=== PATIENT | female | born 1950 | race Caucasian/White ===

== ENCOUNTER 2016-03-09 16:30 | Inpatient (IN) | payer OTHER, MEDICAID ==
[2016-03-09] VITALS (7 sets, daily range): BP systolic 97–126; BP diastolic 64–75; PULSE 77–87; RESP 14–24; O2SAT 94–98
[~2016-03-09] VITALS: Ht 160 cm; Wt 109.8 kg
[~2016-03-09 16:30] MED LIST: ALBU8.5H2 IH; ASPI-973 PO; CHOL100045 PO; CLOT60CR TOPICAL; CYAN1TAB42 PO; DICL100G30 TOP; DOXE50CA3 PO; FLUO40CA PO; FUR20 PO; HYDR-656 PO; LEVO100T6 PO; METF500T4 PO; ONDA4TAB12 PO; POTA20TA16 PO; PREG150C PO
[2016-03-09] MEDS ORDERED: 0.9% Sodium Chloride 1,000 ML IV ONE (16:50)
[2016-03-09 17:28] LABS: BASOPHILS % (AUTO) 0.5 % (0-3)
[2016-03-09 17:31] LABS: EOSINOPHILS % (AUTO) 3.2 % (0-5); MONOCYTES % (AUTO) 11.1 % (4-12); Mean Corpuscular Hemoglobin 28.2 pg (27.0-35.0); Mean Corpuscular Volume 91.8 fL (81-100); NEUTROPHILS % (AUTO) 39.7 % (40-74); Platelet Count 229 bil/L (150-400)
--- NOTE | 2016-03-09 17:41 | DRSVH ---
PROCEDURE: X-RAY CHEST ONE VIEW, PORTABLE ([id number]) INDICATIONS: chills TECHNIQUE: One view of the chest was acquired. COMPARISON: [facility], CR, XR CHEST 1VW (PORTABLE), 02/03/2016, 13:54. FINDINGS: Surgical changes and devices: Right Port-A-Cath is unchanged. Surgical clips are present at the thora cic inlet and at the left chest wall. Lungs and pleura: Mild streaky opacities at bilateral lung bases. No pleural effusion or pneumothorax . Mediastinum: Mediastinal contours appear normal. Heart size is normal. Bones and chest wall: No suspicious bony lesions. Overlying soft tissues appear unremarkable. IMPRESSION: Bibasilar streaky radiopacities. Differential considerations include atelectasis, aspirat ion, infection. Dictated by: Khushbu Harmon M.D. on 03/09/2016 at 17:38 Approved by: Khushbu Harmon M.D. on 03/09/2016 at 17:39
[2016-03-09 17:53] LABS: TROPONIN T < 0.010 ug/L (0.0-0.011)
[2016-03-09 18:00] LABS: Lipase 10 U/L (13-60); Magnesium 1.4 mg/dL (1.6-2.6)
[2016-03-09] MEDS: HYDROmorphone 1 mg/mL Inj IVPUSH PRN ×2 (18:01→21:25)
[2016-03-09] MEDS: Ondansetron 2 mg/mL 2 mL Inj IVPUSH PRN (18:01)
[2016-03-09] MEDS ORDERED: Meropenem Inj 1,000 MG in IV Premix 1 EACH IV ONE (18:20)
--- NOTE | 2016-03-09 18:20 | ED.REPORT ---
HPI-Abd Pain F 40 and Over Date of Service Mar 09, 2016 ED Provider: Elizabeth Cruz MD Pt is a 65 y/o female w/ a hx of primary metastatic ovarian cancer on chemotherapy, diabetes, hypertension, presenting to the ED from [facility] due to possible peritoneal infection. She has a peritoneal drain in place and purulent fluid was pulled out of it today at the [facility] after she came in because she has been feeling unwell for a few days and noticed a red tender spot over her left abdomen. She was admitted last December and January for infections. She saw her oncologist Dr. Winkler and was given antibiotics and iron supplements. She developed diarrhea and stopped the antibiotics which caused her diarrhea to resolve. She c/o associated generalized weakness, nausea, chills, abdominal pain. She denies fever, vomiting , diarrhea, bloody stools. CODE STATUS: FULL CODE - Discussed with the patient during interview in the ED today Oncologist: Cathi Nursing Notes Stated Complaint: WOUND INFECTION-SENT FROM [facility] Chief Complaint: Female Abdominal Pain Nursing Notes Reviewed: Yes Allergies: Coded Allergies: hydrocodone (Verified Allergy, Severe, Rash,Itching,, 11/27/15) cephalexin (Verified Allergy, Intermediate, itching, vomiting, 11/27/15) Scheduled Aspirin (Aspirin) 81 Mg Tablet 81 MG PO DAILY Cholecalciferol (Vitamin D3) (Vitamin D) 1,000 Unit Capsule 2,000 UNIT PO DAILY Cyanocobalamin/Folic Acid (Vitamin W03-Hdwqd Acid Tablet) 1 Each Tablet 1 EACH PO DAILY Fluoxetine (Fluoxetine) 40 Mg Capsule 40 MG PO DAILY Levothyroxine (Levothyroxine) 100 Mcg Tablet 100 MCG PO DAILY Metformin (Metformin) 500 Mg Tablet 500 MG PO BID Pregabalin (Lyrica) 150 Mg Capsule 150 MG PO TID Scheduled PRN Albuterol HFA (Proair HFA) 8.5 Gm Hfa.aer.ad 2 PUFFS IH Q4 PRN PRN For Shortness of Breath Clotrimazole (Athlete's Foot) 1 % Cream..g. 1 APPLIC TOPICAL TID PRN PRN dry cracking skin on feet Diclofenac Sodium (Diclofenac Sodium) 1 % Gel..gram. 1 APPLIC TOP PRN PRN PRN KNEE PAIN Doxepin (Doxepin) 50 Mg Capsule 2 CAP PO HS PRN PRN For Insomnia Ondansetron ODT (Ondansetron ODT) 4 Mg Tab.rapdis 4 MG PO q8hr PRN PRN For Nausea hydrOXYzine Hcl (HydrOXYzine Hcl) 25 Mg Tablet 25 MG PO TID PRN PRN For Anxiety or Agitation General Time Seen by MD: 18:08 Chief Complaint Other (Possible peritoneal infection) Hx Obtained From: Patient Arrived By: Wheelchair Sudden in Onset?: No Onset Occurred: 3 days ago Symptom Duration: Since onset Progression since Onset: Gradually worsening Location: : LLQ: LUQ Quality: Painful Severity: Current: Mild Severity: Maximum: Moderate Recent Healthcare: Recent doctor visit, Recent hospitalization, Recent testing , Previous diagnosis, Prior workup Similar Sx Previous: Yes Past Medical History Past Medical History Notes: Oncologist: Cathi Past Medical History Metastatic ovarian cancer HTN DM - metformin (with neuropathy) Breast CA Fibromyalgia Hernia Anxiety Depression Past Surgical History Port-a-cath Lumpectomy Lymphnodes Thyroid Reports: Appendectomy, Hysterectomy Family History CAD - father's side Smoking History Former Smoker Social History Alcohol Use: "Social" Drug Use: THC Ambulatory Status Wheelchair Review of Systems Constitutional: Reports: Chills, Weakness - generalized, Denies: Fever Respiratory: Denies: Non-productive cough Cardiovascular: Denies: Chest pain GI: Reports: Abdominal pain, Nausea, Denies: Bloody/tarry stool, Diarrhea, Hematochezia, Vomiting Complete sys rev & neg: except as marked. Skin: Reports Rash Neurologic: Denies: Confusion Physical Exam Vital Signs Vital Signs (First) Date Time Temp Pulse Resp B/P Pulse Ox O2 Delivery O2 Flow Rate FiO2 03/09/16 16:35 36.9 85 22 112/68 94 Room Air 03/09/16 17:17 2 Initial VS: Reviewed Head / Eyes: Atraumatic, Normocephalic, PERRL ENT: Mucous membranes moist, Conjunctiva normal, No scleral icterus Neck: Supple, Full range of motion Skin: Warm, Dry Neurologic: Alert, Oriented, Nonfocal Psychiatric: Mood/affect normal, Behavior normal, Normal thought content General/Constitutional: Awake, Alert, Cooperative Chronically ill-appearing Respiratory / Chest: Atraumatic, Breath sounds NL, Breath sounds = bilat, No respiratory distress, No rales, No rhonchi, No wheezing, No retractions, No stridor, No chest tenderness, No chest wall deformity, No crepitus Cardiovascular: Heart rate NL, Regular rhythm, Heart sounds NL, No gallop, No murmurs, No rubs, Cap refill not delayed, Peripheral circulation NL Lower Ext Edema: Positive: Bilateral 2+, Pitting Abdomen: Atraumatic, Soft, No rebound Abdomen is tender on the left side where there is a left-sided peritoneal catheter which has surround erythema, edema, and induration. No tenderness to palpation on the right. Back: Full range of motion, Painless range of motion Interpretation & Diagnostics Lab Results Interpretation Result Diagram: 03/09/16 1715 03/09/16 1715 Test 03/09/16 17:15 White Blood Count 1.9th/mm3 (3.8-10.1) Red Blood Count 3.19mil/mm3 (3.90-5.20) Hemoglobin 9.0g/dL (12.0-15.6) Hematocrit 29.3% (35.0-46.0) Mean Corpuscular Volume 91.8fL (81-100) Mean Corpuscular Hemoglobin 28.2pg (27.0-35.0) Mean Corpuscular Hemoglobin Concent 30.7% (32.0-37.0) Red Cell Distribution Width 20.8% (12.3-15.4) Platelet Count 229bil/L (150-400) Neutrophils (%) (Auto) 39.7% (40-74) Lymphocytes (%) (Auto) 45.0% (14-46) Monocytes (%) (Auto) 11.1% (4-12) Eosinophils (%) (Auto) 3.2% (0-5) Basophils (%) (Auto) 0.5% (0-3) Sodium Level 137mEq/L (134-144) Potassium Level 3.7mEq/L (3.5-5.2) Chloride Level 96mEq/L (97-108) Carbon Dioxide Level 30mmol/L (18-29) Blood Urea Nitrogen 13mg/dL (8-27) Creatinine 0.49mg/dL (0.57-1.00) Estimat Glomerular Filtration Rate 183mL/min (>59) Glucose Level 141mg/dL (60-99) Lactic Acid Level 1.2mmol/L (0.4-2.0) Calcium Level 8.4mg/dL (8.5-10.1) Magnesium Level 1.4mg/dL (1.6-2.6) Total Bilirubin 0.6mg/dL (0.0-1.2) Aspartate Amino Transf (AST/SGOT) 19U/L (0-50) Alanine Aminotransferase (ALT/SGPT) 20U/L (0-32) Alkaline Phosphatase 132U/L (25-165) Troponin T < 0.010ug/L (0.0-0.011) Total Protein 5.3g/dL (6.4-8.4) Albumin 2.4g/dL (3.4-5.0) Lipase 10U/L (13-60) ECG Interpretation ECG Interpretation: Sinus rhythm rate 79 RBBB T wave inversion in AvR and V1 Time: 18:31 Interpreted by: ED physician Normal ECG Interpretation: No acute ischemic changes, No change from prior ECGs X-Ray Chest Interpretation Chest Xray Interpretation: IMPRESSION: Bibasilar streaky radiopacities. Differential considerations include atelectasis, aspiration, infection. Dictated by: Khushbu Harmon M.D. on 03/09/2016 at 17:38 Approved by: Khushbu Harmon M.D. on 03/09/2016 at 17:39 View: Portable, 1 view Interpretation / Wet Read by: Interpret - Radiologist Re-Eval/Medical Decision Med Decision/Clinical Course 65-year-old female with metastatic ovarian cancer with ascites sent here from oncology clinic with concern for peritonitis. Differential diagnosis includes but is not limited to peritonitis versus cellulitis versus pneumonia versus urinary tract infection. Patient's ascitic fluid Gram stain shows gram- negative rods. She was last here in January with gram-negative peritonitis, and treated with meropenem. I have started her on meropenem in the emergency department, given her a fluid bolus, and admitted her to the hospitalist service. She is neutropenic. I also discussed the case with her oncologist who requested she be started on Neupogen. I discussed this with the hospitalist who is aware. Patient is amenable to admission at this time with oncology following Source of Hx: Old records Re-Evaluation/Progress : Time of Eval: 18:31 Re-Evaluation/Progress Note: Pt rechecked. Informed pt of need for admission due to abnormal lab values and peritoneal infection. Pt understands and agrees with plan for admission. All questions addressed. Consultation #1: Referral / Consult Name: Cesar Raines MD Consulted With: Hospitalist Call Returned at: 19:11 Executive Admin: Will see patient, Agrees with eval, Agrees with plan, Accepts admit Note: Case discussed. Consultation #2: Referral / Consult Name: Lance Winkler MD Call Returned at: 19:16 Executive Admin: Agrees with eval, Agrees with plan Note: Discussed case with oncology. Counseled Regarding: Diagnosis, Lab results, Need for admission Discharge & Departure Primary Impression: Bacterial peritonitis Additional Impression: Gram-negative bacterial infection Disposition: ADMITTED TO HOSPITAL Discharge Condition All VS Reviewed: Yes Condition: Stable Referrals: Heide Lowery MD (PCP) Lance Winkler MD Attestation Portions of this note were transcribed by Alvaro Villagomez. I, Dr. Cruz personally performed the history, physical exam and medical decision-making; I reviewed and confirmed the accuracy of the information in the transcribed note. Signed by Evy Garvey, 03/09/16 - [id number] copies to: Lance Winkler MD; Heide Lowery MD, Rebecca A MD Mar 09, 2016 18:20 ALVARO VILLAGOMEZ Mar 09, 2016 18:36
[2016-03-09] MEDS ORDERED: Polyethylene Glycol (PEG) 17 Gm Powder PO PRN (19:50)
[2016-03-09] MEDS ORDERED: MetoCLOpramide 5 mg/mL 2 mL Inj IVPUSH PRN (19:50)
[2016-03-09 21:50] LABS: APPEARANCE,URINE CLEAR (CLEAR,HAZY); COLOR,URINE DARK YELLOW (YELLOW)
[2016-03-09 21:51] LABS: OCCULT BLOOD,URINE NEGATIVE (NEGATIVE); UROBILINOGEN,URINE NORMAL (NORMAL)
--- NOTE | 2016-03-09 23:00 | NUR ---
Admission Pt admitted at 2054 to room 242-1 in stable condition. Pt assisted to the bathroom to void upon arrival. Urine sample collected and sent to lab. Pt placed on home dose of oxygen at 2 L. Pt placed on telemetry monitoring and noted to be in a SR with IVCD per auto transmission technician. Pt reports 8/10 pain to left upper abdominal quadrant . Redness and heat noted to site distal of pigtail drain. Pigtail drain intact and clamped RUC port-a cath accessed and intact. Initial assessment completed as charted. Large right abdominal hernia noted. Dr. Baker notified of pt's admit to room 242-1 at 2300; awaiting new orders. Call light within reach and bed locked in the low position.
[2016-03-09] MEDS ORDERED: Magnesium Sulf 4 Gm/100 mL H2O 4 GM in IV Premix 1 EACH IV ONE (23:30)
[2016-03-09] MEDS ORDERED: Glucose 40% Oral Gel 15 Gm Tube PO PRN (23:45)
[2016-03-09] MEDS ORDERED: Albuterol 2.5 mg/3 mL Inhalation Solution NEB PRN (23:45)
[2016-03-09] MEDS ORDERED: Doxepin 50 mg Capsule PO PRN (23:50)
[2016-03-09] MEDS ORDERED: hydrOXYzine Pamoate 25 mg Capsule PO PRN (23:50)
[2016-03-09] MEDS ORDERED: Filgrastim 480 mCg/1.6 mL Inj SUBQ ONE (23:55)
--- NOTE | 2016-03-09 23:55 | PCM.HPMED ---
Subjective Date of Service Mar 09, 2016 Primary Provider: Admitting Physician: Cesar Raines MD Primary Care Physician: Heide Lowery MD Attending Physician: Cesar Raines MD Chief Complaint: Abdominal pain, discolored peritoneal fluid History of Present Illness: Patient is a 65 year old female with a history of ovarian cancer with progressive ascites currently undergoing chemo, breast cancer s/p lumpectomy and chemo, DM2, HTN, hypothyroidism, HLP, and depression. She presented to [facility] ED on 03/09/16 from the [facility]. She was sent over by Dr. Winkler due to a concerning appearance of her peritoneal fluid and erythema of the abdomen at the site of a previous catheter. Dr. Winkler was worried about a recurrence of bacterial peritonitis and Dr. Wright agreed to evaluate the patient further. The patient reports being more short of breath than her baseline, increased weakness/fatigue, nausea, having chills, and increased thirst. She has 8/10 abdominal pain and has noticed increased redness on the left side of her abdomen over the last few days. She denies fever, vomiting, dysuria/hematuria. Her appetite is poor but it has been since she started chemo again. She does report that on , 03/04/16, her peritoneal fluid began to look abnormal. She states that she was given antibiotics that day and those caused diarrhea. Patient hospitalized about 1 month ago (02/03/16 to 02/06/16) with bacterial peritonitis. Paracentesis done at that time showed Enterococcus faecalis ( group D strep). Dr. Porter was consulted for antibiotic management. Patient received daptomycin after discharge until 02/11/16. In the ED the patient is afebrile with a heart rate of 82, respiratory rate 18, blood pressure 104/64, and O2 saturation of 98% on 2L via nasal cannula. Labs remarkable for WBC 1.9, HGb 9, magnesium 1.4. Meropenem and IV fluids given in the ED. Peritoneal fluid sent for culture. Patient admitted for management of recurrent peritonitis. Review of Systems: A comprehensive review of systems was conducted with the patient and found to be negative except as above in the history of present illness. Allergies Coded Allergies: hydrocodone (Verified Allergy, Severe, Rash,Itching,, 11/27/15) cephalexin (Verified Allergy, Intermediate, itching, vomiting, 11/27/15) Home Medications From Dr. Winkler's note on 03/09/16: Albuterol HFA 2 puffs Q4-6H PRN SOB Aspirin 81 MG daily Cholecalciferol 2,000 UNIT daily Cyanocobalamin/Folic Acid 1 Tablet daily Doxepin 50-100 mg HS PRN insomnia Fluoxetine 40 mg daily Furosemide 20 mg daily Levothyroxine 100 mcg daily Metformin 500 mg BID Potassium chloride 20 mEq daily Lyrica 150 mg TID Hydroxyzine 25 mg TID PRN anxiety Clotrimazole TID for athlete's foot Diclofenac 1% gel PRN knee pain PMH Ovarian cancer with progressive ascites Remote breast cancer with lumpectomy and chemotherapy BRCA2 positive Morbid obesity Diabetes mellitus 2, had been on metformin Hypertension Hypothyroidism Hyperlipidemia Depression Surgical History Lumpectomy for breast cancer Recent placement of peritoneal drain Family History Negative family history of breast cancer Social History Hx Alcohol Use: Yes (occasional drink now for special occasions) Hx Substance Use: No Hx Tobacco Use: Yes (patient smoked from the ages of approximately [age] 1-1/2 packs per day) Smoking Status: Former Smoker Exam Vital Signs Vital Sign - Last Date Time Temp Pulse Resp B/P Pulse Ox O2 Delivery O2 Flow Rate FiO2 03/09/16 21:27 36.3 87 24 126/75 97 Nasal Cannula 2.00 Exam Alert and oriented x3, no acute distress Head atraumatic, normocephalic PERRLA, EOMI, sclera anicteric Mucus membranes dry, no oral thrush observed No cervical lymphadenopathy, neck supple, nontender No JVD noted Cardiac tones regular rate and rhythm with no murmur appreciated Lungs clear to auscultation bilaterally but diminished; Port-a-Cath in right upper chest Diffuse abdominal tenderness, significant distention - ascites, no bowel tones noted, large hernia in the RLQ; PleurX catheter on left side [place] absent Radial pulses normal and equivalent bilaterally, dorsalis pedis pulses difficult to appreciate bilaterally No cyanosis, clubbing; moderate pitting edema in both lower extremities Site of previous PleurX catheter in left abdomen with approx. 5 cm area of erythema and induration; no open wound Cranial nerves appear to be fully intact, normal speech, patient can move upper and lower limbs grossly Lab and Diagnostics Result Diagram: 1/24/17 1715 1/24/17 1715 X-Rays, CTs and MRIs Chest x-ray IMPRESSION: Bibasilar streaky radiopacities. Differential considerations include atelectasis, aspiration, infection. Dictated by: Khushbu Harmon M.D. on 03/09/2016 at 17:38 12-lead ECG Rate 79 QTc 505 Right bundle branch block Assessment & Plan Patient is a 65 year old female with a history of ovarian cancer with progressive ascites currently undergoing chemo, breast cancer s/p lumpectomy and chemo, DM2, HTN, hypothyroidism, HLP, and depression. She presented to [facility] ED on 03/09/16with signs and symptoms of recurrent peritonitis. Admitted for further evaluation and management. 1. Bacterial peritonitis, acute, present on admission. - Likely represents a recurrence. Patient last hospitalized in late January 2016 with Group D strep peritonitis. - Possible cellulitis in the left abdomen with approx. 5 cm area of erythema and induration. - Infectious disease consultation already ordered as patient required daptomycin during last admission. We appreciate Dr. Porter's recommendations. - Meropenem started in ED. Will order no additional antibiotics at this time until ID can give recommendations concerning this patient. - Peritoneal fluid sent to lab from [facility] and culture pending. Those results will populate under a separate visit from this hospitalization. - Dilaudid 0.5 mg IV available Q3 PRN pain. 2. Ovarian cancer with evidence of loculated ascites and recent placement of a left peritoneal drain, ongoing. - Dr. Winkler is the patient's oncologist. - BRCA2 positive. - Last chemo 03/04/16 with next dose 03/18/16. - Would appreciate the continued involvement of Dr. Winkler in the patient's care during this hospitalization. 3. Leukopenia, acute, present on admission. - Likely secondary to chemotherapy. - Dr. Winkler requested administration of Neupogen. 480 mcg ordered tonight as one time dose. With additional daily doses ordered as well. - Continue to monitor CBC. - Would appreciate the continued involvement of Dr. Winkler for recommendations. 4. Hypomagnesemia, acute, present on admission. - Replaced with 4gm mag sulfate 1 time. - Continue to monitor with mag level. 5. Chronic hypoxic respiratory failure, stable. - Baseline O2 2L via nasal cannula. - Saturation goals 92-96%. - Continue supplemental O2 as needed. 6. Diabetes mellitus Type 2, controlled. - Last A1c on 02/03/16 - 6.4. - Will hold metformin (500 mg BID) at this time. Low dose correctional scale available as needed. - Continue Lyrica 150 mg TID for neuropathic pain. 7. Prolonged QTc, acute, present on admission. - QTc 505. - Avoid QTc prolonging medications where possible. 8. Peripheral edema in the setting of ascites, chronic, ongoing. - Continue furosemide 20 mg daily with potassium 20 mEq daily. - Monitor fluid status closely and consider increased dosing if patient progresses to a decompensated state. 9. Hypothyroidism, chronic, presume stable. - Continue levothyroxine 100 mcg daily. 10. Depression, chronic, presume stable. - Continue fluoxetine 40 mg daily. - Continue hydroxyzine 25 mg TID PRN anxiety. 11. Morbid obesity, chronic. - BMI 42.0. - Bowel regimen PRN. - Antiemetic PRN. - Tylenol available PRN mild pain, fever. - Antacid available PRN. - Albuterol neb available Q4 PRN SOB. - Doxepin 50 mg HS PRN insomnia. Patient admitted under inpatient status with expected length of stay greater than 2 midnights for severity of present symptoms, complexities of treatment plan and risk for adverse events. PCP: Heide Lowery Oncologist: Lance Winkler Resuscitation Status: CPR: Attempt Resuscitation Attending Statement The patient was seen and examined together with Dr. Baker on 03/09 and I agree with the history, exam and plan as outlined in the note above. Deb Baker DO Mar 09, 2016 23:01 Cesar Raines MD Mar 10, 2016 00:04
[2016-03-10] VITALS (10 sets, daily range): BP systolic 105–150; BP diastolic 74–98; PULSE 75–88; RESP 17–19; O2SAT 95–98
[2016-03-10] MEDS: HYDROmorphone 0.5 mg/0.5 mL iSecure Syringe IVPUSH PRN ×3 (00:21→09:11)
[2016-03-10] MEDS ORDERED: Meropenem Inj 1,000 MG in IV Premix 1 EACH IV SCH (00:30)
--- NOTE | 2016-03-10 03:00 | NUR ---
Neutropenic Precautions: Pt placed in Neutropenic precautions.
[2016-03-10 05:41] LABS: BASOPHILS % (AUTO) 0 % (0-3); EOSINOPHILS % (AUTO) 4.5 % (0-5); MONOCYTES % (AUTO) 15.6 % (4-12); Mean Corpuscular Hemoglobin 28.1 pg (27.0-35.0); Mean Corpuscular Volume 94.6 fL (81-100); NEUTROPHILS % (AUTO) 40.2 % (40-74); Platelet Count 209 bil/L (150-400)
[2016-03-10 06:01] LABS: Magnesium 2.4 mg/dL (1.6-2.6); Phosphorus 3.1 mg/dL (2.5-4.9)
[2016-03-10] MEDS: Insulin LISPRO 300 Unit/3 mL Inj SUBQ SCH ×4 (07:54→21:45)
[2016-03-10] MEDS: Potassium Chloride 20 mEq SR Tablet PO SCH (08:02)
--- NOTE | 2016-03-10 08:42 | NUR ---
Social Work: Screening Data: Pt is a 65 y/o female admitted for peritonitis. Pt's PCP is Dr Lowery, [facility]. Readmit score is 7. EMR reviewed. Per previous visits, pt has history with [facility]. Pt will likely d/c home via POV with resume [facility]. CLIENT LIAISON will continue to follow if needs arise. Assessment: Pt who is independent at baseline. Plan: Pt will ikely d/c home via POV with resume [facility]. CLIENT LIAISON will continue to follow if needs arise. FREDERIC Burgos
--- NOTE | 2016-03-10 11:36 | CONS ---
[address] [address] CONSULTATION REPORT PATIENT: CORIE RAMIREZ : 1950 MR#: [id number] ADMIT: 03/09/2016 JOB ID: [id number] DATE OF SERVICE: 03/10/2016 INFECTIOUS DISEASE CONSULTATION: I thank Dr. Winkler for this timely consult. REASON FOR CONSULTATION: Peritonitis, with abdominal wall cellulitis. HISTORY OF THE PRESENT ILLNESS: The patient is an unfortunate woman well known to me from an admission last month in January 2016. She had developed breast cancer about a decade ago and survived and eventually did well with that but then went on to develop two years ago, ovarian cancer, and a malignant ascites. She has been receiving chemo through Dr. Winkler's office for this ovarian cancer and malignant ascites since January. She has had a PleurX drain in her peritoneal fluid and every couple days, she takes out from 500 cc up to a L of fluid to relieve her abdominal fullness and pain. In late January the patient developed fever, rigors and confusion, and was admitted to this facility with enterococcal peritonitis secondary to malignant ascites and the chronic cutaneous drain. At the time of discharge in late January, we were wanting to give the patient linezolid but we could not because she was on high-dose Prozac and so, we decided to give daptomycin on an outpatient basis, and the patient returned to this facility every day until basically February 10 to complete a course of daptomycin for enterococcal peritonitis. The patient did okay for two weeks after conclusion of the daptomycin but then noticed some redness just inferior to the exit site of her PleurX drain. This area of redness was somewhat tender but was not associated with too much in the way of constitutional symptoms. So, the patient finished her IV daptomycin in late January and did reasonably well until about three or four days ago when she developed increasing abdominal pain in association with this erythema, which had been present for a few days before that. She was able to continue to eat and drink and was doing okay though except for the increasing abdominal pressure. She saw Dr. Winkler and was prescribed an oral antibiotic, which we cannot find the name of at this point. She said that the oral antibiotic actually seemed to make her worse and caused additional GI symptoms including diarrhea, so she stopped it. She then saw Dr. Winkler again yesterday who was concerned about the increased abdominal fullness, pressure and erythema just below the exit site of the PleurX catheter. He recommended she come to the hospital and be admitted at that time, and also sent fluid along for appropriate culture. His tentative diagnosis yesterday in clinic was that probably the patient had a recurrent peritonitis. Dr. Winkler also noticed her neutrophil count seemed inappropriately low, given that she is only receiving Taxol. PAST MEDICAL HISTORY: 1. Ovarian cancer with progressive ascites requiring PleurX drain, which was placed in December, and ongoing treatment with Taxol. 2. History of breast cancer 12 years ago with lumpectomy and chemo, now cured. 3. Morbid obesity. 4. Type 2 diabetes. 5. Peripheral neuropathy. 6. Hypertension. 7. Depression. SOCIAL HISTORY: The patient was a heavy drinker until 12 years ago. She now drinks minimally. She smokes marijuana for medicinal purposes. She was a cigarette smoker until 12 years ago also and quit at that time. She lives by herself, but has visiting nurses and on a frequent basis. FAMILY HISTORY: Negative for TB. REVIEW OF SYSTEMS: Done. The patient has no significant headache today. No change in vision. No sores in the mouth. No sore throat or trouble swallowing. Minimal cough, though she is chronically somewhat short of breath and requires home O2. No chest pain. She notes abdominal fullness and some pain but without nausea or vomiting. She tells us that she just had breakfast this morning and tolerated it well. No diarrhea. No dysuria. No chronic [place]. No focal musculoskeletal complaints are noted. PHYSICAL EXAMINATION: Reveals a morbidly obese woman who is currently sitting up on the side of her bed having just had breakfast and does not look critically ill in any way. She is afebrile and has been since her admission last night, currently 36.6. Her pulse is 82, respiratory rate 18, blood pressure 105/77. She is saturating well on 2 L. Examination of the head is unremarkable. The eyes without conjunctivitis. The oral cavity without thrush or pharyngitis. The neck is obese but without focal tenderness or mass. She has a port in her right upper chest which is nontender. Her lungs are notable for decreased breath sounds and dullness at both bases. No crackles are heard in the aerated part of the lungs. Cardiac tones: Regular rate and rhythm without significant murmur. The abdomen is grossly distended. There is a reducible abdominal wall hernia on the right. On the left side, there is a PleurX catheter protruding from the abdomen, and there is an area of about 4 cm in diameter of cellulitis just below the PleurX catheter. In the erythematous area, one can palpate what feels like a disk or some foreign body which must be in some way related to the PleurX catheter. The extremities are edematous but without evidence of cellulitis or synovitis. The patient is neurologically intact. She is alert and oriented x3. She is able to walk and easily move around the bed without any difficulty. LABORATORIES: Include white count 1800, platelet count 209,000. Creatinine is 0.37. LFT basically normal. Lipase 10. Urinalysis without white cells. The peritoneal fluid that was removed yesterday at the time of admission has 100,000 white cells, 5000 red cells, 91% segs. An LDH is greater than 2500 on the peritoneal fluid and a peritoneal fluid glucose 136. Cytology has been sent on this fluid. Blood cultures from yesterday are negative. The culture from the abdominal wall is growing gram-negative rods in heavy quantity. The peritoneal fluid itself is also growing gram-negative rods in heavy growth, and this appears to be a pseudomonas. In going back through the labs over the patient's past decade I do not see any prior pseudomonas isolates to base our conclusions on. IMAGING: A chest x-ray done yesterday shows streaky opacities at the bases but no pleural effusions which is surprising. IMPRESSION: This unfortunate patient with advanced and relapsed ovarian cancer, and a PleurX drain to drain her chronically accumulating malignant ascites, now presents with what is almost certainly a gram-negative peritonitis with associated abdominal wall cellulitis. The likely organism here is Pseudomonas aeruginosa, and it is likely that this is combined with the malignant ascites. Empiric therapy will consist of at least two drugs aimed at pseudomonas until we have clarity as to the identification and susceptibility of the organism. RECOMMENDATIONS: 1. Will treat with IV meropenem and oral Cipro. 2. Depending on the susceptibilities of the organism it may be that we can eventually transition to a completely oral therapy but will, of course, be dependent on this organism being susceptible to Cipro and the patient showing improvement. 3. Will closely watch this patient with you. I thank you, Dr. Winkler, for this consultation.
[2016-03-10] MEDS: Filgrastim 480 mCg/1.6 mL Inj SUBQ SCH (11:49)
[2016-03-10] MEDS: Meropenem Inj 2,000 MG in 0.9% Sodium Chloride 100 ML IV SCH ×2 (11:50→21:44)
--- NOTE | 2016-03-10 13:54 | NUR ---
Pain: P: Pt has had continued c/o pain at peritoneal drain site, rating 6-7/10. I: Given pain medications as scheduled, new orders for po pain meds obtained after patient stated that po pain meds last longer for her. E: Rating pain at peritoneal drain site as 6/10. Area reddened and warm to the touch. Abx given per order this shift.
--- NOTE | 2016-03-10 14:20 | PCM.PNMED ---
Subjective Date of Service Mar 10, 2016 Subjective reports left sided abdominal pain. no other new issues/complaints. no vomiting. no diarrhea Exam Vital Signs Vital Sign - Last Date Time Temp Pulse Resp B/P Pulse Ox O2 Delivery O2 Flow Rate FiO2 03/10/16 12:49 36.8 76 18 108/74 97 Nasal Cannula 2.00 Intake and Output 03/09/16 03/09/16 03/10/16 Cumulative From/Thru 15:00 23:00 07:00 03/09/16 16:35 - 03/10/16 06:15 Intake Total 1000 ml 782 ml 1782 ml Output Total 300 ml 300 ml Balance 1000 ml 482 ml 1482 ml Intake Oral 637 ml 637 ml IV Total 1000 ml 145 ml 1145 ml Output Urine Total 300 ml 300 ml General: Alert, Cooperative, No Acute Distress Eyes: Scleral Anicteric Mouth: Mucous Membr Moist/[place] Neck: Supple Chest & Lungs: Chest Wall Normal, Clear to auscultation & percussion Cardiovascular: Regular Rate/Rhythm Abdomen: Tender, Non-distended, Normoactive bowel tones, Soft, Other (cath in place at left mid abdomen. there is an area of erythema consistent with cellulitis and left abdominal wall and tender to palp) Extremities: No cyanosis/clubbing/edma bilat Neurological: Grossly Neurologically Intact, Normal Speech IVs and Medications Medications Reviewed: Medications were reviewed in detail Lab and Diagnostics Result Diagram: 03/10/16 0530 03/10/16 0530 X-Rays, CTs and MRIs Chest x-ray IMPRESSION: Bibasilar streaky radiopacities. Differential considerations include atelectasis, aspiration, infection. Dictated by: Khushbu Harmon M.D. on 03/09/2016 at 17:38 12-lead ECG Rate 79 QTc 505 Right bundle branch block Assessment & Plan 65 year old female with a history of ovarian cancer with progressive ascites currently undergoing chemo, breast cancer s/p lumpectomy and chemo, DM2, HTN, hypothyroidism, HLP, and depression. She presented to [facility] on 03/09/16with signs and symptoms of recurrent peritonitis. # Acute bacterial peritonitis, present on admission. ongoing - hospitalized in late January 2016 with Group D strep peritonitis. - Possible cellulitis in the left abdomen with approx. 5 cm area of erythema and induration. - appreciate ID consult. will f/u w/ recs - c/w IV meropenem and oral Cipro per ID recs - f/u pending cultures. # Ovarian cancer with evidence of loculated ascites and recent placement of a left peritoneal drain, ongoing. - Dr. Winkler is the patient's oncologist. - BRCA2 positive. - Last chemo 03/04/16 with next dose 03/18/16. - Would appreciate the continued involvement of Dr. Winkler in the patient's care during this hospitalization. # Leukopenia, acute, present on admission. - Likely secondary to chemotherapy. - post Neupogen on admission. With additional daily doses ordered as well per oncology recs. - Continue to monitor CBC. # Hypomagnesemia, acute, present on admission. - Replaced and resolved. # Chronic hypoxic respiratory failure, stable. - Baseline O2 2L via nasal cannula. - Saturation goals 92-96%. - Continue supplemental O2 as needed. # Diabetes mellitus Type 2, controlled. - Last A1c on 02/03/16 - 6.4. - Will hold metformin (500 mg BID) at this time. - Low dose correctional scale available as needed. - Continue Lyrica 150 mg TID for neuropathic pain. # Prolonged QTc, acute, present on admission. - QTc 505. - Avoid QTc prolonging medications where possible. - replete electrolytes # Peripheral edema in the setting of ascites, chronic, ongoing. - Continue furosemide 20 mg daily with potassium 20 mEq daily. - Monitor fluid status closely and consider increased dosing if patient progresses to a decompensated state. # Hypothyroidism, chronic, presume stable. - Continue levothyroxine 100 mcg daily. # Depression, chronic, presume stable. - Continue fluoxetine 40 mg daily. - Continue hydroxyzine 25 mg TID PRN anxiety. # Morbid obesity, chronic. - BMI 42.0. Dispo: 2-4 days pending cultures results and improved infection Resuscitation Status: CPR: Attempt Resuscitation Time spent 35 min Tavo Gordon Mar 10, 2016 14:20
[2016-03-10] MEDS: 0.9% Sodium Chloride 250 ML IV SCH (15:12)
[2016-03-10] MEDS ORDERED: HepLOK Flush 100 unit/mL 5 mL Inj IVFLUSH PRN (15:15)
[2016-03-10] MEDS ORDERED: Sodium Chloride LOK Flush 10 mL Syringe IVFLUSH PRN ×2 (15:15)
[2016-03-10] MEDS: Alum-Mag Hydrox-Simeth 30 mL Suspension PO PRN (21:53)
--- NOTE | 2016-03-10 22:52 | PROG NOTE ---
[address] [address] PROGRESS NOTE PATIENT: CORIE RAMIREZ : 1950 MR#: [id number] ADMIT: 03/09/2016 JOB ID: [id number] DATE: 03/10/2016 HOSPITAL ROUNDS: This is a 65-year-old woman who was admitted yesterday for signs and symptoms of recurrent bacterial peritonitis and positive peritoneal fluid from the PleurX catheter for gram-negative rods. She has remained clinically relatively stable; the fluid is growing out gram-negative rods suspicious for Pseudomonas. She has been managed by the hospitalist team and by Dr. Porter, and is now on meropenem and ciprofloxacin. Blood cultures remain negative. The goal is to stabilize her it, and ultimately if sensitivities allow, discharge her home on oral medications rather than the IV treatment she required previously for a different bacterial infection. Subjectively, she is lying in bed comfortably. She is talking on the phone when I came in. She has eaten some today, but has not touched her dinner. She states she has some discomfort in the abdomen, but no luan pain and otherwise feels reasonably well. OBJECTIVE: The patient looks comfortable enough. Her vital signs show a temp of 36.5, pulse 80, respiratory rate 18, blood pressure 111/66. Pulse ox 98% on 2 L. She is not using oxygen right now, however. I's and O's show that she took in 1394 mL orally up to the time of this dictation, and 1000 mL yesterday, 145 mL today IV. She weighs 106.8 kg. Head and neck: Alopecia related to chemotherapy administered eight days ago. Pupils equal, round, reactive. No icterus or conjunctivitis. Oral mucosa is pink and moist without thrush or lesions. Lungs: Clear to auscultation anteriorly and laterally. Cardiac: Rhythm is regular. Abdomen: Protuberant the patient has very large panniculus. In addition, she has ascites and a large right lower quadrant hernia making for a difficult to manage abdomen in terms of her moving around in bed. She has a PleurX catheter in place right now, just not draining, and there is some abdominal wall erythema but it is better than it was yesterday. Extremities showed 1+ edema. LABORATORY VALUES: The patient remains neutropenic with a white count of 1.8 and 40.2% neutrophils, hemoglobin 8.3, hematocrit 27.9, and platelet count of 209. BUN and creatinine are 11 and 0.37. Electrolytes normal except for CO2 of 33, glucose 120. The patient did have a tap which showed 100,000 white cells, 5250 polys, 91% polys in the fluid, it was brown and turbid with LDH greater than 2500, glucose 136. The microbiology shows gram-negative rods and culture so far shows gram-negative rods, probably Pseudomonas. Sensitivities to follow. Blood cultures are negative x2. IMAGING: Chest x-ray performed yesterday showed bibasilar streaky opacities consistent with atelectasis. ASSESSMENT AND RECOMMENDATIONS: 1. Recurrence of infection in the abdomen, this time appearing apparently with a different organism, and clinically is likely responding to antibiotic treatment. It is not clear to me whether we should leave the PleurX catheter in and continue draining it, or take it out. It would make sense that one would want to drain as much as possible to help deal with the infection. I need to talk with the hospitalist team about that. 2. In terms of her post chemotherapy neutropenia, she is to continue to receive G-CSF on a daily basis at 480 mcg. She has had an excellent biochemical response to chemotherapy. The goal was to achieve as close to remission as possible, now with a second peritoneal infection we will need to deal with ultimately removing the port and deciding whether she can tolerate anymore chemotherapy. At this time, she is not in any way stable for chemotherapy .
[2016-03-11] VITALS (9 sets, daily range): BP systolic 116–126; BP diastolic 77–88; PULSE 75–89; RESP 17–20; O2SAT 95–98
[2016-03-11] MEDS: Meropenem Inj 2,000 MG in 0.9% Sodium Chloride 100 ML IV SCH (04:06)
[2016-03-11 05:03] LABS: Mean Corpuscular Hemoglobin 27.8 pg (27.0-35.0); Mean Corpuscular Volume 92.9 fL (81-100)
--- NOTE | 2016-03-11 06:30 | NUR ---
Pain / VS/ Tele Pt c/o left sided abdominal pain around Pleur-X drain site, medicated with PO Oxycodone 10mg about every 4 hours during the night with good temporary relief of pain. VS stable and afebrile. No c/o chest pain, Tele SR with IVCD and PACs. O2 @ 2L NC, SpO2 sats 96-97%.
[2016-03-11] MEDS: Insulin LISPRO 300 Unit/3 mL Inj SUBQ SCH ×4 (08:00→22:00)
[2016-03-11] MEDS: Potassium Chloride 20 mEq SR Tablet PO SCH (09:11)
[2016-03-11] MEDS: Filgrastim 480 mCg/1.6 mL Inj SUBQ SCH (09:12)
[2016-03-11] MEDS: Alum-Mag Hydrox-Simeth 30 mL Suspension PO PRN (09:17)
[2016-03-11] MEDS: Ondansetron 2 mg/mL 2 mL Inj IVPUSH PRN (10:57)
[2016-03-11] MEDS: 0.9% Sodium Chloride 250 ML IV SCH (11:08)
--- NOTE | 2016-03-11 11:39 | PROG NOTE ---
[address] [address] PROGRESS NOTE PATIENT: CORIE RAMIREZ : 1950 MR#: [id number] ADMIT: 03/09/2016 JOB ID: [id number] DATE: 03/11/2016 INFECTIOUS DISEASE FOLLOWUP NOTE: REASON FOR FOLLOWUP: Serratia peritonitis. INTERIM HISTORY: Recall this is the unfortunate 65-year-old woman with advanced and progressive ovarian cancer with malignant ascites requiring a peritoneal drain for frequent relief of intraperitoneal pressure. The patient reports that overnight her abdominal pain has decreased somewhat in the area of inflammation around the peritoneal drain but she has developed very severe nausea this morning. No fevers or chills that she has noted. No change in her chronic respiratory distress. No extension that she has noticed in the redness on her abdominal wall. PHYSICAL EXAMINATION: Reveals a woman who is grossly uncomfortable, lying in bed, and looks quite ill. Temperature 36.5. She has been afebrile since admission. Pulse 81, respiratory rate 18, blood pressure 121/81, saturating well on 2 L. Mental status, is unremarkable, though she does appear quite depressed. The eyes are unchanged. No scleral icterus or conjunctivitis. Lungs relatively clear. Maybe some decreased breath sounds at the bases, but no rales are heard. Cardiac tones distant. The abdominal wall cellulitis just below the insertion site of the peritoneal drain is little changed and is 4-5 cm across again today, with moderate tenderness. Her abdomen is distended and there is still, of course, a large hernia on the right side. No change in the extremities. LABORATORIES: Include a white count of 3200. It is worth noting she is not neutropenic and does not need to be in neutropenic precautions. Her hematocrit is 31, her platelet count 256. Creatinine stable at 0.49. The organism isolated from the peritoneal sample collected by Dr. Winkler turns out to be Serratia marcescens. This organism is susceptible to carbapenems as well as quinolones. IMPRESSION: This patient has Serratia peritonitis. Recall that last month she had enterococcal peritonitis and we were able to eradicate that with the drain in place, so I think we can attempt to eradicate this infection without removing the peritoneal drain, which is essential to her comfort at this point. The treatment of serratia can involve a single drug such as Cipro, but many experts would use two drugs early in therapy to make sure the infection is under control, and I think that is reasonable here. RECOMMENDATIONS: 1. Will DC meropenem and then start in its place ertapenem 1 g once a day, as the serratia is very susceptible to this. 2. Will continue with Cipro. 3. Once the patient is ready for discharge, she can be discharged on oral Cipro for about a two-week course for this serratia peritonitis. 4. I am uncertain as to the cause of her severe nausea but Dr. Gordon is seeing her now and will be addressing this. 5. Also note that I have placed a call to Dr. Winkler to discuss this case in more detail.
[2016-03-11] MEDS: Ertapenem Inj 1,000 MG in 0.9% Sodium Chloride 50 ML IV SCH (13:07)
--- NOTE | 2016-03-11 14:29 | PCM.PNMED ---
Subjective Date of Service Mar 11, 2016 Subjective continued left sided abdominal pain. also having nausea this am but no vomiting. no diarrhea Exam Vital Signs Vital Sign - Last Date Time Temp Pulse Resp B/P Pulse Ox O2 Delivery O2 Flow Rate FiO2 03/11/16 14:05 36.8 83 20 126/88 98 Nasal Cannula 2.00 Intake and Output 03/10/16 03/10/16 03/11/16 Cumulative From/Thru 15:00 23:00 07:00 03/09/16 16:35 - 03/11/16 04:34 Intake Total 757 ml 659 ml 3198 ml Output Total 500 ml 425 ml 1225 ml Balance 257 ml 234 ml 1973 ml Intake Oral 757 ml 350 ml 1744 ml IV Total 309 ml 1454 ml Output Urine Total 500 ml 425 ml 1225 ml Exam General: Alert, Cooperative, No Acute Distress Eyes: Scleral Anicteric Mouth: Mucous Membr Moist/[place] Neck: Supple Chest & Lungs: Chest Wall Normal, Clear to auscultation bilat Cardiovascular: Regular Rate/Rhythm Abdomen: Tender, Non-distended, Normoactive bowel tones, Other (cath in place at left mid abdomen. there is an area of erythema consistent with cellulitis and left abdominal wall and tender to palp) Extremities: No cyanosis/clubbing. 1+ edema bilat Neurological: Grossly Neurologically Intact, Normal Speech IVs and Medications Medications Reviewed: Medications were reviewed in detail Lab and Diagnostics Result Diagram: 03/11/1641403/11/16414 X-Rays, CTs and MRIs Chest x-ray IMPRESSION: Bibasilar streaky radiopacities. Differential considerations include atelectasis, aspiration, infection. Dictated by: Khushbu Harmon M.D. on 03/09/2016 at 17:38 12-lead ECG Rate 79 QTc 505 Right bundle branch block Assessment & Plan 65 year old female with a history of ovarian cancer with progressive ascites currently undergoing chemo, breast cancer s/p lumpectomy and chemo, DM2, HTN, hypothyroidism, HLP, and depression. She presented to [facility] on 03/09/16with signs and symptoms of recurrent peritonitis. # Acute Serratia peritonitis, present on admission. ongoing - hospitalized in late January 2016 with Group D strep peritonitis. - Possible cellulitis in the left abdomen with approx. 5 cm area of erythema and induration. - appreciate ID consult. will f/u w/ recs - c/w IV Abx and change meropenem to Ertapenem 1 g once a day - also continue with Cipro. - Per Dr. Porter: "Once the patient is ready for discharge, she can be discharged on oral Cipro for about a two-week course for this serratia peritonitis." # Abdominal ascites secondary to underlying ovarian CA with PleurX catheter in place. poa. ongoing - I discussed with GI (Dr. Amador) who notes that the answer to question about if we should continue to drain ascites fluid from the Pleurx catheter while treating peritonitis and if so how much is beyond the scope of his expertise because the ascites is malignant in nature and not due to hepatic cirrhosis. He is deferring further decision regarding this issue to either oncology or whoever put the catheter in place. - I will try to discuss with Dr. Winkler today but I favor draining some ascitic fluid (perhaps about a liter or even more) given patient reporting discomfort and not having had any drainage for past several days. # Ovarian cancer with evidence of loculated ascites and recent placement of a left peritoneal drain, ongoing. - appreciate Dr. Winkler's consult and input. will f/u w/ recs - BRCA2 positive. - Last chemo 03/04/16 with next dose 03/18/16. # Leukopenia, acute, present on admission. - Likely secondary to chemotherapy. - c/w Neupogen per oncology recs. # Hypomagnesemia, acute, present on admission. - Replaced and resolved. # Chronic hypoxic respiratory failure, stable. - Baseline O2 2L via nasal cannula. - Saturation goals 92-96%. - Continue supplemental O2 as needed. # Diabetes mellitus Type 2, controlled. - Last A1c on 02/03/16 - 6.4. - Will hold metformin (500 mg BID) at this time. - Low dose correctional scale available as needed. - Continue Lyrica 150 mg TID for neuropathic pain. # Prolonged QTc, acute, present on admission. - QTc 505. - Avoid QTc prolonging medications where possible. - replete electrolytes # Peripheral edema in the setting of ascites, chronic, ongoing. - Continue furosemide 20 mg daily with potassium 20 mEq daily. - Monitor fluid status closely and consider increased dosing if patient progresses to a decompensated state. # Hypothyroidism, chronic, presume stable. - Continue levothyroxine 100 mcg daily. # Depression, chronic, presume stable. - Continue fluoxetine 40 mg daily. - Continue hydroxyzine 25 mg TID PRN anxiety. # Morbid obesity, chronic. - BMI 42.0. Dispo: 1-2 days pending clinical improvement Resuscitation Status: CPR: Attempt Resuscitation Time spent 40 min Tavo Gordon Mar 11, 2016 14:29
--- NOTE | 2016-03-11 15:08 | NUR ---
Pain and Nausea patient is alert and oriented X3. able to make needs known. Stable vital signs. Tele SR78, IVCD PAC. c/o pain 7-09/23 this shift to left abdomen. PRN Oxycodone given as ordered with effective results. C/o nausea due to not having bowel movement since 2 days. PRN Miralax and PRN antiemetic given with effective results. patient is able to eat some Jello with out nausea. Medium BM this shift and per patient feeling much better. Drain on the left intact. Right abdomen noticeable Hernia. NS running TKO as ordered with out difficulty via right chest port a cath. Uses bed side commode for toileting. Verbalize the use of call light and call light with in reach for safety. stable mood. Continue to monitor sign and symptoms of infection, Neutropenic precautions, Vitals signs, pain to left abdomen, left abdomen Diony, right abdomen Hernia, and safety. Notify doctor if any abnormal.
--- NOTE | 2016-03-11 23:53 | PROG NOTE ---
[address] [address] PROGRESS NOTE PATIENT: CORIE RAMIREZ : 1950 MR#: [id number] ADMIT: 03/09/2016 JOB ID: [id number] DATE: 03/11/2016 HOSPITAL ROUNDS: This is a 65-year-old woman who was admitted two days ago for bacterial peritonitis. Dr. Porter and the hospitalist team have been managing. 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 She did not become frankly septic and tolerated the infection well, albeit she had abdominal pain, anorexia and erythema around the site and below it. the organism is broadly sensitive and in fact Dr. Porter has planned to continue her on ciprofloxacin when she is discharged. The plan is to keep the PleurX catheter in and draining until such time as she is stable and it appears that she is clearing infection. The PleurX catheter will have to come out because it is likely contaminated. This catheter was placed for palliative purposes. SUBJECTIVE: Subjectively, she is lying in bed, but states she is able to get up on her own without calling for help to go to the commode. She has some appetite and is looking forward to going home. She has a caregiver at home as well. She has no pain and no other constitutional symptoms except for abdominal bloating related to ascites, peritonitis and a large right lower abdominal wall hernia on the right. OBJECTIVE: Objectively, her vital signs remain afebrile with a temp of 36.4, pulse 75, respiratory rate 17, blood pressure 116/81, pulse ox 97% on 2 L although she is not using oxygen right now. Her fluid balance shows that she had taken 1394 mL orally yesterday and put out 800 mL of urine, but weight is up to 109.4 kg from 106.8 kg. The drainage is not listed. Head and neck: Alopecia. Pupils equal, round, and reactive. Normal oral mucosa and oropharynx. Lungs: Clear to auscultation anteriorly and laterally. Cardiac: Rhythm is regular. Abdomen: There is a PleurX catheter in the left lower abdomen with some erythema around a prior tap site just below the PleurX catheter and a large abdominal wall hernia on the right as well as panniculus and ascites. Extremities show 1+ edema. LABORATORY VALUES: The white count is up to 3.2, with hemoglobin 9.4, hematocrit 31.4, platelets 256. The BUN and creatinine are 13 and 0.49. Sodium 136, potassium 3.9, calcium 8.4, glucose 161, albumin 2.4, iron saturation is 9% with a ferritin of 821, consistent with anemia of chronic disease. ASSESSMENT AND RECOMMENDATIONS: Agree with management of her peritonitis. She is remarkably stable and should be able to go home on Cipro. She is currently also receiving ertapenem while still in the hospital. I would recommend continuing Neupogen for the time being, at least for the next three days until the white count normalizes. In addition, we should keep the PleurX catheter in and drain it maximally on a daily basis. I have spoken with Dr. Gordon about this and also Dr. Renae of Surgery, who do not disagree with this approach, and then at the appropriate time remove the PleurX catheter. She is still interested in completing her chemotherapy regimen and going onto a PARP inhibitor with the intention of achieving as close to remission as possible, with the main goal of treatment to minimize her ascites.
[2016-03-12] VITALS (7 sets, daily range): BP systolic 108–132; BP diastolic 68–86; PULSE 78–88; RESP 18–19; O2SAT 94–98
--- NOTE | 2016-03-12 03:34 | NUR ---
Pain/Tele Pt alert and oriented x3. Pt reports some pain pills help her pain. Patient knows to call for pain meds q4h prn to keep pain in control. Pleur X drain dressing cdi. Redness and warmth noted around the Pleurx drain site noted. Pt denies any nausea. Pt mentioned that her nausea went away after having Miralax and having BM yesterday. Telemetry SR in 80s with IVCD. Patient mentioned that doctors during the day mentioned about getting a GI doctor to consult r/t Pleur X drain.
[2016-03-12 05:34] LABS: Mean Corpuscular Hemoglobin 27.9 pg (27.0-35.0); Mean Corpuscular Volume 93.4 fL (81-100); Platelet Count 302 bil/L (150-400)
--- NOTE | 2016-03-12 05:51 | NUR ---
Transfer to [facility] Pt. arrived to room 1018 at 0534. Pt. has portacath present which is patent with IVF going TKO. Pt. was oriented to room. Will continue to monitor.
--- NOTE | 2016-03-12 05:53 | NUR ---
Transfer to 1018 Pt transferred to room 1018 with all belongings, charts, and medications. Report given to [facility].
[2016-03-12 06:16] LABS: BASOPHILS % (AUTO) 0 % (0-3); EOSINOPHILS % (AUTO) 2 % (0-5); MONOCYTES % (AUTO) 16 % (4-12); NEUTROPHILS % (AUTO) 37 % (40-74)
[2016-03-12] MEDS: Insulin LISPRO 300 Unit/3 mL Inj SUBQ SCH ×4 (07:54→22:00)
[2016-03-12] MEDS: Potassium Chloride 20 mEq SR Tablet PO SCH (08:48)
[2016-03-12] MEDS: Filgrastim 480 mCg/1.6 mL Inj SUBQ SCH (10:30)
[2016-03-12] MEDS: Ertapenem Inj 1,000 MG in 0.9% Sodium Chloride 50 ML IV SCH (12:07)
[2016-03-12] MEDS: 0.9% Sodium Chloride 250 ML IV SCH (13:52)
--- NOTE | 2016-03-12 14:46 | PROG NOTE ---
[address] [address] PROGRESS NOTE PATIENT: CORIE RAMIREZ : 1950 MR#: [id number] ADMIT: 03/09/2016 JOB ID: [id number] DATE: 03/12/2016 INFECTIOUS DISEASE FOLLOW UP NOTE: REASON FOR FOLLOWUP: Polymicrobial peritonitis in a patient with malignant ascites due to relapsed ovarian cancer. INTERVAL HISTORY: The patient reports she is feeling gradually better though she has some degree of abdominal distention and thinks she needs to have some more drainage from her Pleurx catheter. She has no fevers or chills today. No significant shortness of breath and she has been able to eat, and in fact, was eating lunch when we came into the room. The patient has no significant cough or shortness of breath. No real change in her abdominal pain, though she is complaining of distention and no sore throat or trouble with swallowing. PHYSICAL EXAMINATION: Reveals an afebrile woman. Temperature 36.8, pulse 78, respiratory rate 18, blood pressure 114/79. She is saturating well on 2 L. Mental status is clear this morning. Lungs decreased breath sounds at the bases but pretty clear. Cardiac tones: Regular rate and rhythm. Abdomen distended with the Pleurx catheter in the left side of the abdomen. There is a patch of erythema below that which is slowly improving and less tender than it was. She also has a large right abdominal hernia and peripheral edema is noted as well. LABORATORIES: Include white count all the way up to 5600 on Neupogen. Platelet count 302. Creatinine 0.59. LFTs normal. Urinalysis without white cells. Blood cultures are negative. The patient did have cultures done as an outpatient. However, prior to this admission, and those have yielded both Pseudomonas and Serratia. Both these are susceptible to meropenem and both are susceptible to Cipro. The patient has been receiving ertapenem and Cipro because we only knew about the Serratia. Chest x-ray: Bibasilar streaky opacities were noted. RECOMMENDATIONS: 1. Will change the ertapenem back to meropenem to cover both of the isolated gram negative rods. The meropenem will be synergistic with Cipro. 2. The patient be discharged at any time on oral Cipro. She indicated that she might prefer to be discharged on Tuesday, March 13 and today and this sounds reasonable. Total course of Cipro should be about 10 days. 3. This case discussed in detail with Dr. Winkler.
--- NOTE | 2016-03-12 15:04 | NUR ---
Social Work Continued Discharge Planning: SW met with patient at bedside to discuss discharge plan. Patient states residing home alone in [place]. Patient states being current with oncologist MD Goncalves whom she sees every for chemo. Patient states having walker and 02 at home. 02 provider as Tiffany. Patient states being current with caregiver support via [facility]. Patient [facility] worker is Kathleen Eugene, F. [phone]. Patient current with [facility] services for caregiver support on . Patient has 16/ week. Patient caregiver also transports patient to and from MD appointments to [facility]. JHON requested that UR specialist fax clinicals to [facility] worker. SW contacted [facility] and spoke to rep Lemos, who confirmed that patient established with services via [facility]. SW to contact [facility] at discharge to ensure caregiver support at discharge. Patient also current with [facility] and services to resume at discharge. Access provided. JHON to follow. PLAN: Home with continued caregiver support via [place]/[facility]. Home 02 and walker at home. Patient current with [facility] and to resume services at discharge. Access provided. Helga DE LA GARZA Addendum: 03/12/16 at 1647 by NIKI SEYMOUR Patient assigned to [facility] healthcare receptionist Harris Garsia, . JHON to advise her of discharge when medically stable. Helga Gordon
--- NOTE | 2016-03-12 15:23 | NUR ---
Evaluation completed. Please go to "Notes" then click on "Assessments and Notes" (bottom left corner of screen). Then select appropriate discipline tab on top of screen.
--- NOTE | 2016-03-12 15:50 | NUR ---
Pleurx Catheter Assisted pt with draining her Pleurx catheter. 250 mL drained. Addendum: 03/12/16 at 1558 by MAGEN YEN RN Drainage was serous sanguinous and foul smelling.
[2016-03-12] MEDS: Meropenem Inj 2,000 MG in 0.9% Sodium Chloride 100 ML IV SCH (17:03)
--- NOTE | 2016-03-12 18:14 | PCM.PNMED ---
Subjective Date of Service Mar 12, 2016 Subjective says feeling better today. denies any new issues/complaints. Exam Vital Signs Vital Sign - Last Date Time Temp Pulse Resp B/P Pulse Ox O2 Delivery O2 Flow Rate FiO2 03/12/16 14:17 36.8 85 19 108/68 98 Nasal Cannula 2.00 Intake and Output 03/11/16 03/11/16 03/12/16 Cumulative From/Thru 15:00 23:00 07:00 03/09/16 16:35 - 03/12/16 05:14 Intake Total 1483 ml 913 ml 5594 ml Output Total 150 ml 700 ml 2075 ml Balance 1333 ml 213 ml 3519 ml Intake Oral 1250 ml 800 ml 3794 ml IV Total 233 ml 113 ml 1800 ml Output Urine Total 150 ml 400 ml 1775 ml Urine/Stool Mix 300 ml 300 ml # Voids 4 4 Exam General: Alert, Cooperative, No Acute Distress Eyes: Scleral Anicteric Mouth: Mucous Membr Moist/[place] Neck: Supple Chest & Lungs: Chest Wall Normal, Clear to auscultation bilat Cardiovascular: Regular Rate/Rhythm Abdomen: Tender, Non-distended, Normoactive bowel tones, Other (cath in place at left mid abdomen. there is an area of erythema consistent with cellulitis and left abdominal wall and tender to palp) Extremities: No cyanosis/clubbing. 1+ edema bilat Neurological: Grossly Neurologically Intact, Normal Speech IVs and Medications Medications Reviewed: Medications were reviewed in detail Lab and Diagnostics Result Diagram: 03/12/16 0503 03/12/16 0503 X-Rays, CTs and MRIs Chest x-ray IMPRESSION: Bibasilar streaky radiopacities. Differential considerations include atelectasis, aspiration, infection. Dictated by: Khushbu Harmon M.D. on 03/09/2016 at 17:38 12-lead ECG Rate 79 QTc 505 Right bundle branch block Assessment & Plan 65 year old female with a history of ovarian cancer with progressive ascites currently undergoing chemo, breast cancer s/p lumpectomy and chemo, DM2, HTN, hypothyroidism, HLP, and depression. She presented to [facility] on 03/09/16with signs and symptoms of recurrent peritonitis. # Acute Serratia peritonitis, present on admission. ongoing - hospitalized in late January 2016 with Group D strep peritonitis. - Possible cellulitis in the left abdomen with approx. 5 cm area of erythema and induration. - appreciate ID consult. will f/u w/ recs - c/w IV Abx per ID recs - also continue with Cipro. - Per Dr. Porter: "Once the patient is ready for discharge, she can be discharged on oral Cipro for about a two-week course for this serratia peritonitis." # Abdominal ascites secondary to underlying ovarian CA with PleurX catheter in place. poa. ongoing - pt wants to hold off on further drainage until talking to Dr. Porter later today. # Ovarian cancer with evidence of loculated ascites and recent placement of a left peritoneal drain, ongoing. - appreciate Dr. Winkler's consult and input. will f/u w/ recs - BRCA2 positive. - Last chemo 03/04/16 with next dose 03/18/16. # Leukopenia, acute, present on admission. - Likely secondary to chemotherapy. - Neupogen per oncology recs. # Hypomagnesemia, acute, present on admission. - Replaced and resolved. # Chronic hypoxic respiratory failure, stable. - Baseline O2 2L via nasal cannula. - Saturation goals 92-96%. - Continue supplemental O2 as needed. # Diabetes mellitus Type 2, controlled. - Last A1c on 02/03/16 - 6.4. - Will hold metformin (500 mg BID) at this time. - Low dose correctional scale available as needed. - Continue Lyrica 150 mg TID for neuropathic pain. # Prolonged QTc, acute, present on admission. - QTc 505. - Avoid QTc prolonging medications where possible. - replete electrolytes # Peripheral edema in the setting of ascites, chronic, ongoing. - Continue furosemide 20 mg daily with potassium 20 mEq daily. - Monitor fluid status closely and consider increased dosing if patient progresses to a decompensated state. # Hypothyroidism, chronic, presume stable. - Continue levothyroxine 100 mcg daily. # Depression, chronic, presume stable. - Continue fluoxetine 40 mg daily. - Continue hydroxyzine 25 mg TID PRN anxiety. # Morbid obesity, chronic. - BMI 42.0. Dispo: 1-2 days pending clinical improvement Resuscitation Status: CPR: Attempt Resuscitation Time spent 30 min Tavo Gordon Mar 12, 2016 18:14
[2016-03-13 01:11] VITALS: BP 103/67; PULSE 81; RESP 16; O2SAT 96
[2016-03-13] MEDS: Meropenem Inj 2,000 MG in 0.9% Sodium Chloride 100 ML IV SCH ×2 (01:26→08:36)
--- NOTE | 2016-03-13 02:00 | NUR ---
SOB Patient appeared to be sob when dangling from bedside and standing at side of bed. O2 running at 2L NC. Patient stated that she has been sob since the diagnosis of peritonitis. Patient helped back to bed. VSS. Call light within reach. Patient resting.
[2016-03-13 05:34] VITALS: BP 106/70; PULSE 75; RESP 20; O2SAT 95
[2016-03-13 05:36] LABS: Mean Corpuscular Hemoglobin 28.3 pg (27.0-35.0); Mean Corpuscular Volume 92.6 fL (81-100)
[2016-03-13] MEDS: Insulin LISPRO 300 Unit/3 mL Inj SUBQ SCH ×2 (07:55→12:05)
[2016-03-13] MEDS: 0.9% Sodium Chloride 250 ML IV SCH (08:36)
[2016-03-13] MEDS: Filgrastim 480 mCg/1.6 mL Inj SUBQ SCH (08:36)
[2016-03-13] MEDS: Potassium Chloride 20 mEq SR Tablet PO SCH (08:37)
[2016-03-13 09:00] VITALS: BP 116/80; PULSE 85; RESP 20; O2SAT 97
[2016-03-13 09:40] VITALS: PULSE 87
[2016-03-13 10:32] VITALS: PULSE 105
[2016-03-13] MEDS ORDERED: OXYC5TAB72 PO (11:23)
[2016-03-13] MEDS ORDERED: CIPR-232 PO (11:23)
--- NOTE | 2016-03-13 11:28 | PCM.DIMED ---
Discharge Instructions Date of Service Mar 13, 2016 Dates of Hospitalization Mar 09, 2016 at 20:33 Discharge Diagnosis Discharge Diagnosis # Acute Serratia peritonitis, present on admission. ongoing # Possible cellulitis in the left abdomen with approx. 5 cm area of erythema and induration, present on admission. improving # Abdominal ascites secondary to underlying ovarian cancer with Pleurx catheter in place. # Ovarian cancer with evidence of loculated ascites and recent placement of a left peritoneal drain, ongoing. # Leukopenia, acute, present on admission. Resolved after treatment with Neupogen # Hypomagnesemia, acute, present on admission. - Replaced and resolved. # Chronic hypoxic respiratory failure, stable. # Diabetes mellitus Type 2, controlled. # Prolonged QTc, acute, present on admission. # Peripheral edema in the setting of ascites, chronic, ongoing. # Hypothyroidism, chronic, presume stable. # Depression, chronic, presume stable. # Morbid obesity, chronic. - BMI 42.0. Diet Heart Healthy, Diabetic Activity No restrictions Call your provider Fever or Chills, Shortness of breath, Bleeding, Chest pain, Vomitting, Excessive diarrhea Patient Instructions Seek immediate medical attention if any new or worsening signs or symptoms occur. Follow-up plan 1. Followup with primary care provider in 7-10 days 2. Followup with oncology this coming week as previously planned. Follow-up Provider: Heide Lowery MD Provider: Lance Winkler MD, Masoud Mar 13, 2016 11:28
--- NOTE | 2016-03-13 15:38 | NUR ---
Discharge Discharged pt from [facility] room 1018 at 1530 home via [employer]. Called [employer] and provided them with the pt insurance information in order that they bill medicaid. All discharge teaching and instructions done with pt at bedside. Hard copy of RX with pt. IV therapy de-accessed pt IV. All belongings with pt. No items in the safe or pharmacy. Pt to f/u with oncology with already scheduled apts. Pt to make apts to f/u with PCP. Teaching done on keeping pleurx catheter clean and dry and how to use sterile technique when draining catheter. Educated pt on importance of handwashing before touching her abdomen.
--- NOTE | 2016-03-13 19:39 | PCM.DC.MED ---
Discharge Summary Date of Service Mar 13, 2016 Dates of Hospitalization Date of Hospital Admission Mar 09, 2016 at 20:33 Date of Discharge: Mar 13, 2016 Providers: Admitting Physician: Cesar Raines MD Primary Care Physician: Heide Lowery MD Attending Physician: Cesar Raines MD Diagnosis at Time of Discharge Diagnosis at Time of Discharge # Acute Serratia peritonitis, present on admission. ongoing # Possible cellulitis in the left abdomen with approx. 5 cm area of erythema and induration, present on admission. improving # Abdominal ascites secondary to underlying ovarian cancer with Pleurx catheter in place. # Ovarian cancer with evidence of loculated ascites and recent placement of a left peritoneal drain, ongoing. # Leukopenia, acute, present on admission. Resolved after treatment with Neupogen # Hypomagnesemia, acute, present on admission. - Replaced and resolved. # Chronic hypoxic respiratory failure, stable. # Diabetes mellitus Type 2, controlled. # Prolonged QTc, acute, present on admission. # Peripheral edema in the setting of ascites, chronic, ongoing. # Hypothyroidism, chronic, presume stable. # Depression, chronic, presume stable. # Morbid obesity, chronic. - BMI 42.0. Consultations 1. ID 2. Oncology Procedures XRay, CTs & MRIs Chest x-ray IMPRESSION: Bibasilar streaky radiopacities. Differential considerations include atelectasis, aspiration, infection. Dictated by: Khushbu Harmon M.D. on 03/09/2016 at 17:38 Brief History 65 year old female with a history of ovarian cancer with progressive ascites currently undergoing chemo, breast cancer s/p lumpectomy and chemo, DM2, HTN, hypothyroidism, HLP, and depression. She presented to [facility] on 03/09/16with signs and symptoms of recurrent peritonitis. Hospital Course # Acute Serratia peritonitis, present on admission. ongoing - hospitalized in late January 2016 with Group D strep peritonitis. - Possible cellulitis in the left abdomen with approx. 5 cm area of erythema and induration. - appreciate ID consult. will f/u w/ recs - treated with IV Meropenem and PO Cipro per ID recs - Per Dr. Porter: "Once the patient is ready for discharge, she can be discharged on oral Cipro for about a two-week course for this serratia peritonitis." # Abdominal ascites secondary to underlying ovarian CA with PleurX catheter in place. poa. ongoing # Ovarian cancer with evidence of loculated ascites and recent placement of a left peritoneal drain, ongoing. - appreciate Dr. Winkler's consult and input. will f/u w/ recs - BRCA2 positive. - Last chemo 03/04/16 with next dose 03/18/16. # Leukopenia, acute, present on admission. Resolved with Neupogen treatment - Likely secondary to chemotherapy. # Hypomagnesemia, acute, present on admission. - Replaced and resolved. # Chronic hypoxic respiratory failure, stable. - Baseline O2 2L via nasal cannula. - Saturation goals 92-96%. - Continue supplemental O2 as needed. # Diabetes mellitus Type 2, controlled. - Last A1c on 02/03/16 - 6.4. - Will hold metformin (500 mg BID) at this time. - Low dose correctional scale available as needed. - Continue Lyrica 150 mg TID for neuropathic pain. # Prolonged QTc, acute, present on admission. - QTc 505. - Avoid QTc prolonging medications where possible. - replete electrolytes # Peripheral edema in the setting of ascites, chronic, ongoing. - Continue furosemide 20 mg daily with potassium 20 mEq daily. - Monitor fluid status closely and consider increased dosing if patient progresses to a decompensated state. # Hypothyroidism, chronic, presume stable. - Continue levothyroxine 100 mcg daily. # Depression, chronic, presume stable. - Continue fluoxetine 40 mg daily. - Continue hydroxyzine 25 mg TID PRN anxiety. # Morbid obesity, chronic. - BMI 42.0. by day of d/c lungs CTA bilat. abdomen distended but not tender to palpation. pt requesting d/c home noting feeling back to baseline Exam Vital Signs (Last) Date Time Temp Pulse Resp B/P Pulse Ox O2 Delivery O2 Flow Rate FiO2 03/13/16 10:32 105 Nasal Cannula 4.00 03/13/16 09:00 37.1 20 116/80 97 Test 03/09/16 17:15 03/09/16 21:27 03/10/16 05:30 03/12/16 05:03 Lactic Acid Level 1.2mmol/L (0.4-2.0) Total Bilirubin 0.6mg/dL (0.0-1.2) Aspartate Amino Transf (AST/SGOT) 19U/L (0-50) Alanine Aminotransferase (ALT/SGPT) 20U/L (0-32) Alkaline Phosphatase 132U/L (25-165) Troponin T < 0.010ug/L (0.0-0.011) Total Protein 5.3g/dL (6.4-8.4) Albumin 2.4g/dL (3.4-5.0) Lipase 10U/L (13-60) Urine Color Dark yellow (YELLOW) Urine Appearance Clear (CLEAR,HAZY) Urine pH 6.0 (5.0-8.0) Urine Specific [place] 1.025 (1.003-1.035) Urine Protein 30mg/dL (NEG,TRACE) Urine Glucose (UA) Negativemg/dL (NEGATIVE) Urine Ketones Tracemg/dL (NEGATIVE) Urine Occult Blood Negative (NEGATIVE) Urine Nitrite Negative (NEGATIVE) Urine Bilirubin Negative (NEGATIVE) Urine Urobilinogen Normalmg/dL (NORMAL) Urine Leukocyte Esterase Negative (NEGATIVE) Urine RBC 0-2/hpf (0-2) Urine WBC 0-5/hpf (0-5) Urine Epithelial Cells None/hpf (NONE-MOD) Urine Crystals None seen (NONE SEEN) Urine Bacteria Few/hpf (NONE-FEW) Urine Hyaline Casts None/lpf (NONE) Urine Granular Casts None seen (NONE SEEN) Urine Waxy Casts None seen (NONE SEEN) Urine Red Blood Cell Casts None seen (NONE SEEN) Urine White Blood Cell Casts None seen (NONE SEEN) Urine Mucus Present (None Seen) Urine Trichomonas None seen (NONE SEEN) Urine Yeast None (NONE SEEN) Urinalysis Comment None Urine Culture Reflexed Not indicated Phosphorus Level 3.1mg/dL (2.5-4.9) Magnesium Level 2.4mg/dL (1.6-2.6) Neutrophils (%) (Auto) 37% (40-74) Lymphocytes (%) (Auto) 38% (14-46) Monocytes (%) (Auto) 16% (4-12) Eosinophils (%) (Auto) 2% (0-5) Basophils (%) (Auto) 0% (0-3) Band Neutrophils % 4% (1-5) Metamyelocytes % 3% (0-0) Nucleated Red Blood Cells 1/100 WBC (0-24) Test 03/13/16 05:15 White Blood Count 8.9th/mm3 (3.8-10.1) Red Blood Count 3.11mil/mm3 (3.90-5.20) Hemoglobin 8.8g/dL (12.0-15.6) Hematocrit 28.8% (35.0-46.0) Mean Corpuscular Volume 92.6fL (81-100) Mean Corpuscular Hemoglobin 28.3pg (27.0-35.0) Mean Corpuscular Hemoglobin Concent 30.6% (32.0-37.0) Red Cell Distribution Width 20.6% (12.3-15.4) Platelet Count 292bil/L (150-400) Sodium Level 132mEq/L (134-144) Potassium Level 4.1mEq/L (3.5-5.2) Chloride Level 90mEq/L (97-108) Carbon Dioxide Level 34mmol/L (18-29) Blood Urea Nitrogen 13mg/dL (8-27) Creatinine 0.52mg/dL (0.57-1.00) Estimat Glomerular Filtration Rate 171mL/min (>59) Glucose Level 144mg/dL (60-99) Calcium Level 8.5mg/dL (8.5-10.1) Discharge Medications Discharge Medications Aspirin (Aspirin) 81 Mg Tablet 81 MG PO DAILY (Reported) Cholecalciferol (Vitamin D3) (Vitamin D) 1,000 Unit Capsule 2,000 UNIT PO DAILY (Reported) Ciprofloxacin (Cipro) 250 Mg Tablet 750 MG PO BID Prescribed by: BARRY MOY MD Cyanocobalamin/Folic Acid (Vitamin W18-Jqmip Acid Tablet) 1 Each Tablet 1 EACH PO DAILY (Reported) Fluoxetine (Fluoxetine) 40 Mg Capsule 40 MG PO DAILY (Reported) Levothyroxine (Levothyroxine) 100 Mcg Tablet 100 MCG PO DAILY (Reported) Metformin (Metformin) 500 Mg Tablet 500 MG PO BID (Reported) Pregabalin (Lyrica) 150 Mg Capsule 150 MG PO TID (Reported) As needed Albuterol HFA (Proair HFA) 8.5 Gm Hfa.aer.ad 2 PUFFS IH Q4 PRN PRN For Shortness of Breath (Reported) Clotrimazole (Athlete's Foot) 1 % Cream..g. 1 APPLIC TOPICAL TID PRN PRN dry cracking skin on feet (Reported) Diclofenac Sodium (Diclofenac Sodium) 1 % Gel..gram. 1 APPLIC TOP PRN PRN PRN KNEE PAIN (Reported) Doxepin (Doxepin) 50 Mg Capsule 2 CAP PO HS PRN PRN For Insomnia (Reported) Ondansetron ODT (Ondansetron ODT) 4 Mg Tab.rapdis 4 MG PO q8hr PRN PRN For Nausea (Reported) hydrOXYzine Hcl (HydrOXYzine Hcl) 25 Mg Tablet 25 MG PO TID PRN PRN For Anxiety or Agitation (Reported) oxyCODONE (oxyCODONE) 5 Mg Tablet 5-10 MG PO Q4H PRN PRN For Moderate Pain Prescribed by: BARRY MOY MD Followup Plan Disposition: Home Follow-up plan 1. Followup with primary care provider in 7-10 days 2. Followup with oncology this coming week as previously planned. Discharge Diet: Heart Healthy, Diabetic Discharge Activity: No restrictions Patient Instructions Seek immediate medical attention if any new or worsening signs or symptoms occur. Follow-up Provider: Heide Lowery MD Provider: Lance Winkler MD Time spent 35 min copies to: Lance Winkler MD; Heide Lowery MD, Masoud Mar 13, 2016 19:39
== END 2016-03-13 15:30 | disposition home health service (06) | DRG 248 ==
LOC: SED 16:30 → MOC 20:33 → OSC 03-12 06:09
PROVIDERS: ADMIT Hospitalist; ATTEND Hospitalist
DX: K65.8 Other peritonitis (principal); C79.60 Secondary malignant neoplasm of unspecified ovary; J96.11 Chronic respiratory failure with hypoxia; R18.0 Malignant ascites; Z68.41 Body mass index [BMI] 40.0-44.9, adult; L03.311 Cellulitis of abdominal wall; B96.89 Other specified bacterial agents as the cause of diseases classified elsewhere; I10 Essential (primary) hypertension; Z79.4 Long term (current) use of insulin; Z87.891 Personal history of nicotine dependence; E03.9 Hypothyroidism, unspecified; Z85.3 Personal history of malignant neoplasm of breast; D70.1 Agranulocytosis secondary to cancer chemotherapy; E66.01 Morbid (severe) obesity due to excess calories; E11.42 Type 2 diabetes mellitus with diabetic polyneuropathy

== ENCOUNTER 2016-04-01 10:06 | Inpatient (IN) | payer OTHER, MEDICAID ==
[~2016-04-01] VITALS: Ht 160 cm; Wt 113.6 kg
[~2016-04-01 10:06] MED LIST changes: +CIPR-232 PO; -FUR20 PO; +OXYC5TAB72 PO; -POTA20TA16 PO
[2016-04-01 10:11] VITALS: BP 116/77; PULSE 91; RESP 18; O2SAT 96
--- NOTE | 2016-04-01 10:27 | ED.REPORT ---
HPI-General Illness Date of Service Apr 01, 2016 ED Provider: Gerardo Calle MD 65 year old female with metastatic ovarian cancer and a history of breast cancer presents to the ER sent from the cancer center due to abdominal pain with concern for an infected hernia. She also reports pain and redness around her left peritoneal drain site. Associated symptom of dry cough. Patient denies fever, vomiting, and diarrhea. Last chemotherapy treatment was a week ago. Nursing Notes Stated Complaint: POSSIBLE INFECTION/SENT FROM CANCER CARE Chief Complaint: Female Abdominal Pain Nursing Notes Reviewed: Yes Allergies: Coded Allergies: hydrocodone (Verified Allergy, Severe, Rash,Itching,, 11/27/15) cephalexin (Verified Allergy, Intermediate, itching, vomiting, 11/27/15) Scheduled Aspirin (Aspirin) 81 Mg Tablet 81 MG PO DAILY Cholecalciferol (Vitamin D3) (Vitamin D) 1,000 Unit Capsule 2,000 UNIT PO DAILY Ciprofloxacin (Cipro) 250 Mg Tablet 750 MG PO BID Cyanocobalamin/Folic Acid (Vitamin O82-Cuudm Acid Tablet) 1 Each Tablet 1 EACH PO DAILY Fluoxetine (Fluoxetine) 40 Mg Capsule 40 MG PO DAILY Levothyroxine (Levothyroxine) 100 Mcg Tablet 100 MCG PO DAILY Metformin (Metformin) 500 Mg Tablet 500 MG PO BID Pregabalin (Lyrica) 150 Mg Capsule 150 MG PO TID Scheduled PRN Albuterol HFA (Proair HFA) 8.5 Gm Hfa.aer.ad 2 PUFFS IH Q4 PRN PRN For Shortness of Breath Clotrimazole (Athlete's Foot) 1 % Cream..g. 1 APPLIC TOPICAL TID PRN PRN dry cracking skin on feet Diclofenac Sodium (Diclofenac Sodium) 1 % Gel..gram. 1 APPLIC TOP PRN PRN PRN KNEE PAIN Doxepin (Doxepin) 50 Mg Capsule 2 CAP PO HS PRN PRN For Insomnia Ondansetron ODT (Ondansetron ODT) 4 Mg Tab.rapdis 4 MG PO q8hr PRN PRN For Nausea hydrOXYzine Hcl (HydrOXYzine Hcl) 25 Mg Tablet 25 MG PO TID PRN PRN For Anxiety or Agitation oxyCODONE (oxyCODONE) 5 Mg Tablet 5-10 MG PO Q4H PRN PRN For Moderate Pain General Time Seen by MD: 10:24 Chief Complaint Abdominal pain Hx Obtained From: Patient Arrived By: Walk-in Sudden in Onset?: No Onset Occurred: Onset unknown Location: : Abdomen Quality: Painful Severity: Current: Moderate Severity: Maximum: Moderate Associated with: Reports: Cough, Denies: Fever, Nausea, Numb extremities, Vomiting Context Related History: Reports Cancer Past Medical History Past Medical History Notes: Oncologist: Cathi Past Medical History Metastatic ovarian cancer HTN DM - metformin (with neuropathy) Breast CA Fibromyalgia Hernia Anxiety Depression Past Surgical History Port-a-cath Lumpectomy Lymph nodes Thyroid Reports: Appendectomy, Hysterectomy Family History CAD - father's side Smoking History Former Smoker Social History Alcohol Use: "Social" Drug Use: THC Ambulatory Status Wheelchair Review of Systems Full Review of Systems Constitutional: Denies: Chills, Fever Respiratory: Reports: Non-productive cough, Denies: Shortness of breath GI: Reports: Abdominal pain, Denies: Diarrhea, Nausea, Vomiting Complete sys rev & neg: except as marked. Physical Exam Vital Signs Vital Signs Date Time Temp Pulse Resp B/P Pulse Ox O2 Delivery O2 Flow Rate FiO2 04/01/16 10:11 36.4 91 18 116/77 96 Room Air Initial VS: Reviewed Head / Eyes: Atraumatic, Normocephalic Neck: Supple, Non-tender, Full range of motion Respiratory: Breath sounds normal, Clear to auscultation, No respiratory distress Cardiovascular: Regular rate & rhythm, Heart sounds normal, Intact distal pulses Extremities: Vascular intact, Neuro intact, No swelling, No tenderness Skin: Warm, Dry, No cyanosis Neurologic: Alert, Oriented, Nonfocal Psychiatric: Mood/affect normal, Behavior normal, Normal thought content General/Constitutional: Awake, Alert, Well developed Appearance / Presentation: Positive: Cachectic, Obese Respiratory / Chest: Breath sounds NL, No respiratory distress, No rales, No rhonchi, No wheezing Cardiovascular: Heart rate NL, Regular rhythm, Heart sounds NL, Cap refill not delayed, Peripheral circulation NL Lower Ext Edema: Positive: Bilateral 3+ Abdomen: No guarding, No rebound Organomegaly / Mass / Hernia: Positive: Hernia is erythematous, Hernia is tender, Hernia ventral (VERY LARGE, Right side.) Area of erythema and induration surrounding Left abdominal pleural drain, without fluctuance. Interpretation & Diagnostics Lab Results Interpretation Result Diagram: 04/01/16 1056 04/01/16 1056 Test 04/01/16 10:56 04/01/16 13:58 White Blood Count 6.8th/mm3 (3.8-10.1) Red Blood Count 2.71mil/mm3 (3.90-5.20) Hemoglobin 7.4g/dL (12.0-15.6) Hematocrit 25.3% (35.0-46.0) Mean Corpuscular Volume 93.4fL (81-100) Mean Corpuscular Hemoglobin 27.3pg (27.0-35.0) Mean Corpuscular Hemoglobin Concent 29.2% (32.0-37.0) Red Cell Distribution Width 21.7% (12.3-15.4) Platelet Count 383bil/L (150-400) Neutrophils (%) (Auto) 50% (40-74) Lymphocytes (%) (Auto) 27% (14-46) Monocytes (%) (Auto) 17% (4-12) Eosinophils (%) (Auto) 1% (0-5) Basophils (%) (Auto) 1% (0-3) Band Neutrophils % 2% (1-5) Metamyelocytes % 1% (0-0) Myelocytes % 1% (0-0) Hematology Comments Rbc Sodium Level 136mEq/L (134-144) Potassium Level 3.4mEq/L (3.5-5.2) Chloride Level 96mEq/L (97-108) Carbon Dioxide Level 30mmol/L (18-29) Blood Urea Nitrogen 11mg/dL (8-27) Creatinine 0.68mg/dL (0.57-1.00) Estimat Glomerular Filtration Rate 125mL/min (>59) Glucose Level 123mg/dL (60-99) Lactic Acid Level 1.7mmol/L (0.4-2.0) Calcium Level 8.5mg/dL (8.5-10.1) Magnesium Level 1.3mg/dL (1.6-2.6) Total Bilirubin 0.3mg/dL (0.0-1.2) Aspartate Amino Transf (AST/SGOT) 19U/L (0-50) Alanine Aminotransferase (ALT/SGPT) 18U/L (0-32) Alkaline Phosphatase 87U/L (25-165) Troponin T 0.010ug/L (0.0-0.011) Total Protein 6.0g/dL (6.4-8.4) Albumin 2.3g/dL (3.4-5.0) Urine Color Yellow (YELLOW) Urine Appearance Hazy (CLEAR,HAZY) Urine pH 6.0 (5.0-8.0) Urine Specific [place] 1.020 (1.003-1.035) Urine Protein Tracemg/dL (NEG,TRACE) Urine Glucose (UA) Negativemg/dL (NEGATIVE) Urine Ketones Negativemg/dL (NEGATIVE) Urine Occult Blood Negative (NEGATIVE) Urine Nitrite Negative (NEGATIVE) Urine Bilirubin Negative (NEGATIVE) Urine Urobilinogen Normalmg/dL (NORMAL) Urine Leukocyte Esterase Negative (NEGATIVE) Urine RBC 0-2/hpf (0-2) Urine WBC 0-5/hpf (0-5) Urine Epithelial Cells Occasional/hpf (NONE-MOD) Urine Crystals None seen (NONE SEEN) Urine Bacteria Few/hpf (NONE-FEW) Urine Hyaline Casts None/lpf (NONE) Urine Granular Casts Occasional (NONE SEEN) Urine Waxy Casts None seen (NONE SEEN) Urine Red Blood Cell Casts None seen (NONE SEEN) Urine White Blood Cell Casts None seen (NONE SEEN) Urine Mucus None seen (None Seen) Urine Trichomonas None seen (NONE SEEN) Urine Yeast Few (NONE SEEN) Urinalysis Comment None Urine Culture Reflexed Not indicated ECG Interpretation ECG Interpretation: Sinus rhythm, rate 85 RBBB Time: 11:18 Interpreted by: ED physician X-Ray Chest Interpretation Chest Xray Interpretation: IMPRESSION: No acute cardiopulmonary disease. Bibasilar scars/atelectasis. Dictated by: Logan Strong M.D. on 04/01/2016 at 11:56 Approved by: Logan Strong M.D. on 04/01/2016 at 11:57 View: Portable, 1 view Interpretation / Wet Read by: Interpret - Radiologist Re-Eval/Medical Decision Source of Hx: Old records Time of Eval: 10:39 Re-Evaluation/Progress Note: Discussed need for admission. Patient is amenable to the plan. Time of Eval: 13:44 Re-Evaluation/Progress Note: Updated patient on the plan of care. Consultation #1: Referral / Consult Name: Max Kuhn MD Consulted With: Surgeon Call Returned at: 13:53 Emissions Technician: Will see patient Note: Discussed patient case with Dr. Kuhn, Surgeon, who is now present in the department. He suggests empiric antibiotics and reassessment after 24-48 hours if there is no improvement regarding the need for drain removal. Consultation #2: Referral / Consult Name: Nell Rodriguez MD Consulted With: Hospitalist Call Returned at: 14:19 Emissions Technician: Agrees with eval, Agrees with plan, Accepts admit Counseled Regarding: Diagnosis, Lab results, Need for admission Discharge & Departure Primary Impression: Cellulitis Site of cellulitis: trunk Site of cellulitis of trunk: abdominal wall Qualified Code: L03.311 - Cellulitis of abdominal wall Disposition: ADMITTED TO HOSPITAL Discharge Condition All VS Reviewed: Yes Condition: Stable Referrals: Heide Lowery MD (PCP) Evy Attestation Portions of this note were transcribed by Yaron Dickerson. I, Dr. Calle, personally performed the history, physical exam and medical decision-making; I reviewed and confirmed the accuracy of the information in the transcribed note. Signed by: Evy Yoon, 04/01/2016 and 14:20 copies to: Heide Lowery MD, Kirk H MD Apr 01, 2016 10:27 YARON DICKERSON Apr 01, 2016 10:39
[2016-04-01] MEDS ORDERED: Vancomycin Dose per Pharmacist XX ONE ×3 (11:00→15:00)
[2016-04-01] MEDS ORDERED: Clindamycin Inj 900 MG in IV Premix 1 EACH IV ONE (11:00)
[2016-04-01] MEDS ORDERED: Meropenem Inj 1,000 MG in 0.9% Sodium Chloride 100 ML IV ONE (11:00)
[2016-04-01] MEDS ORDERED: Vancomycin Inj 2,000 MG in 0.9% Sodium Chloride 500 ML IV ONE (11:15)
--- NOTE | 2016-04-01 11:17 | PCM.PHAPRO ---
Progress Patient is a 65 y.o. female receiving vancomycin for sepsis. Concurrent abx include:meropenum,clindamycin. Based on patient parameters vancomycin will receive a one-time dose of 2000mg Please reconsult pharmacy if the patient is admitted and you wish for vancomycin therapy to continue. Thank you for the consult in the care of this patient. RTM PharmD Jerome Bustillos Apr 01, 2016 11:17
--- NOTE | 2016-04-01 11:58 | DRSVH ---
PROCEDURE: X-RAY CHEST ONE VIEW, PORTABLE ([id number]) INDICATIONS: cough TECHNIQUE: One view of the chest was acquired. COMPARISON: [facility], CR, XR CHEST 1VW (PORTABLE), 03/09/2016, 16:53. FINDINGS: Surgical changes and devices: There is a Port-A-Cath on the right with taping of the SVC. Surgical c lips in the left lower neck. Lungs and pleura: Bibasilar scars/atelectasis are unchanged. Lungs are otherwise clear. No pleural effusions or pneumothorax. Mediastinum: Mediastinal contours appear normal. Heart size is normal. Bones and chest wall: No suspicious bony lesions. Overlying soft tissues appear unremarkable. IMPRESSION: No acute cardiopulmonary disease. Bibasilar scars/atelectasis. Dictated by: Logan Strong M.D. on 04/01/2016 at 11:56 Approved by: Logan Strong M.D. on 04/01/2016 at 11:57
[2016-04-01 12:00] LABS: Mean Corpuscular Hemoglobin 27.3 pg (27.0-35.0); Mean Corpuscular Volume 93.4 fL (81-100); Platelet Count 383 bil/L (150-400)
[2016-04-01 12:15] LABS: TROPONIN T 0.01 ug/L (0.0-0.011)
[2016-04-01 12:22] LABS: BASOPHILS % (AUTO) 1 % (0-3); EOSINOPHILS % (AUTO) 1 % (0-5); MONOCYTES % (AUTO) 17 % (4-12); NEUTROPHILS % (AUTO) 50 % (40-74)
[2016-04-01 12:26] LABS: Magnesium 1.3 mg/dL (1.6-2.6)
[2016-04-01 14:15] LABS: APPEARANCE,URINE HAZY (CLEAR,HAZY); COLOR,URINE YELLOW (YELLOW); OCCULT BLOOD,URINE NEGATIVE (NEGATIVE); UROBILINOGEN,URINE NORMAL (NORMAL)
[2016-04-01 14:22] LABS: YEAST,URINE FEW (NONE SEEN)
[2016-04-01] MEDS ORDERED: Ondansetron 2 mg/mL 2 mL Inj IVPUSH PRN (14:30)
[2016-04-01] MEDS ORDERED: Alum-Mag Hydrox-Simeth 30 mL Suspension PO PRN (14:30)
[2016-04-01] MEDS ORDERED: CIPR-198 PO (14:53)
[2016-04-01] MEDS ORDERED: OXYC10TA8 PO (14:53)
[2016-04-01] MEDS ORDERED: IRON150C6 PO (14:56)
[2016-04-01] MEDS ORDERED: 0.9% Sodium Chloride 1,000 ML IV SCH (14:56)
--- NOTE | 2016-04-01 14:56 | PCM.HPMED ---
Subjective Date of Service Apr 01, 2016 Primary Provider: Admitting Physician: Primary Care Physician: Heide Lowery MD Attending Physician: Chief Complaint: Skin redness pain by peritoneal drain and right abdomen HISTORY was OBTAINED FROM PATIENT / [facility] NOTES History of present illness 65-year-old female, last discharged March 13 2016 peritonitis/5 cm cellulitis /chemotherapy related leukopenia/low magnesium treated with Neupogen/meropenem/ Cipro per Dr. Porter, discharged with Cipro 2 weeks. Patient was sent by cancer Center complaining of pain and redness around left peritoneal drain- recurrent and right abdomen skin-new onset No fever no diarrhea no vomiting. no pluerex output for 2 days, pt suspected obsturction, increased fluid in legs , new chest congestion/cough since yesterday much sick contacts, hasn't been using inhsaler/neb - some confusion w/ O2 use can be in conjunction w/ inhaler/ neb use In the ER 116/77, 96% room air 36.4 Celsius tolerated lunch, Vanco Clinda meropenem 03/17/2016, Dr. POP note-Clinical biochemical response for recurrent ovarian carcinoma carboplatin 03/17/2016, paclitaxel on February 24 2016 Review of Systems - none of the following - acid reflux / / bleeding/bruising / leg swelling / change in voiding / yeast infections / rash ambulates Dry cough FAMILY HX breast cancer/CAD SOCIAL HX former smoker, social EtOH MEDICATIONS 1. Ciprofloxacin 750 mg b.i.d. 2. Albuterol HFA. 3. Aspirin 81 mg. 4. Diclofenac gel. 5. Doxepin two caps h.s. 50 mg each. 6. Fluoxetine 40 mg. 7. Pregabalin 150 mg t.i.d. 8. Hydroxyzine 25 mg t.i.d. 9. Oxycodone 5-10 mg q.4 h. p.r.n. pain so she is back on opiates although the above statement indicated she had stopped using them. 10. Ondansetron 4 mg q.8 h. hours p.r.n. nausea. 11. Levothyroxine 100 mcg. 12. Metformin 500 mg b.i.d. 13. Clotrimazole cream. 14. Cholecalciferol 2000 units daily. 15. Cyanocobalamin. Past Medical/Surgical HX PleurX catheter Dr. Harmon in the left lower quadrant on January 12, 2016 Loculated ascites, Bacterial enterococcus peritonitis, daptomycin per Dr. Porter January 2016 // Jenny almendarez 2016 Stage IIIc ovarian cancer, breast cancer 2006 treated with radiation/lobectomy, BRAC1 positive Chronic hypoxic respiratory failure, home O2 2 L Community-acquired pneumonia with respiratory failure, November 2015. Diabetes type 2. Neuropathic pain Hypothyroidism. chornic pain Hyperlipidemia. Hypertension. Obesity. Prolonged QTC 505 right bundle branch block Depression Chronic peripheral edema Port-A-Cath Thyroid resection/appendectomy/hysterectomy Right abdominal ventral hernia due to prior peritoneal drain Allergies Coded Allergies: hydrocodone (Verified Allergy, Severe, Rash,Itching, n/v, 04/01/16) cephalexin (Verified Allergy, Intermediate, itching, vomiting, 04/01/16) PMH Social History Hx Alcohol Use: Yes (occasional drink now for special occasions) Hx Substance Use: No Hx Tobacco Use: Yes (patient smoked from the ages of approximately [age] 1-1/2 packs per day) Smoking Status: Former Smoker Exam Vital Signs Vital Sign - Last Date Time Temp Pulse Resp B/P Pulse Ox O2 Delivery O2 Flow Rate FiO2 04/01/16 10:11 36.4 91 18 116/77 96 Room Air Lab and Diagnostics Labs Exam on admission 2L NC SBP 90s NAD A and O x 3 mood affect WNL NC/AT no icterus no injected eyes EOMI PERRL /no pharyngeal lesions/ no oral lesions / hearing intact Supple neck coarse bilateral equal chest rise / no accessory muscle use / speaks in full sentences / no rrw RRR S1 S2 / no mrg / 2+ radial pulses Soft nt nd + BS no hepatosplenomegaly severe edema legs no cyanosis no ecchymosis of lower extremities No rash / no jaundice SAMAYOA Peritoneal drain Left Port-A-Cath right 7cm patch Left upper abdomen w/ open areas pain erythema 7 cm patch right lower abdomen w/ open areaspain erythema EKG 85 sinus rhythm right bundle branch block Trop 0.01 at 11 AM procalcitonin lactic acid 1.7 UA negative nitrite negative leukocyte esterase positive urine yeast positive epithelials Blood culture pending LFT normal, albumin 2.3 Imaging PROCEDURE: X-RAY CHEST ONE VIEW, PORTABLE ([id number]) INDICATIONS: cough TECHNIQUE: One view of the chest was acquired. COMPARISON: [facility], CR, XR CHEST 1VW (PORTABLE), 03/09/2016, 16: 53. FINDINGS: Surgical changes and devices: There is a Port-A-Cath on the right with taping of the SVC. Surgical clips in the left lower neck. Lungs and pleura: Bibasilar scars/atelectasis are unchanged. Lungs are otherwise clear. No pleural effusions or pneumothorax. Mediastinum: Mediastinal contours appear normal. Heart size is normal. Bones and chest wall: No suspicious bony lesions. Overlying soft tissues appear unremarkable. IMPRESSION: No acute cardiopulmonary disease. Bibasilar scars/atelectasis. Date of Service: 02/03/16 1501 PROCEDURE: CT ABDOMEN AND PELVIS WITH CONTRAST ([id number]) INDICATIONS: abd pain TECHNIQUE: After the administration of intravenous contrast, 5 mm thick sections acquired from the diaphragm to the symphysis. 5 mm coronal and sagittal reformats were acquired. For radiation dose reduction, the following was used: automated exposure control, adjustment of mA and/or kV according to patient size. COMPARISON: [facility], CT, CT CHEST ABD PELVIS W CON, 07/17/2015, 16:24. [facility], CT, CT CHEST ABD PELVIS W CON, 01/10/2016, 12: 28. [facility], CT, CT ABD PELVIS W CON, 11/24/2015, 16:50. FINDINGS: Image quality: Excellent. ABDOMEN: Lung bases: There is a small low density right pleural effusion and right basilar compressive atelectasis. Solid organs: Liver and spleen are normal in size and overall enhancement. The cystic lesion within the caudate head is unchanged when compared with the study dated 01/10/16. There is a 10 mm diameter hypodense hepatic lesion within hepatic segment II which is new when compared with the prior study and is suspicious for new metastatic lesion. Gallbladder is contracted. Biliary system is non dilated. Pancreas is atrophic. No right-sided adrenal nodules. Left adrenal mass lesion is unchanged. Kidneys demonstrate normal size and enhancement, without hydronephrosis. Peritoneum and bowel: Bowel loops demonstrate normal wall thickness and caliber. There is a large amount of low density free fluid throughout the abdomen and pelvis. There is rim enhancement and multiple loculations within this fluid collection. The extensive rim enhancement appears increased when compared with the study dated 01/10/16. A there is moderate fat stranding throughout the mesentery is well increased in extent when compared with the prior study. A peritoneal Pleurx catheter is present within the lower midabdomen. Nodes and vessels: No retroperitoneal or mesenteric adenopathy by size criteria. Aorta and inferior vena cava are normal in size. There are scattered atheromatous calcifications throughout the aorta and iliac arteries bilaterally. Miscellaneous: No ventral hernias. PELVIS: Genitourinary: Bladder wall thickness is normal. Miscellaneous: No inguinal hernias or adenopathy. Bones: No suspicious bony lesions. No vertebral body compression fractures. IMPRESSION: 1. Small right low density pleural effusion and compressive atelectasis. 2. Large multiloculated rim-enhancing fluid collection within the abdomen. Although this finding may be related to malignant ascites and peritoneal carcinomatosis, there is increased rim enhancement when compared with the study dated 01/10/16. This finding in combination with the new Pleurx catheter raises the suspicion for bacterial peritonitis. Sampling of the ascites is recommended for culture and Gram stain. This finding was discussed with Dr. Wright at 3:45 PM on 02/03/16. 3. Finding suspicious for a new 10 mm in diameter hepatic metastasis. Result Diagram: 04/01/16 1056 04/01/16 1056 Assessment & Plan Active issues and reason for admission Cellulitis right abdominal wall and left abdominal wall inferior to intraperitoneal drain for metastatic ascites from ovarian cancer, AND bronchitis , w/ bandemia -- Vanco Clinda meropenem in ER, continue Vanco meropenem for now // Lauter recommends Abx management -- pending MRSA screen, pending blood culture, pending Dr. Porter, finished cipro 03/27/2015 from serratia peritonitis admission --diluadid and home pain oral meds --sputum cx/flu pcr pending // nebs Normocytic anemia, recurrent 2 months with mild hypotension --transfuse 1 U RBC, until then albumin now Mild hyponatremia/recurrent low magnesium -- Replete magnesium groin yeast --nystatin --consider UA repeat for yeast likely skin, holding azole due to known prolonged qT hx Chronic issues known prior to admission, present on admission PleurX catheter Dr. Harmon in the left lower quadrant on January 12, 2016 Loculated ascites, Bacterial enterococcus peritonitis, daptomycin per Dr. Porter January 2016 // Jenny almendarez 2016 Stage IIIc ovarian cancer, breast cancer 2006 treated with radiation/lobectomy, BRAC1 positive Chronic hypoxic respiratory failure, home O2 2 L Diabetes type 2. Neuropathic pain Hypothyroidism. Chronic pain, neuropathic in nature, previously opiate dependent, hyperlipidemia. Hypertension. Obesity. Prolonged QTC 505 right bundle branch block Depression Chronic peripheral edema Port-A-Cath Right abdominal ventral hernia due to prior peritoneal drain Resume home medications except metformin Diet DM/sliding scale insulin DVT prophylaxis lovenox held to bialteral cellulitis of abdomen // scd as tolerated // ambulate Code full Disposition inpatient Assessment and plan were discussed with patient Nell Rodriguez MD Apr 01, 2016 14:56
[2016-04-01] MEDS ORDERED: ATOR40TA69 PO (14:59)
[2016-04-01] MEDS ORDERED: Glucose 40% Oral Gel 15 Gm Tube PO PRN (15:00)
--- NOTE | 2016-04-01 15:07 | NUR ---
Admit nurse note Partial admission assessment completed in the ER based on pt. report. Pt. states she was referred here by [facility] prior to chemo "because my wbc count was down and something else was down and so they sent me here instead. I didn't want to come here, I wanted to do chemo first. They thought it was really important that I was here. Pt. is tired and c/o chronic R abdominal pain 09/23. notified. Med rec completed per erx and pt. recall. Advance directives verified as in EHR. Allergies verified and sticker placed on nameband. Pt. is high risk for sleep apnea and protocol will be initiated upon arrival to unit. Pr. oriented to call ware and fall precautions. Walker at bedside. Addendum: 04/01/16 at 1519 by ZAHRA MAIN RN Report given to Marilyn Casarez.
[2016-04-01] MEDS ORDERED: Magnesium Sulf 4 Gm/100 mL H2O 4 GM in IV Premix 1 EACH IV ONE (15:10)
[2016-04-01] MEDS ORDERED: Albuterol HFA 60 Puff 8 Gm Inhaler INHALATION PRN (15:10)
--- NOTE | 2016-04-01 15:12 | NUR ---
Verbal instructions Pt. states she has difficulty reading and would prefer both written and verbal instructions for better comprehension./
[2016-04-01] MEDS ORDERED: Albuterol 2.5 mg/3 mL Inhalation Solution NEB PRN (15:50)
--- NOTE | 2016-04-01 15:55 | DRSVH ---
PROCEDURE: X-RAY CATHETER PATENCY STUDY ([id number]) INDICATIONS: catheter blocked? TECHNIQUE: Iodinated contrast was injected through the patient's existing peritoneal catheter, with real-time fluoroscopy performed. COMPARISON: [facility], CT, CT ABD PELVIS W CON, 02/03/2016, 15:12. [facility], XA, PLEURAL CATH PLACEMENT (P), 01/12/2016, 10:58. FINDINGS: Isovue 300 was injected via the peritoneal catheter which demonstrates patency and there is free spillage of contrast media into the peritoneum along multiple side ports as well as the end of the catheter. IMPRESSION: Patent peritoneal catheter. Dictated by: Cedric GLORIA Interpreted: Logan Strong MD on 04/01/2016 at 15:53 Transcribed by: SHERRY on 04/01/2016 at 15:54 Approved by: Logan Strong M.D. on 04/02/2016 at 17:24
--- NOTE | 2016-04-01 16:24 | PCM.PHAPRO ---
Progress Vancomycin Management by Pharmacy: -Vancomycin dosing for 65yo female with cellulitis inferior to intraperitoneal drain for metastatic ascites from ovarian ca -Loading dose of 2gm was sent to ED and infused around 1330 today -concurrent antibiotics: Meropenem 1gm iv [id number] and cleared to be given by ID Dr. Porter -wbc 6.8 with bandemia, creatinine 0.68 and est clearance ~88ml/min, lactic acid 1.7, blood cultures pending -Plan: will continue with maintenance dose of Vancomycin 1.25gm iv [id number] ( next at 0400 on 04/02) trough level is scheduled to be drawn prior to 4th dose (at 0330 on 04/03) serum creatinine is on order for the next 2 days to monitor renal function Danuta Arana [facility] Apr 01, 2016 16:24
[2016-04-01] MEDS ORDERED: Meropenem Inj 1,000 MG in IV Premix 1 EACH IV SCH (16:30)
[2016-04-01] MEDS: Albuterol-Ipratropium 3 mL Inhalation Solution NEB SCH ×2 (16:30→20:30)
[2016-04-01] MEDS: Sodium Chloride LOK Flush 10 mL Syringe IVFLUSH SCH (16:30)
[2016-04-01] MEDS ORDERED: Furosemide 10 mg/mL 2 mL Inj IV ONE (16:35)
--- NOTE | 2016-04-01 16:45 | NUR ---
Admin Pt comes from ER on bed. Portacath accessed and in use. Pt A&OX4, Denies CP and or nausea. States that she is SOB all of the time but it has increased in that last few days. 2L NC supplemental oxygen baseline for pt. Left upper ABD drain with dressing slowly leaking Serous fluids and open ulcerations/sores just below drain dressing. ABD largely distended with palpable masses and tender on palpation. Hernia on lower right ABD wall with open weeping sore near. Bilateral LE extreme edema down to feet. Bilateral generalized neuropathy in fingers and feet. Care continues.
[2016-04-01 17:05] VITALS: BP 100/65; PULSE 91; RESP 22; O2SAT 97
[2016-04-01] MEDS: Insulin LISPRO 300 Unit/3 mL Inj SUBQ SCH ×2 (17:30→23:30)
[2016-04-01] MEDS ORDERED: HepLOK Flush 100 unit/mL 5 mL Inj IVFLUSH PRN (19:35)
[2016-04-01] MEDS ORDERED: Sodium Chloride LOK Flush 10 mL Syringe IVFLUSH PRN ×2 (19:35)
[2016-04-01 19:56] VITALS: BP 106/75; PULSE 90; RESP 20; O2SAT 97
[2016-04-01 21:31] VITALS: BP 111/72; PULSE 86; RESP 16
[2016-04-01] MEDS: Nystatin 100,000 Unit/Gm 15 Gm Powder TOPICAL SCH (21:36)
[2016-04-01 22:20] VITALS: BP 107/71; PULSE 86; RESP 16
[2016-04-02] VITALS (10 sets, daily range): BP systolic 103–131; BP diastolic 66–85; PULSE 81–94; RESP 16–22; O2SAT 91–96
[2016-04-02] MEDS: Albuterol-Ipratropium 3 mL Inhalation Solution NEB SCH ×6 (00:30→19:47)
[2016-04-02] MEDS ORDERED: Furosemide 10 mg/mL 2 mL Inj IV ONE (00:45)
[2016-04-02] MEDS: Meropenem 1 Gm/100 mL NS Minibag Plus IV SCH ×8 (00:56→20:19)
[2016-04-02] MEDS: 0.9% Sodium Chloride 250 ML IV SCH ×2 (00:57→23:05)
[2016-04-02] MEDS: Sodium Chloride LOK Flush 10 mL Syringe IVFLUSH SCH ×4 (00:58→23:06)
[2016-04-02 01:56] LABS: Mean Corpuscular Hemoglobin 27.3 pg (27.0-35.0); Mean Corpuscular Volume 92.6 fL (81-100); Platelet Count 391 bil/L (150-400)
[2016-04-02 02:35] LABS: Magnesium 1.3 mg/dL (1.6-2.6)
[2016-04-02 03:26] LABS: BASOPHILS % (AUTO) 0 % (0-3); EOSINOPHILS % (AUTO) 1 % (0-5); MONOCYTES % (AUTO) 13 % (4-12); NEUTROPHILS % (AUTO) 43 % (40-74)
[2016-04-02] MEDS ORDERED: Mag Sulf 4 Gm/100 mL IV Premix (Mag < 1.6 & Creat < 2) IV ONE (04:15)
[2016-04-02] MEDS: Vancomycin Inj 1,250 MG in 0.9% Sodium Chloride 250 ML IV SCH ×2 (04:15→16:31)
[2016-04-02] MEDS ORDERED: 0.9% Sodium Chloride 100 ML ONE (04:25)
--- NOTE | 2016-04-02 05:07 | NUR ---
RBCs / infusions Received one unit RBC without incident. Post transfusion labs indicate need for Mag replacement, need to obtain tele monitoring for this infusion; will start as soon as tele is initiated. Antibiotics infused through night. Pt continues to require O2 at baseline 2 L, SOB with exertion. Able to safely move self to BSC, bed alarm engaged for safety. Pleurex drain in L abdomen appears to have reddened, inflammed area directly in line below insertion; mild drainage to dressing, will defer to wound care in am to change specialized dressing. Hourly rounding ongoing.
[2016-04-02] MEDS: Insulin LISPRO 300 Unit/3 mL Inj SUBQ SCH ×4 (08:00→23:05)
[2016-04-02] MEDS: FOLIC ACID PO SCH (08:27)
[2016-04-02] MEDS: Nystatin 100,000 Unit/Gm 15 Gm Powder TOPICAL SCH ×2 (08:27→20:21)
[2016-04-02] MEDS: CYANOCOBALAMIN PO SCH (08:27)
[2016-04-02] MEDS: POLYSACCHARIDE IRON COMPLEX 150 MG PO SCH (08:27)
--- NOTE | 2016-04-02 16:38 | NUR ---
Social Work Screen Note: Patient is a 65 year old female admitted on 04/01/16 for cellulitis. Patient payer as PW. [facility] Medicaid secondary. Patient states residing home alone in [facility]. Patient states being current with oncologist MD Goncalves whom she sees every for chemo. Patient states having walker and 02 at home. 02 provider as Tiffany. Patient states being current with caregiver support via [facility]. Patient [facility] worker is Kathleen Eugene, F. [phone]. Patient current with [facility] for caregiver support on . Patient has 16/ week. Patient caregiver also transports patient to and from MD appointments to MD Clay. SW to contact [facility] at discharge to ensure caregiver support at discharge. Patient also current with [facility] and services to resume at discharge. Access provided. Patient also current with Cintia Ibanez, . SW to follow. PLAN: Home with continued caregiver support via [facility]. Home 02 and walker at home. Patient current with [facility] and to resume services at discharge. Access provided. Helga DE LA GARZA
--- NOTE | 2016-04-02 17:28 | PCM.PNMED ---
Subjective Date of Service Apr 02, 2016 Subjective Continues to have pain and discharge from 2 areas of cellulitis. Pleurex catheter insertion site also leaking. Exam Vital Signs Vital Sign - Last Date Time Temp Pulse Resp B/P Pulse Ox O2 Delivery O2 Flow Rate FiO2 04/02/16 14:36 36.3 82 16 103/66 96 Nasal Cannula 2.00 Intake and Output 04/01/16 04/01/16 04/02/16 Cumulative From/Thru 15:00 23:00 07:00 04/01/16 10:11 - 04/02/16 06:36 Intake Total 536 ml 1710 ml 2246 ml Output Total 450 ml 550 ml 1000 ml Balance 86 ml 1160 ml 1246 ml Intake Oral 536 ml 400 ml 936 ml IV Total 1010 ml 1010 ml Packed Cells 300 ml 300 ml Output Urine Total 450 ml 550 ml 1000 ml # Voids 1 1 # Bowel Movements 0 0 Exam 2L NC NAD A and O x 3 mood affect WNL NC/AT no icterus no injected eyes EOMI PERRL /no pharyngeal lesions/ no oral lesions / hearing intact Supple neck coarse bilateral equal chest rise / no accessory muscle use / speaks in full sentences / no rrw RRR S1 S2 / no mrg / 2+ radial pulses Huge ascites with abdominal wall edema. 2 Areas of erythema/swelling/ tenderness. #1 LUQ next Pleurex catheter,3x4 cm,#2 RLQ 6x6 cm No rash / no jaundice SAMAYOA Peritoneal drain Left Port-A-Cath right IVs and Medications Medications Reviewed: Medications were reviewed in detail Lab and Diagnostics Result Diagram: 04/02/16 0145 04/02/16 014 X-Rays, CTs and MRIs PROCEDURE: X-RAY CATHETER PATENCY STUDY ([id number]) INDICATIONS: catheter blocked? TECHNIQUE: Iodinated contrast was injected through the patient's existing peritoneal catheter, with real-time fluoroscopy performed. COMPARISON: [facility], XA, PLEURAL CATH PLACEMENT (P), 01/12/2016 , 10:58. FINDINGS: Isovue 300 was injected via the pleura extraperitoneal catheter which demonstrates normal patency and there is free spillage of contrast media into the peritoneum along multiple side ports as well as the end of the catheter. IMPRESSION: Patent Pleurx peritoneal catheter. Dictated by: Cedric Werner RRA Interpreted: Logan Strong MD on 04/01/2016 at 15:53 Assessment & Plan Active issues and reason for admission # . Two areas of Cellulitis on abdominal wall ,acute on chronic -- Vanco Clinda meropenem in ER, continue Vanco and meropenem for now,ID consulted -- pending MRSA screen, pending blood culture, pending Dr. Porter, finished cipro 03/27/2015 from serratia peritonitis admission --diluadid and home pain oral meds --sputum cx/flu pcr pending // nebs -blood cx NGTD # malignant ascites s/p pleurex drain now with pleurex insertion site leak,acute -catheter patency study XR done 04/01 and is patent, -will drain some today -Wound Care consult placed # Chronic hypoxic respiratory failure, home O2 2 L # Normocytic anemia, recurrent 2 months with mild hypotension --transfused 1 U RBC, until then albumin now # Mild hyponatremia/recurrent low magnesium -- Replete magnesium # groin yeast --nystatin --consider UA repeat for yeast likely skin, holding azole due to known prolonged qT hx Chronic issues known prior to admission, present on admission # history of Loculated ascites, Bacterial enterococcus peritonitis, treated with daptomycin January 2016 # Stage IIIc ovarian cancer, breast cancer 2006 treated with radiation/lobectomy , BRCA 1 positive # Diabetes type 2. Neuropathic pain # Hypothyroidism. # Chronic pain, neuropathic in nature, previously opiate dependent, # hyperlipidemia. Hypertension. Obesity. # Depression # Chronic peripheral edema # Right abdominal ventral hernia due to prior peritoneal drain Resume home medications except metformin Diet DM/sliding scale insulin DVT prophylaxis lovenox held to bialteral cellulitis of abdomen // scd as tolerated // ambulate Code full Disposition discharge 2-3 days Eric Means MD Apr 02, 2016 17:28
--- NOTE | 2016-04-02 19:19 | NUR ---
Peritoneal drain Per verbal MD Means: drain pleural drain. Try and get at least 3k out. Pleurx drain manually drained. Vacuumed drain was not working well and would not remove fluid. Manually removed fluid via 60ml syringe. 2950ml purulent brown/red/pink fluid removed. Some odor noted. Pt began to experience pain after reaching across the bed for call light so RN decided to stop removing fluid for now. No official ordered to continue. paged abdiaziz PONCE so they are aware of amount out. Pain has diminished at this time. Dressing changed as old dressing was moist and saturated. Povidone used to clean around area, Tdrain gauze placed around drain and over small area of ulcerative weeping skin, Bioclusive placed over this. Care continues Addendum: 04/02/16 at 1926 by ALTHEA PIERRE RN deyanira freed MD to make aware
[2016-04-03] VITALS (10 sets, daily range): BP systolic 98–114; BP diastolic 62–77; PULSE 79–94; RESP 16–18; O2SAT 93–97
[2016-04-03] MEDS: Albuterol-Ipratropium 3 mL Inhalation Solution NEB SCH ×6 (00:03→20:12)
[2016-04-03] MEDS ORDERED: Vancomycin Serum Trough XX ONE (03:30)
--- NOTE | 2016-04-03 03:45 | CONS ---
[address] [address] CONSULTATION REPORT PATIENT: CORIE RAMIREZ : 1950 MR#: [id number] ADMIT: 04/01/2016 JOB ID: [id number] DATE OF SERVICE: 04/02/[address] Means this consult. REASON FOR CONSULTATION: Abdominal wall cellulitis with possible peritonitis. HISTORY OF PRESENT ILLNESS: The patient is an extremely unfortunate 65-year-old woman well known to me from multiple recent admissions. The patient has advanced ovarian cancer with malignant ascites. She has been receiving chemo and also has a PleurX drain to release peritoneal fluid on a frequent basis. I met her in January when she was admitted with fever, rigors and confusion and was found to have enterococcal peritonitis. She was treated aggressively on an inpatient basis and then went home and finished a prolonged course of daptomycin on an outpatient basis with apparent resolution of the problems. She then developed, a couple weeks later, erythema and tenderness around the PleurX drain which worsened despite some outpatient oral antibiotics. She was subsequently admitted to this facility for a second time in February and I again had the opportunity to see her during that admission. During that admission, she was found to have Serratia and Pseudomonas infection, which were both susceptible to Cipro. She was treated aggressively with inpatient antibiotics and improved considerably and then was sent home on March 13 on oral Cipro to cover the Pseudomonas and Serratia. The patient reports that she continued to take the Cipro and did okay for 10 days or so and then developed trouble with the PleurX drain in that she was having trouble draining fluid out of it, which led to her abdomen and legs increasing dramatically in size. This was associated with a bit of a dry cough. She also noted however that she started to develop erythema, tenderness and drainage from the right side of the abdomen, which is the opposite side from where the PleurX drain is located. There was also some erythema and tenderness around the drain itself. Because of all these problems the patient was readmitted here on April 01 with her primary problems being dysfunction of the PleurX drain with increasing abdominal girth, increased cough and abdominal wall cellulitis, both a little bit on the left around the PleurX drain and an extensive area around the right lower abdomen, distant from the PleurX drain. In association with all of this, the patient reports that she was feeling somewhat weaker and has also been feeling quite despondent about her situation even as she continues to receive chemo in an effort to bring this disease process under control. She has not had significant fevers, chills or sweats. She has had some degree of cough, but it has been a dry cough, and she has not been markedly more short of breath than usual with this process. PAST MEDICAL HISTORY: 1. Ovarian cancer with malignant ascites requiring frequent drainage since December. 2. Enterococcal peritonitis secondary to PleurX drain in January. 3. Pseudomonas and Serratia peritonitis and abdominal wall cellulitis due to PleurX drain in February 2016. 4. History of breast cancer 12 years ago with lumpectomy and chemo, now thought to be cured. 5. Morbid obesity. 6. Type 2 diabetes. 7. 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 8. Hypertension. 9. Depression. SOCIAL HISTORY: The patient drank heavily till 12 years ago, now drinks minimally. She smokes medicinal marijuana. She quit smoking 12 years ago. She lives by herself in the [facility]. FAMILY HISTORY: Negative for tuberculosis including her parents and siblings. REVIEW OF SYSTEMS: Done in its entirety. The patient says she has no significant headache today. No visual change. No sores in her mouth or no sore throat. No trouble swallowing. She has a minimal cough but requires home O2 at times as she is chronically short of breath. She has not noticed a big decrement in her pulmonary status lately. She has no pleuritic chest pain. She has noticed that her abdominal girth has increased greatly and she still has a lot of fluid in her abdomen despite removal of 3 L earlier today from the now functioning PleurX catheter. The abdominal wall cellulitis is noted in the history of present illness. She has had no vomiting and no diarrhea. She is passing urine normally without pain or frequency. Her legs have been tremendously swollen and that has been worse lately because of her dysfunction with the PleurX drain. She is able to stand and walk however, though it is a bit difficult because the bottom of her feet are "asleep." The remainder of review of systems negative. PHYSICAL EXAMINATION: Vital Signs: Reveals an afebrile woman and note that she has been afebrile since her readmission yesterday. Temperature 36.3 right now. Pulse 81, respiratory rate 18, blood pressure 103/66, saturating 93% on 2 L. Mental status: The patient is alert and oriented. She is tearful at times and appears depressed with a flat affect. She is concerned about her survival in the face of this tumor and frequent readmissions. Her head is without evidence of trauma. Her conjunctivae perhaps a bit of conjunctival pallor, otherwise negative. Oral cavity benign. No thrush or pharyngitis. Neck reasonably supple. No adenopathy. Lungs with decreased breath sounds near the bases, but otherwise quite clear. Cardiac tones, regular rate and rhythm. She has a port catheter in the upper chest which is benign. Patient's abdomen is massively distended. A PleurX catheter is present on the left side and there is about a 2 x 6 cm area of erythema stretching down from the PleurX catheter. More significantly on the right side of abdomen, there is about a 12 x 10 almost square shaped area of abdominal wall cellulitis with peeling of the skin, erythema, tenderness and a small amount of purulence very superficially. The entire abdomen is distended and the patient has a large pannus at baseline with now considerable fluid behind it. She does not have any appreciable suprapubic fullness and there is no appreciable hepatosplenomegaly. She does not have a Palencia catheter. Examination of the lower extremities reveals just basically anasarca. There is tremendous pitting edema, from the feet all the way up onto the abdominal wall. There is no skin breakdown of the feet. Her feet are relatively insensate as she has a fairly dense peripheral neuropathy. She does have good motor strength in her extremities. LABORATORY STUDIES: Include white count 6400, hematocrit 28, platelet count 391,000. She has 6% bands and 4% metamyelocytes. Her creatinine is 0.62. She does not have pyuria. Cultures from this admission include a sputum which is essentially negative with no polys, so I would consider any culture unimportant. Gram stain of the abdomen shows a few polys and a few gram variable rods. Those cultures are pending, but they do not sound promising. Blood cultures are negative and a rapid flu was negative. IMAGING: Includes a chest x-ray, done yesterday, when she was readmitted, which is clear. Catheter patency study was negative. IMPRESSION: This is a difficult case of an unfortunate woman who in January had enterococcal peritonitis related to her PleurX catheter which is in place to drain malignant ascites. In February, she was again admitted with combination Serratia Pseudomonas peritonitis as well as abdominal wall cellulitis and that got better with Cipro. She now returns with dysfunction of the catheter and abdominal wall cellulitis with cultures pending. She is not overtly toxic as she does not have fevers, tachypneic or a significant elevation of the white count, but nonetheless I think we should provide her with coverage for likely organisms while we await additional data. The bigger issue with this patient will be if she is going to require continued PleurX drainage and if so, what we could do perhaps with prophylactic antibiotics to mitigate the risk. RECOMMENDATIONS: 1. We will discontinue the vanco she is currently receiving as it is in very high doses and this could prove to be hazardous from a renal point of view. 2. We will substitute, instead of the high dose vanco, daptomycin which she tolerated well earlier and Cipro which she also tolerated recently very well. 3. ID will continue to closely follow this complex patient and provide guidance as to antibiotics both here in the hospital and at the time of discharge.
[2016-04-03] MEDS: Insulin LISPRO 300 Unit/3 mL Inj SUBQ SCH ×4 (07:54→21:56)
[2016-04-03] MEDS: Sodium Chloride LOK Flush 10 mL Syringe IVFLUSH SCH ×2 (08:30→16:30)
[2016-04-03] MEDS: CYANOCOBALAMIN PO SCH (08:30)
[2016-04-03] MEDS: FOLIC ACID PO SCH (08:30)
[2016-04-03] MEDS: DAPTOmycin Inj 750 MG in 0.9% Sodium Chloride 50 ML IV SCH (10:02)
[2016-04-03] MEDS: Nystatin 100,000 Unit/Gm 15 Gm Powder TOPICAL SCH ×2 (10:02→21:50)
[2016-04-03] MEDS: POLYSACCHARIDE IRON COMPLEX 150 MG PO SCH (10:03)
--- NOTE | 2016-04-03 15:57 | PCM.PNMED ---
Subjective Date of Service Apr 03, 2016 Subjective 2.9 L ascitic fluid drained yesterday, patient states she has improvement of discomfort. Remains afebrile. peripleurex leak slightly improved but persists. Exam Vital Signs Vital Sign - Last Date Time Temp Pulse Resp B/P Pulse Ox O2 Delivery O2 Flow Rate FiO2 04/03/16 12:44 92 18 97 Nasal Cannula 2.00 04/03/16 05:22 36.3 104/71 Intake and Output 04/02/16 04/02/16 04/03/16 Cumulative From/Thru 15:00 23:00 07:00 04/01/16 10:11 - 04/03/16 05:45 Intake Total 122 ml 1710 ml 172 ml 4250 ml Output Total 3450 ml 4450 ml Balance 122 ml -1740 ml 172 ml -200 ml Intake Oral 1104 ml 2040 ml IV Total 122 ml 606 ml 172 ml 1910 ml Packed Cells 300 ml Output Urine Total 500 ml 1500 ml Drainage Total 2950 ml 2950 ml # Voids 1 # Bowel Movements 0 0 Exam 2L NC NAD A and O x 3 mood affect WNL NC/AT no icterus no injected eyes EOMI PERRL /no pharyngeal lesions/ no oral lesions / hearing intact Supple neck coarse bilateral equal chest rise / no accessory muscle use / speaks in full sentences / no rrw RRR S1 S2 / no mrg / 2+ radial pulses Huge ascites with abdominal wall edema. 2 Areas of erythema/swelling/ tenderness. #1 LUQ next Pleurex catheter,3x4 cm,#2 RLQ 6x6 cm No rash / no jaundice SAMAYOA Peritoneal drain Left Port-A-Cath right IVs and Medications Medications Reviewed: Medications were reviewed in detail Lab and Diagnostics Result Diagram: 04/02/16 0145 04/03/16 0500 X-Rays, CTs and MRIs PROCEDURE: X-RAY CATHETER PATENCY STUDY ([id number]) INDICATIONS: catheter blocked? TECHNIQUE: Iodinated contrast was injected through the patient's existing peritoneal catheter, with real-time fluoroscopy performed. COMPARISON: [facility], , PLEURAL CATH PLACEMENT (P), 01/12/2016 , 10:58. FINDINGS: Isovue 300 was injected via the pleura extraperitoneal catheter which demonstrates normal patency and there is free spillage of contrast media into the peritoneum along multiple side ports as well as the end of the catheter. IMPRESSION: Patent Pleurx peritoneal catheter. Dictated by: Cedric Werner RRA Interpreted: Logan Strong MD on 04/01/2016 at 15:53 Assessment & Plan Active issues and reason for admission # .Abdominal wall cellulitis. Two areas of Cellulitis on abdominal wall ,acute on chronic -- Initially treated with Vanco , Clinda and meropenem,ID consulted . Antibiotics switched to daptomycin and ciprofloxacin -- blood culture negative, wound culture pending --diluadid and home pain oral meds -blood cx NGTD # malignant ascites s/p pleurex drain now with pleurex insertion site leak,acute -catheter patency study XR done 04/01 and is patent, - drained 2.9 L on 04/02 -Wound Care consult placed # Chronic hypoxic respiratory failure, home O2 2 L # Normocytic anemia requiring transfusion, recurrent 2 months with mild hypotension --transfused 1 U RBC # Mild hyponatremia/recurrent low magnesium -- Replete magnesium Chronic issues known prior to admission, present on admission # history of Loculated ascites, Bacterial enterococcus peritonitis, treated with daptomycin January 2016 # Stage IIIc ovarian cancer, breast cancer 2006 treated with radiation/lobectomy , BRCA 1 positive # Diabetes type 2. Neuropathic pain # Hypothyroidism. # Chronic pain, neuropathic in nature, previously opiate dependent, # hyperlipidemia. Hypertension. Obesity. # Depression # Chronic peripheral edema # Right abdominal ventral hernia due to prior peritoneal drain Resume home medications except metformin Diet DM/sliding scale insulin DVT prophylaxis lovenox held to bialteral cellulitis of abdomen // scd as tolerated // ambulate Code full Disposition discharge 2-3 days Eric Means MD Apr 03, 2016 15:57
[2016-04-03 16:25] LABS: Mean Corpuscular Hemoglobin 27.2 pg (27.0-35.0); Mean Corpuscular Volume 96.4 fL (81-100); Platelet Count 366 bil/L (150-400)
[2016-04-03 16:52] LABS: Magnesium 1.6 mg/dL (1.6-2.6); Phosphorus 3.4 mg/dL (2.5-4.9)
[2016-04-03 16:57] LABS: BASOPHILS % (AUTO) 0 % (0-3); EOSINOPHILS % (AUTO) 1 % (0-5); MONOCYTES % (AUTO) 11 % (4-12); NEUTROPHILS % (AUTO) 40 % (40-74)
--- NOTE | 2016-04-03 17:07 | NUR ---
Pleural Drain/Pain Per Dr. Means, asked for pleural drain to be drained. Pleural drain attached, drain worked, 450 mL of fluid removed. Patient reported 7/10 abdominal pain. 10 mg of Oxycodone given. Denies nausea at this shift. Patient repositions self for comfort. Call light and tray table within reach. Will continue to monitor patient hourly.
[2016-04-03] MEDS: 0.9% Sodium Chloride 250 ML IV SCH (19:34)
--- NOTE | 2016-04-03 21:56 | NUR ---
DSG; change around pleural drain done. (Small amount yellow drainage noted on old dsg). Site covered with t tube dsg and op site.
--- NOTE | 2016-04-03 23:42 | NUR ---
CARE TRANSFERED; to Marielena Musa rn at [id number].
[2016-04-04] VITALS (12 sets, daily range): BP systolic 106–139; BP diastolic 68–84; PULSE 86–104; RESP 18; O2SAT 92–97
[2016-04-04] MEDS: Albuterol-Ipratropium 3 mL Inhalation Solution NEB SCH ×6 (00:09→20:01)
[2016-04-04] MEDS: Sodium Chloride LOK Flush 10 mL Syringe IVFLUSH SCH ×4 (00:30→21:53)
[2016-04-04] MEDS: 0.9% Sodium Chloride 250 ML IV SCH (00:51)
[2016-04-04 07:12] LABS: Mean Corpuscular Hemoglobin 26.9 pg (27.0-35.0); Mean Corpuscular Volume 93.7 fL (81-100); Platelet Count 333 bil/L (150-400)
--- NOTE | 2016-04-04 07:23 | NUR ---
Activity Pt remains in bed this shift with no complaints of pain, SOB, or chest discomfort. Bedside commode used. Tele sr 80s. NS running TKO in [facility]. Care continues
[2016-04-04] MEDS: Insulin LISPRO 300 Unit/3 mL Inj SUBQ SCH ×4 (08:00→21:58)
[2016-04-04 08:11] LABS: Magnesium 1.3 mg/dL (1.6-2.6)
[2016-04-04] MEDS: CYANOCOBALAMIN PO SCH (08:30)
[2016-04-04] MEDS: FOLIC ACID PO SCH (08:30)
[2016-04-04] MEDS ORDERED: Albuterol 2.5 mg/3 mL Inhalation Solution NEB PRN ×2 (09:04→09:05)
[2016-04-04] MEDS: DAPTOmycin Inj 750 MG in 0.9% Sodium Chloride 50 ML IV SCH (09:10)
[2016-04-04] MEDS: POLYSACCHARIDE IRON COMPLEX 150 MG PO SCH (09:10)
[2016-04-04] MEDS: Nystatin 100,000 Unit/Gm 15 Gm Powder TOPICAL SCH ×2 (09:12→20:19)
[2016-04-04 10:02] LABS: BASOPHILS % (AUTO) 1 % (0-3); EOSINOPHILS % (AUTO) 0 % (0-5); MONOCYTES % (AUTO) 4 % (4-12); NEUTROPHILS % (AUTO) 46 % (40-74)
[2016-04-04] MEDS ORDERED: Magnesium Sulf 4 Gm/100 mL H2O 4 GM in IV Premix 1 EACH IV ONE (10:25)
--- NOTE | 2016-04-04 15:16 | DRSVH ---
PROCEDURE: X-RAY CHEST ONE VIEW, PORTABLE ([id number]) INDICATIONS: bandemia TECHNIQUE: One view of the chest was acquired. COMPARISON: [facility], CT, CT ABD PELVIS W CON, 04/04/2016, 14:02. [facility], CR, XR CHEST 1VW (PORTABLE), 04/01/2016, 11:29. FINDINGS: Surgical changes and devices: There is a Port-A-Cath on the right with tip in atrial caval junction.. Lungs and pleura: There are bibasilar consolidation or atelectasis. Small pleural effusions bilatera lly. No pneumothorax. Mediastinum: Mediastinal contours appear normal. Heart size is normal. Bones and chest wall: No suspicious bony lesions. Overlying soft tissues appear unremarkable. IMPRESSION: Bibasilar pneumonia and/or atelectasis. Dictated by: Logan Strong M.D. on 04/04/2016 at 14:57 Approved by: Logan Strong M.D. on 04/04/2016 at 14:59
--- NOTE | 2016-04-04 15:20 | DRSVH ---
PROCEDURE: CT ABDOMEN AND PELVIS WITH CONTRAST ([id number]) INDICATIONS: abdominal wall cellulitis,r/o intrabd infection TECHNIQUE: After the administration of oral and intravenous contrast, 5 mm thick sections acquired from the diap hragms to the symphysis. 5 mm thick coronal and sagittal reformats were performed. For radiation do se reduction, the following was used: automated exposure control, adjustment of mA and/or kV accordi ng to patient size. COMPARISON: [facility], CT, CT CHEST ABD PELVIS W CON, 01/10/2016, 12:28. [facility], CR, XR CATHETER PATENCY STUDY, 04/01/2016, 14:50. [facility], CT, CT ANGIO [address]ON[address] ST PE, 02/03/2016, 15:12. [facility], CR, XR CHEST 1VW (PORTABLE), 04/04/2016, 11:07. [facility], CT, CT ABD PELVIS W CON, 02/03/2016, 15:12. FINDINGS: Image quality: Excellent. ABDOMEN: Lung bases: Small bilateral pleural effusions. Bibasilar consolidations and/or atelectasis are presen t. Heart size is normal. Solid organs: Liver and spleen are normal in size and enhancement. Gallbladder is contracted. Bili felix system is non-dilated. Pancreas enhances normally. There is a 4.2 x 2.8 cm left adrenal mass, un changed in size. Kidneys are normal in size and enhancement, without hydronephrosis. Peritoneum and bowel: There is a large loculated fluid collection with pockets of air in the anterio r abdomen measuring 20.8 cm in cephalocaudal x 30.4 cm transverse x 21.1 cm anterior-posterior. The c ollection has increased in size. There is subtle rim enhancement along the pleural collection. A cath eter is seen within the collection. Stomach, small bowel, and colon loops are normal in caliber and wall thickness. Moderate amount of stool in colon. No free fluid or air. Nodes and vessels: There is soft tissue edema and skin thickening in the anterior abdominal wall. No retroperitoneal or mesenteric adenopathy. Aorta and inferior vena cava are normal in caliber. Miscellaneous: No ventral hernias. PELVIS: Genitourinary: Bladder wall thickness is normal. Miscellaneous: No inguinal hernias or adenopathy. Bones: No suspicious bony lesions. No vertebral body compression fractures. IMPRESSION: 1. A large loculated fluid collection with pockets of air in the anterior abdomen. There is a cathete r within the collection. This is suspicious for a large abscess/infected malignant ascites. 2. Soft tissue edema and skin thickening of the anterior abdominal wall consistent with cellulitis. 3. Bibasilar consolidations/atelectasis with small pleural effusions. 4. Stable left adrenal mass. The result was discussed with Dr. Means on 04/04/2016 at 1530 hours. Dictated by: Logan Strong M.D. on 04/04/2016 at 15:05 Transcribed by: SHANTELLE on 04/04/2016 at 15:20 Approved by: Logan Strong M.D. on 04/04/2016 at 15:32
[2016-04-04] MEDS ORDERED: Lactulose 20 Gm/30 mL 30 mL Syrup PO ONE (15:45)
--- NOTE | 2016-04-04 17:16 | PCM.PNMED ---
Subjective Date of Service Apr 04, 2016 Subjective Constipated, lactulose added bowel regimen .2L of peritoneal fluid removed yesterday. We will remove more today. Worsening bandemia noted on CBC. CT done consistent is infected, loculated ascites. will send fluid for analysis Exam Vital Signs Vital Sign - Last Date Time Temp Pulse Resp B/P Pulse Ox O2 Delivery O2 Flow Rate FiO2 04/04/16 16:52 87 18 95 Nasal Cannula 2.00 04/04/16 09:01 36.4 106/68 Intake and Output 04/03/16 04/03/16 04/04/16 Cumulative From/Thru 15:00 23:00 07:00 04/01/16 10:11 - 04/04/16 06:25 Intake Total 300 ml 1336 ml 854 ml 6740 ml Output Total 700 ml 450 ml 1600 ml 7200 ml Balance -400 ml 886 ml -746 ml -460 ml Intake Oral 300 ml 1336 ml 854 ml 4530 ml IV Total 1910 ml Packed Cells 300 ml Output Urine Total 250 ml 450 ml 1600 ml 3800 ml Drainage Total 450 ml 3400 ml # Voids 1 # Bowel Movements 0 0 Exam 2L NC NAD A and O x 3 mood affect WNL NC/AT no icterus no injected eyes EOMI PERRL /no pharyngeal lesions/ no oral lesions / hearing intact Supple neck coarse bilateral equal chest rise / no accessory muscle use / speaks in full sentences / no rrw RRR S1 S2 / no mrg / 2+ radial pulses Huge ascites with abdominal wall edema. 2 Areas of erythema/swelling/ tenderness. #1 LUQ next Pleurex catheter,3x4 cm,#2 RLQ 6x6 cm with underlying abscess No rash / no jaundice SAMAYOA Peritoneal drain Left Port-A-Cath right IVs and Medications Medications Reviewed: Medications were reviewed in detail Lab and Diagnostics Result Diagram: 04/04/1645 04/04/16 0645 X-Rays, CTs and MRIs PROCEDURE: X-RAY CATHETER PATENCY STUDY ([id number]) INDICATIONS: catheter blocked? TECHNIQUE: Iodinated contrast was injected through the patient's existing peritoneal catheter, with real-time fluoroscopy performed. COMPARISON: [facility], , PLEURAL CATH PLACEMENT (P), 01/12/2016 , 10:58. FINDINGS: Isovue 300 was injected via the pleura extraperitoneal catheter which demonstrates normal patency and there is free spillage of contrast media into the peritoneum along multiple side ports as well as the end of the catheter. IMPRESSION: Patent Pleurx peritoneal catheter. Dictated by: Cedric Werner RRA Interpreted: Logan Strong MD on 04/01/2016 at 15:53 PROCEDURE: CT ABDOMEN AND PELVIS WITH CONTRAST ([id number]) INDICATIONS: abdominal wall cellulitis,r/o intrabd infection TECHNIQUE: After the administration of oral and intravenous contrast, 5 mm thick sections acquired from the diaphragms to the symphysis. 5 mm thick coronal and sagittal reformats were performed. For radiation dose reduction, the following was used : automated exposure control, adjustment of mA and/or kV according to patient size. COMPARISON: [facility], CT, CT CHEST ABD PELVIS W CON, 01/10/2016, 12:28. [facility], CR, XR CATHETER PATENCY STUDY, 04/01/2016, 14: 50. [facility], CT, CT ANGIO CHEST PE, 02/03/2016, 15:12. [facility], CR, XR CHEST 1VW (PORTABLE), 04/04/2016, 11:07. [facility], CT, CT ABD PELVIS W CON, 02/03/2016, 15:12. FINDINGS: Image quality: Excellent. ABDOMEN: Lung bases: Small bilateral pleural effusions. Bibasilar consolidations and/or atelectasis are present. Heart size is normal. Solid organs: Liver and spleen are normal in size and enhancement. Gallbladder is contracted. Biliary system is non-dilated. Pancreas enhances normally. There is a 4.2 x 2.8 cm left adrenal mass, unchanged in size. Kidneys are normal in size and enhancement, without hydronephrosis. Peritoneum and bowel: There is a large loculated fluid collection with pockets of air in the anterior abdomen measuring 20.8 cm in cephalocaudal x 30.4 cm transverse x 21.1 cm anterior-posterior. The collection has increased in size. There is subtle rim enhancement along the pleural collection. A catheter is seen within the collection. Stomach, small bowel, and colon loops are normal in caliber and wall thickness. Moderate amount of stool in colon. No free fluid or air. Nodes and vessels: There is soft tissue edema and skin thickening in the anterior abdominal wall. No retroperitoneal or mesenteric adenopathy. Aorta and inferior vena cava are normal in caliber. Miscellaneous: No ventral hernias. PELVIS: Genitourinary: Bladder wall thickness is normal. Miscellaneous: No inguinal hernias or adenopathy. Bones: No suspicious bony lesions. No vertebral body compression fractures. IMPRESSION: 1. A large loculated fluid collection with pockets of air in the anterior abdomen. There is a catheter within the collection. This is suspicious for a large abscess/infected malignant ascites. 2. Soft tissue edema and skin thickening of the anterior abdominal wall consistent with cellulitis. 3. Bibasilar consolidations/atelectasis with small pleural effusions. 4. Stable left adrenal mass. The result was discussed with Dr. Means on 04/04/2016 at 1530 hours. Dictated by: Logan Strong M.D. on 04/04/2016 at 15:05 Assessment & Plan Active issues and reason for admission # .Abdominal wall cellulitis with abdominal wall abscess. Suspected infected loculated ascites. Two areas of Cellulitis on abdominal wall ,acute on chronic -- Initially treated with Vanco , Clinda and meropenem,ID consulted . Antibiotics switched to daptomycin and ciprofloxacin -- blood culture negative, wound culture pending --diluadid and home pain oral meds -blood cx NGTD -worsening bandemia noted, CT scan 11/02/16 A large loculated fluid collection with pockets of air in the anterior abdomen. There is a catheter within the collection. This is suspicious for a large abscess/infected malignant ascites. Spoke with surgery and oncologist geospatial applications developer Dr Gonzalez, primary oncologist Dr Winkler will see her tomorrow.surgeon will await Dr Winkler's input # Infected malignant ascites s/p pleurex drain now with pleurex insertion site leak,acute -catheter patency study XR done 04/01 and is patent, - drained 2.0 L on 04/03 -Wound Care consult placed -will send fluid for analysis # sepsis due to above,met criteria today due to HR 104, worsening bandemia # Chronic hypoxic respiratory failure, home O2 2 L # Normocytic anemia requiring transfusion, recurrent 2 months with mild hypotension --transfused 1 U RBC # Mild hyponatremia/recurrent low magnesium -- Replete magnesium Chronic issues known prior to admission, present on admission # history of Loculated ascites, Bacterial enterococcus peritonitis, treated with daptomycin January 2016 # Stage IIIc ovarian cancer, breast cancer 2006 treated with radiation/lobectomy , BRCA 1 positive # Diabetes type 2. Neuropathic pain # Hypothyroidism. # Chronic pain, neuropathic in nature, previously opiate dependent, # hyperlipidemia. Hypertension. Obesity. # Depression # Chronic peripheral edema # Right abdominal ventral hernia due to prior peritoneal drain Resume home medications except metformin Diet DM/sliding scale insulin DVT prophylaxis lovenox held to bialteral cellulitis of abdomen // scd as tolerated // ambulate Code full Disposition pending hospital course Eric Means MD Apr 04, 2016 17:15
--- NOTE | 2016-04-04 18:00 | NUR ---
Ascites, CT scan Ascites - Her abdominal fluid was drained today through her drain. Dr. Means had wanted about 2L drained. She was only able to get 700mls off. Notified the MD. CT scan - She left via wheelchair and transporter at [address] scan and returned to her room [facility] 1016 at 1410. Care continues.
[2016-04-04 19:02] LABS: BFWBC 136000 /mm3; MONOCYTES,BODY FLUID 0 %; OTHER CELLS,BODY FLUID 0
--- NOTE | 2016-04-04 23:36 | NUR ---
GI/SKIN; huge bm per bsc after lactolose, and colace given today. Dsg changed over open blisters- yellow drainage on old dsg.
[2016-04-05] VITALS (11 sets, daily range): BP systolic 94–117; BP diastolic 58–77; PULSE 78–95; RESP 18–20; O2SAT 86–98
[2016-04-05 05:04] LABS: Mean Corpuscular Volume 93.3 fL (81-100); Platelet Count 323 bil/L (150-400)
[2016-04-05 05:30] LABS: BASOPHILS % (AUTO) 1 % (0-3); EOSINOPHILS % (AUTO) 0 % (0-5); MONOCYTES % (AUTO) 9 % (4-12); NEUTROPHILS % (AUTO) 62 % (40-74)
[2016-04-05] MEDS: 0.9% Sodium Chloride 250 ML IV SCH (05:57)
[2016-04-05] MEDS: Insulin LISPRO 300 Unit/3 mL Inj SUBQ SCH ×4 (08:00→22:00)
[2016-04-05] MEDS: DAPTOmycin Inj 750 MG in 0.9% Sodium Chloride 50 ML IV SCH (08:14)
[2016-04-05] MEDS: FOLIC ACID PO SCH (08:30)
[2016-04-05] MEDS: Sodium Chloride LOK Flush 10 mL Syringe IVFLUSH SCH ×3 (08:30→23:17)
[2016-04-05] MEDS: CYANOCOBALAMIN PO SCH (08:30)
--- NOTE | 2016-04-05 08:37 | PCM.PNSURG ---
Subjective Visit Information: Reason for Visit Cellulitis Surgery/Surgery Date Post-Op Day # Date of Admission: Apr 01, 2016 at 15:00 Hospital Day # Subjective: drain was placed by Dr. Harmon in Dec 2015; it was used yesterday and drained fluid Objective Objective awake, sitting up and eating breakfast Abd: obese, L sided drain in place, some erythema along abd wall Peritoneal fluid cx --> pending Vital Sign- Last 8 Hours Date Time Temp Pulse Resp B/P Pulse Ox O2 Delivery O2 Flow Rate FiO2 04/05/16 05:17 36.9 78 18 94/58 98 Nasal Cannula 2.00 Intake and Output- Last 8 Hour 04/05/16 Cumulative From/Thru 07:00 04/01/16 10:11 - 04/05/16 06:00 Intake Total 720 ml 9388 ml Output Total 650 ml 9250 ml Balance 70 ml 138 ml Intake Oral 600 ml 6702 ml IV Total 120 ml 2386 ml Packed Cells 300 ml Output Urine Total 650 ml 5150 ml Drainage Total 4100 ml # Voids 1 # Bowel Movements 1 1 Result Diagram: 04/05/16 0445 04/05/16 0445 Assessment & Plan Impression Ovarian CA Loculated ascites with pleurex catheter in place Less bands on CBC today Problems: Plan Await decision by Med Oncologist regarding removal of catheter or not Andrey Renae MD Apr 05, 2016 08:37
[2016-04-05] MEDS: Albuterol-Ipratropium 3 mL Inhalation Solution NEB SCH ×4 (09:02→20:28)
[2016-04-05] MEDS: POLYSACCHARIDE IRON COMPLEX 150 MG PO SCH (09:32)
[2016-04-05] MEDS: Nystatin 100,000 Unit/Gm 15 Gm Powder TOPICAL SCH ×2 (09:33→22:07)
--- NOTE | 2016-04-05 12:40 | NUR ---
Social Work-continued d/c planning: Data:EMR Reviewed. Pt is on day 4 of hospitalization for cellulitis per H&P. Pt is not medically stable, anticipate several more days. Pt resides at home and has caregivers that come and assist her. Pt is currently open with [facility]. [facility] spoke with [facility] liaison who confirms they are open with pt for RN and PT services. Pt will need resume HH orders at discharge. SW will continue to follow. Assessment:Pt who will need resume HH orders. Plan:Pt to discharge home when medically stable via POV. Pt has [facility] caregivers and will need resume HH orders through [facility] for RN and PT when medically stable. SW will continue to follow. FREDERIC Minor
--- NOTE | 2016-04-05 12:59 | NUR ---
Wound Care [facility] Patient seen for wound evaluation to open areas on abdomen. Patient with small open area distal to drain tube in left lower abdomen with moderate think yellow drainage on dressing. Open area measures 0.3cmL x 0.7cmW x 0.3cm D with 100% pale red wound bed. Wound may tunnel down with increased depth, however open area smaller than end of q-tip. MDs following for abscess and patency of drain closely. Red area surrounding measures approx 6cmL x 3cmW. Entire abdomen very red and tender. Cleaned with NS. Covered with Aquacel AG surgical dressing with cut for drainage tube. Right lateral abdomen with excoriated and reddened area measuring 7cm L x 5.5cm W with scattered pin-point sized open areas that area heavily draining yellow serous drainage. Wound cleaned with NS. Applied skin prep periwoudn. Covered with Mepilex foam and secured with hypafix tape. Due to increased drainage, dressing will likely need to be changed frequently. Nursing to change as needed for soiling and wound care to follow up in 24 to 48 hours.
[2016-04-05] MEDS: Meropenem Inj 2,000 MG in 0.9% Sodium Chloride 100 ML IV SCH ×2 (14:11→22:07)
[2016-04-05] MEDS: LORazepam 1 mg Tablet PO PRN (14:11)
--- NOTE | 2016-04-05 17:20 | PCM.PNMED ---
Subjective Date of Service Apr 05, 2016 Subjective denies any new issues/complaints Exam Vital Signs Vital Sign - Last Date Time Temp Pulse Resp B/P Pulse Ox O2 Delivery O2 Flow Rate FiO2 04/05/16 17:09 84 18 94 Nasal Cannula 2.00 04/05/16 16:44 36.6 105/69 Intake and Output 04/04/16 04/04/16 04/05/16 Cumulative From/Thru 15:00 23:00 07:00 04/01/16 10:11 - 04/05/16 06:00 Intake Total 126 ml 1802 ml 720 ml 9388 ml Output Total 1400 ml 650 ml 9250 ml Balance 126 ml 402 ml 70 ml 138 ml Intake Oral 1572 ml 600 ml 6702 ml IV Total 126 ml 230 ml 120 ml 2386 ml Packed Cells 300 ml Output Urine Total 700 ml 650 ml 5150 ml Drainage Total 700 ml 4100 ml # Voids 1 # Bowel Movements 0 1 1 General: Alert, Cooperative, No Acute Distress Head: Normal Eyes: Scleral Anicteric Mouth: Mucous Membr Moist/[place] Neck: Supple Chest & Lungs: Chest Wall Normal, Clear to auscultation & percussion, Other ( Port-A-Cath in right upper chest) Cardiovascular: Regular Rate/Rhythm Abdomen: Non-tender, Soft, Other (Peritoneal drain Left) Extremities: No cyanosis/clubbing/edma bilat Skin: Other (erythema of right lower abd wall) Neurological: Grossly Neurologically Intact, Cranial Nerves 2-12 Intact, Normal Speech IVs and Medications Medications Reviewed: Medications were reviewed in detail Lab and Diagnostics Result Diagram: 04/05/1644404/05/16444 X-Rays, CTs and MRIs PROCEDURE: X-RAY CATHETER PATENCY STUDY ([id number]) INDICATIONS: catheter blocked? TECHNIQUE: Iodinated contrast was injected through the patient's existing peritoneal catheter, with real-time fluoroscopy performed. COMPARISON: [facility], XA, PLEURAL CATH PLACEMENT (P), 01/12/2016 , 10:58. FINDINGS: Isovue 300 was injected via the pleura extraperitoneal catheter which demonstrates normal patency and there is free spillage of contrast media into the peritoneum along multiple side ports as well as the end of the catheter. IMPRESSION: Patent Pleurx peritoneal catheter. Dictated by: Cedric Werner RRAdriano Interpreted: Logan Strong MD on 04/01/2016 at 15:53 PROCEDURE: CT ABDOMEN AND PELVIS WITH CONTRAST ([id number]) INDICATIONS: abdominal wall cellulitis,r/o intrabd infection TECHNIQUE: After the administration of oral and intravenous contrast, 5 mm thick sections acquired from the diaphragms to the symphysis. 5 mm thick coronal and sagittal reformats were performed. For radiation dose reduction, the following was used : automated exposure control, adjustment of mA and/or kV according to patient size. COMPARISON: [facility], CT, CT CHEST ABD PELVIS W CON, 01/10/2016, 12:28. [facility], CR, XR CATHETER PATENCY STUDY, 04/01/2016, 14: 50. [facility], CT, CT ANGIO CHEST PE, 02/03/2016, 15:12. [facility], CR, XR CHEST 1VW (PORTABLE), 04/04/2016, 11:07. [facility], CT, CT ABD PELVIS W CON, 02/03/2016, 15:12. FINDINGS: Image quality: Excellent. ABDOMEN: Lung bases: Small bilateral pleural effusions. Bibasilar consolidations and/or atelectasis are present. Heart size is normal. Solid organs: Liver and spleen are normal in size and enhancement. Gallbladder is contracted. Biliary system is non-dilated. Pancreas enhances normally. There is a 4.2 x 2.8 cm left adrenal mass, unchanged in size. Kidneys are normal in size and enhancement, without hydronephrosis. Peritoneum and bowel: There is a large loculated fluid collection with pockets of air in the anterior abdomen measuring 20.8 cm in cephalocaudal x 30.4 cm transverse x 21.1 cm anterior-posterior. The collection has increased in size. There is subtle rim enhancement along the pleural collection. A catheter is seen within the collection. Stomach, small bowel, and colon loops are normal in caliber and wall thickness. Moderate amount of stool in colon. No free fluid or air. Nodes and vessels: There is soft tissue edema and skin thickening in the anterior abdominal wall. No retroperitoneal or mesenteric adenopathy. Aorta and inferior vena cava are normal in caliber. Miscellaneous: No ventral hernias. PELVIS: Genitourinary: Bladder wall thickness is normal. Miscellaneous: No inguinal hernias or adenopathy. Bones: No suspicious bony lesions. No vertebral body compression fractures. IMPRESSION: 1. A large loculated fluid collection with pockets of air in the anterior abdomen. There is a catheter within the collection. This is suspicious for a large abscess/infected malignant ascites. 2. Soft tissue edema and skin thickening of the anterior abdominal wall consistent with cellulitis. 3. Bibasilar consolidations/atelectasis with small pleural effusions. 4. Stable left adrenal mass. The result was discussed with Dr. Means on 04/04/2016 at 1530 hours. Dictated by: Logan Strong M.D. on 04/04/2016 at 15:05 Assessment & Plan 65-year-old female, on chemotherapy and related leukopenia sent by cancer Center complaining of pain and redness around left peritoneal drain-recurrent and right abdomen skin-new onset # .Abdominal wall cellulitis with abdominal wall abscess. Suspected infected loculated ascites. Two areas of Cellulitis on abdominal wall ,acute on chronic - Initially treated with Vanco , Clinda and meropenem. - appreciate ID consult. will f/u w/ recs. Antibiotics switched to daptomycin and ciprofloxacin - f/u pending cultures - c/w supportive care - CT scan 11/02/16 A large loculated fluid collection with pockets of air in the anterior abdomen. There is a catheter within the collection. This is suspicious for a large abscess/infected malignant ascites. - appreciate surgery consult. will f/u w/ recs - Awaiting Dr Winkler to see patient later today and surgery will await Dr Winkler's input # Infected malignant ascites s/p Pleurx drain now with Pleurx insertion site leak,acute - catheter patency study XR done 04/01 and is patent, - drained 2.0 L on 04/03 - Wound Care consult # sepsis due to above,met criteria today due to HR 104, worsening bandemia - clinically improved - plan as noted above # Chronic hypoxic respiratory failure, stable. - c/w home O2 2 L # Normocytic anemia requiring transfusion, recurrent 2 months with mild hypotension - transfused 1 U RBC # Mild hyponatremia/recurrent low magnesium - Replete and f/u Chronic issues known prior to admission, present on admission: # history of Loculated ascites, Bacterial enterococcus peritonitis, treated with daptomycin January 2016 # Stage IIIc ovarian cancer, breast cancer 2005 treated with radiation/lobectomy , BRCA 1 positive - further treatment recs per oncology # Diabetes type 2. Neuropathic pain - c/w current coverage # Hypothyroidism. - c/w Levothyroxine # Chronic pain, neuropathic in nature, previously opiate dependent, stable # hyperlipidemia. Hypertension. Obesity. - c/w home meds # Depression. stable Dispo: 1-2 days Time spent 35 min Tavo Gordon Apr 05, 2016 17:20
--- NOTE | 2016-04-05 18:22 | PROG NOTE ---
[address] [address] PROGRESS NOTE PATIENT: CORIE RAMIREZ : 1950 MR#: [id number] ADMIT: 04/01/2016 JOB ID: [id number] DATE: 04/05/2016 REASON FOR FOLLOWUP: Pseudomonas peritonitis in the setting of malignant ascites with a drain. INTERVAL HISTORY: Over the past couple of days, the patient reports she has been free of fevers or chills. She continues to be modestly short of breath and requiring nasal oxygen. She is having no problem with her right chest port line. Her abdomen continues to be grossly swollen and painful along the site of the left drain. She had a nurse drain 700 cc of peritoneal fluid yesterday and they plan to drain some more today. PHYSICAL EXAMINATION: Reveals an afebrile woman, temp 36.8, pulse 95, respiratory rate 18, blood pressure 110/70. Her O2 sats vary between 86 and 97% on 2 L. She appears very much chronically ill but in no acute distress. She has nasal oxygen flowing. Eyes without conjunctivitis or scleritis. The oral cavity benign. No thrush. Right chest port line benign. Lungs with decreased breath sounds at the bases. A few crackles bilaterally. The patient's abdomen is grossly distended with ascitic fluid. Drain is present in the left and I discussed this drain at the bedside with the wound management nurse. We examined and reviewed this. There is an area of erythema at the site of the left abdominal wall drain as well as a smaller area several centimeters below which are inflamed and erythematous. On the right side of the abdomen, there is a much larger area of abdominal wall cellulitis which I did not see during the wound change today, but this is very sizable area which I did see Tuesday when I saw the patient on rounds. This is an area of abdominal wall cellulitis which is, according to the wound nurse, about the same as it has been. The abdomen itself is nontender but around these two areas on the left and right side of the abdomen respectively, there is considerable localized tenderness, especially around the drain site. There is no significant change in lower extremity edema. No additional skin rashes seen except for those mentioned on the abdominal wall. White count stable at 8400. Diff shows 1% metamyelocytes, 1% myelocytes. Creatinine 0.55. LFTs normal. Pro calcitonin 0.18. Urinalysis without white cells. The peritoneal fluid obtained yesterday has 136,000 white cells, all polys basically. Micro studies include Pseudomonas growing from an abdominal wall swab well as Pseudomonas growing from peritoneal fluid obtained yesterday and this is very heavy growth. The Pseudomonas is sensitive to all tested drugs, but I do not see ciprofloxacin so I will need to call the micro lab. IMPRESSION: This unfortunate patient now has Pseudomonas peritonitis. Recall that during an admission in January, she had Enterococcus peritonitis and in February Serratia which was sensitive to Cipro. At this point, it appears we have a Cipro-resistant Pseudomonas and will need to clarify that with the micro lab. This monthly occurrence of severe peritonitis in the setting of advanced malignancy and malignant ascites is a disconcerting and difficult problem to deal with. I suspect that removing the drain would be helpful in terms of diminishing the risk of future peritonitis episodes, but this would, of course, leave the patient with rapidly accumulating malignant ascites. This could be managed, I suppose, by percutaneous paracentesis on a very frequent basis but this would obviously diminish the patient's quality of life. At this point, she is accumulating perhaps a liter a day of malignant ascites and every day or two she drains considerable amounts off her abdomen which she can do it by herself at home. This is a thorny issue and will likely come down to a matter of patient comfort. I have placed a call to Dr. Winkler to discuss the case. If there is no additional good chemotherapy available which might stem this malignant ascites accumulation problem, then it may be reasonable for the patient to move to comfort or hospice care. If, on the other hand, we wished to aggressively pursue this organism, we are going to be need a prolonged course of IV antibiotics directed at Pseudomonas and removal of the drain or will have to accept monthly or more often episode of severe peritonitis which will eventually, of course, catch up to the patient. RECOMMENDATIONS: 1. Will discontinue the daptomycin she is receiving since we have not isolated any more of the VRE or MRSA. 2. Meropenem will be started in maximal doses. Note that I have avoided the use of beta lactams such as cefepime because of a history of a fairly severe cephalexin process which the patient cannot quite recall in the past. 3. I will continue the Cipro for now until I clarify the situation on the Pseudomonas with the laboratory, but if it is resistant, we will unfortunately be forced to drop his agent and treat with a single agent.
[2016-04-06] VITALS (8 sets, daily range): BP systolic 106–125; BP diastolic 67–76; PULSE 84–95; RESP 18–20; O2SAT 94–98
[2016-04-06] MEDS ORDERED: Meropenem Inj 2,000 MG in 0.9% Sodium Chloride 100 ML IV SCH ×2 (00:20→14:00)
[2016-04-06 06:15] LABS: Mean Corpuscular Hemoglobin 27.3 pg (27.0-35.0); Mean Corpuscular Volume 93.6 fL (81-100); Platelet Count 299 bil/L (150-400)
[2016-04-06 06:21] LABS: Magnesium 1.4 mg/dL (1.6-2.6)
--- NOTE | 2016-04-06 06:36 | NUR ---
Dressings Dressing to RU quadrant abcess shows minimal drainage, intact. Dressing to pleurex drain intact and shows minimal drainage as well. Portacath running TKO. Pt decides she does not want to drain it at HS. No complaints of pain this shift, some vocalizations of pain while changing position. Pt vocalizes her depression at still being in the hospital, feels hopeless that it is endless/pointless. Redirected conversation to her cats. BM sample not obtainable for adrianc. Care continues
[2016-04-06] MEDS ORDERED: Ipratropium 0.02% 0.5 mg/2.5 mL Inhalation Solution NEB ONE (07:58)
[2016-04-06] MEDS: Insulin LISPRO 300 Unit/3 mL Inj SUBQ SCH ×4 (08:00→22:10)
[2016-04-06] MEDS: Albuterol-Ipratropium 3 mL Inhalation Solution NEB SCH ×4 (08:17→20:54)
[2016-04-06] MEDS: Sodium Chloride LOK Flush 10 mL Syringe IVFLUSH SCH ×2 (08:30→16:30)
[2016-04-06] MEDS: FOLIC ACID PO SCH (08:30)
[2016-04-06] MEDS: CYANOCOBALAMIN PO SCH (08:30)
[2016-04-06 08:32] LABS: BASOPHILS % (AUTO) 0 % (0-3); EOSINOPHILS % (AUTO) 1 % (0-5); MONOCYTES % (AUTO) 12 % (4-12); NEUTROPHILS % (AUTO) 67 % (40-74)
[2016-04-06] MEDS: POLYSACCHARIDE IRON COMPLEX 150 MG PO SCH (08:56)
[2016-04-06] MEDS: Nystatin 100,000 Unit/Gm 15 Gm Powder TOPICAL SCH ×2 (08:58→20:45)
--- NOTE | 2016-04-06 14:29 | PROG NOTE ---
[address] [address] PROGRESS NOTE PATIENT: CORIE RAMIREZ : 1950 MR#: [id number] ADMIT: 04/01/2016 JOB ID: [id number] DATE: 04/06/2016 INFECTIOUS DISEASE FOLLOWUP NOTE: REASON FOR FOLLOWUP: Pseudomonas peritonitis in a patient with malignant ovarian ascites. INTERVAL HISTORY: Overnight the patient has felt a little better. No fevers or chills. Her breathing continues to be relatively stable, without particular shortness of breath or cough. Her abdominal pain has diminished somewhat but is still quite painful around the site of the left-sided ring. No diarrhea. PHYSICAL EXAMINATION: Reveals an afebrile woman who is gradually looking more comfortable. Temp 36.5, pulse 89, respiratory rate 18, blood pressure 108/67, saturating 96% on 2 L. Examination of the mental status reveals it to be clear and her mood seems a bit brighter today. Oral cavity negative. Lungs clear. Port is present in the right upper chest and is benign. Cardiac tones regular rate and rhythm. The patient's abdomen is distended, with tenderness extending inferiorly for several centimeters from the site of the left abdominal drain. The right side of the abdomen has a large area of shallow skin breakdown which is covered by a dressing which I did not remove. She does not have a Palencia catheter. Extremities continue to be quite weak and the patient tells me she can only ambulate a few steps at most. LABORATORY STUDIES: Include white count 8400, now with basically normal diff. Creatinine 0.46. LFTs normal. Procalcitonin 0.08. The peritoneal fluid had greater than 100,000 white cells when it was sampled on the and the culture has grown Pseudomonas aeruginosa sensitive to all standard IV agents, but completely resistant to Cipro. An abdominal CT done on the shows a large loculated abdominal fluid collection with pockets of air in the anterior abdomen. There is a catheter and the radiologist believes this looks like a large abscess and/or infected malignant ascites. IMPRESSION: This is an extraordinarily difficult case of a woman who is here with peritonitis due to Enterococcus in January and here with serratia peritonitis again in February 15. The current episode is Pseudomonas peritonitis with probable infection and possible abscess formation in the setting of a peritoneal drain for malignant ovarian ascites. This is an extraordinarily difficult problem. Ordinarily one would consider pulling the drain for a period of time as it is likely the source of these recurrent infections, but that would leave the patient without a drain for increasing ascites, which accumulates very rapidly due to her malignancy. The appropriate duration and intensity of antibiotics is difficult here. Right now the patient is on every 8 hour meropenem which provides coverage not only for Pseudomonas, but for other gram negatives and anaerobes which might be present in this large infected fluid collection. The patient wants to go home, rather than to a group home facility, as soon as possible but cannot manage three times a day antibiotics. I am considering a switch to twice a day cefepime which would be the only q. 12 hour infusion that would suffice for this Pseudomonas infection, but it is worth noting she has a first generation oral cephalosporin allergy where she developed vomiting and a rash. There are no easy answers in this question. I discussed this case yesterday with Dr. Winkler and apparently he discussed the case today with the patient. The plan is for the patient to go home with a drain in place for a period of time and then bring her back and remove the drain and as her infection resolves to start her on a new chemotherapeutic agent. RECOMMENDATIONS: 1. Will switch the meropenem to cefepime and see if she tolerates cefepime 2 g q. 12. 2. If she tolerates the cefepime, I think she could reasonably go home with a plan to finish 10 days of therapy starting from the , which would take us through April 15 at a minimum. 3. Unfortunately we do not have any oral agents, so all of the treatment for this Pseudomonas peritonitis will need to be IV. 4. Without removal of the drain, I think this will just be another in a series of monthly life-threatening peritonitis processes. Ultimately there needs to be some solution to the ongoing formation of malignant peritoneal fluid or we will be trapped in a situation where a drain is required, or extremely frequent paracenteses are necessary, and these will continue to come with the risk of recurrent peritonitis.
[2016-04-06] MEDS ORDERED: Cefepime Inj 2 GM in IV Premix 1 EACH IV SCH (14:30)
[2016-04-06] MEDS ORDERED: Cefepime Inj 2,000 MG in Dextrose 5% Minibag Plus 100 ML IV SCH (14:30)
--- NOTE | 2016-04-06 15:39 | PCM.PNMED ---
Subjective Date of Service Apr 06, 2016 Subjective denies any new issues/complaints Exam Vital Signs Vital Sign - Last Date Time Temp Pulse Resp B/P Pulse Ox O2 Delivery O2 Flow Rate FiO2 04/06/16 12:51 36.5 89 18 108/67 96 Nasal Cannula 2.00 Intake and Output 04/05/16 04/05/16 04/06/16 Cumulative From/Thru 15:00 23:00 07:00 04/01/16 10:11 - 04/06/16 06:36 Intake Total 1956 ml 1154 ml 72762 ml Output Total 1500 ml 1200 ml 98313 ml Balance 456 ml -46 ml 548 ml Intake Oral 1956 ml 600 ml 9258 ml IV Total 554 ml 2940 ml Packed Cells 300 ml Output Urine Total 1500 ml 800 ml 7450 ml Urine/Stool Mix 400 ml 400 ml Drainage Total 4100 ml # Voids 1 # Bowel Movements 1 2 Exam General: Alert, Cooperative, No Acute Distress Head: Normal Eyes: Scleral Anicteric Mouth: Mucous Membr Moist/Sunshine Neck: Supple Chest & Lungs: Chest Wall Normal, Clear to auscultation & percussion, Other ( Port-A-Cath in right upper chest) Cardiovascular: Regular Rate/Rhythm Abdomen: Non-tender, Soft, Other (Peritoneal drain Left) Extremities: No cyanosis/clubbing/edema bilat Skin: Other (erythema of right lower abd wall) Neurological: Grossly Neurologically Intact, Cranial Nerves 2-12 Intact, Normal Speech IVs and Medications Medications Reviewed: Medications were reviewed in detail Lab and Diagnostics Result Diagram: 04/06/1648 04/06/16 0548 X-Rays, CTs and MRIs PROCEDURE: X-RAY CATHETER PATENCY STUDY ([id number]) INDICATIONS: catheter blocked? TECHNIQUE: Iodinated contrast was injected through the patient's existing peritoneal catheter, with real-time fluoroscopy performed. COMPARISON: [facility], XA, PLEURAL CATH PLACEMENT (P), 01/12/2016 , 10:58. FINDINGS: Isovue 300 was injected via the pleura extraperitoneal catheter which demonstrates normal patency and there is free spillage of contrast media into the peritoneum along multiple side ports as well as the end of the catheter. IMPRESSION: Patent Pleurx peritoneal catheter. Dictated by: Cedric GLORIA Interpreted: Logan Strong MD on 04/01/2016 at 15:53 PROCEDURE: CT ABDOMEN AND PELVIS WITH CONTRAST ([id number]) INDICATIONS: abdominal wall cellulitis,r/o intrabd infection TECHNIQUE: After the administration of oral and intravenous contrast, 5 mm thick sections acquired from the diaphragms to the symphysis. 5 mm thick coronal and sagittal reformats were performed. For radiation dose reduction, the following was used : automated exposure control, adjustment of mA and/or kV according to patient size. COMPARISON: [facility], CT, CT CHEST ABD PELVIS W CON, 01/10/2016, 12:28. [facility], CR, XR CATHETER PATENCY STUDY, 04/01/2016, 14: 50. [facility], CT, CT ANGIO CHEST PE, 02/03/2016, 15:12. [facility], CR, XR CHEST 1VW (PORTABLE), 04/04/2016, 11:07. [facility], CT, CT ABD PELVIS W CON, 02/03/2016, 15:12. FINDINGS: Image quality: Excellent. ABDOMEN: Lung bases: Small bilateral pleural effusions. Bibasilar consolidations and/or atelectasis are present. Heart size is normal. Solid organs: Liver and spleen are normal in size and enhancement. Gallbladder is contracted. Biliary system is non-dilated. Pancreas enhances normally. There is a 4.2 x 2.8 cm left adrenal mass, unchanged in size. Kidneys are normal in size and enhancement, without hydronephrosis. Peritoneum and bowel: There is a large loculated fluid collection with pockets of air in the anterior abdomen measuring 20.8 cm in cephalocaudal x 30.4 cm transverse x 21.1 cm anterior-posterior. The collection has increased in size. There is subtle rim enhancement along the pleural collection. A catheter is seen within the collection. Stomach, small bowel, and colon loops are normal in caliber and wall thickness. Moderate amount of stool in colon. No free fluid or air. Nodes and vessels: There is soft tissue edema and skin thickening in the anterior abdominal wall. No retroperitoneal or mesenteric adenopathy. Aorta and inferior vena cava are normal in caliber. Miscellaneous: No ventral hernias. PELVIS: Genitourinary: Bladder wall thickness is normal. Miscellaneous: No inguinal hernias or adenopathy. Bones: No suspicious bony lesions. No vertebral body compression fractures. IMPRESSION: 1. A large loculated fluid collection with pockets of air in the anterior abdomen. There is a catheter within the collection. This is suspicious for a large abscess/infected malignant ascites. 2. Soft tissue edema and skin thickening of the anterior abdominal wall consistent with cellulitis. 3. Bibasilar consolidations/atelectasis with small pleural effusions. 4. Stable left adrenal mass. The result was discussed with Dr. Means on 04/04/2016 at 1530 hours. Dictated by: Logan Strong M.D. on 04/04/2016 at 15:05 Assessment & Plan 65-year-old female, on chemotherapy and related leukopenia sent by cancer Center complaining of pain and redness around left peritoneal drain-recurrent and right abdomen skin-new onset # .Abdominal wall cellulitis with abdominal wall abscess and Pseudomonas peritonitis. Two areas of Cellulitis on abdominal wall ,acute on chronic - Initially treated with Vanco , Clinda and meropenem. - appreciate ID consult. will f/u w/ recs. - appreciate surgery consult. will f/u w/ recs - Discussed with oncology (Dr Winkler) today. will f/u w/ recs - prognosis expected to be extremely poor. per discussion with Dr. Winkler will consult palliative care to further address goals of care # Infected malignant ascites s/p Pleurx drain now with Pleurx insertion site leak,acute - catheter patency study XR done 04/01 and is patent, - drained 2.0 L on 04/03 - further plan as noted above # sepsis due to above,met criteria today due to HR 104, worsening bandemia - clinically improved - plan as noted above # Chronic hypoxic respiratory failure, stable. - c/w home O2 2 L # Normocytic anemia requiring transfusion, recurrent 2 months with mild hypotension - transfused 1 U RBC # Mild hyponatremia/recurrent low magnesium - Replete and f/u Chronic issues known prior to admission, present on admission: # history of Loculated ascites, Bacterial enterococcus peritonitis, treated with daptomycin January 2016 # Stage IIIc ovarian cancer, breast cancer 2006 treated with radiation/lobectomy , BRCA 1 positive - further treatment recs per oncology # Diabetes type 2. Neuropathic pain - c/w current coverage # Hypothyroidism. - c/w Levothyroxine # Chronic pain, neuropathic in nature, previously opiate dependent, stable # hyperlipidemia. Hypertension. Obesity. - c/w home meds # Depression. stable Dispo: 1-2 days VTE Mechanical Devices: Intermittant Pneumatic CD Time spent 35 min Tavo Gordon Apr 06, 2016 15:39
--- NOTE | 2016-04-06 16:28 | NUR ---
Social Work-continued d/c planning: Data:EMR Reviewed. Pt is on day 45of hospitalization for cellulitis per H&P. Pt is not medically stable, anticipate several more days. Pt resides at home and has caregivers that come and assist her. Pt is currently open with [facility]. J[facility]ON spoke with [facility] liaison who confirms they are open with pt for RN and PT services. Pt will need resume HH orders at discharge. JHON update by HADYE PONCE that pt will need IV abx through April 15. Pt has PORT. SW followed up with pt at bedside to discuss, SW role explained. Pt agreable to home IV abx, Infusion choice list provided. Pt has no agency preference. SW referred to rotating calendar and made referral [facility]. [facility] and get back in touch with SW. Pt has been updated on this process. SW will continue to follow. Assessment:Pt who will need resume HH orders. Plan:Pt to discharge home when medically stable via POV. Pt has [facility]IRA caregivers and will need resume HH orders through [facility] for RN and PT when medically stable. [facility] checking pt's benefits from home IV abx. JHON will continue to follow. FREDERIC Minor Addendum: 04/07/16 at 0849 by ASHVIN FONTANEZ Pt is on day 5* correction
--- NOTE | 2016-04-06 16:30 | NUR ---
[facility] Choice list provided. FREDERIC Minor
--- NOTE | 2016-04-06 17:00 | NUR ---
Wound Care Dressings at abdomen changed today, aguacell adhesive island dressing placed to cover open area at plurex drain site and open area just distal to the drain. Draining wounds at right lower quadrant redressed with mepilex and tape, this area remains red and warm to the touch, worrisome for loculated abscess and am concerned this could spontaneously drain. Will recheck on this patient tomorrow.
[2016-04-06] MEDS: LORazepam 1 mg Tablet PO PRN (17:31)
[2016-04-06] MEDS: 0.9% Sodium Chloride 250 ML IV SCH (19:34)
--- NOTE | 2016-04-06 22:41 | NUR ---
Activity Pt upset and tearful after finding out that she would not be discharged today and instead would be started on a new antibiotic. Stating "I don't understand what I did to God to deserve all this." Pt declined to talk further with me or have a visit from the healthcare administrator. Pt agreeable to taking some Ativan for anxiety. Later pt asked to be taken to coffee casting molder a w/c and was okayed with charge accounts audit clerk. Pt's mood much improved after getting out of room. Pt using Roxicodone Q4 for pain. Has left plurix drain in abdomen and drains daily.
[2016-04-07] MEDS: Sodium Chloride LOK Flush 10 mL Syringe IVFLUSH SCH ×3 (00:30→16:30)
[2016-04-07] MEDS: Cefepime Inj 2,000 MG in Dextrose 5% Minibag Plus 50 ML IV SCH ×2 (01:49→15:52)
--- NOTE | 2016-04-07 04:07 | PROG NOTE ---
[address] [address] PROGRESS NOTE PATIENT: CORIE RAMIREZ : 1950 MR#: [id number] ADMIT: 04/01/2016 JOB ID: [id number] DATE: 04/06/2016 HOSPITAL ROUNDS: This is a 65-year-old woman with a recent history of treatment with combination of Taxol and carboplatin for malignant ascites related to recurrent ovarian cancer, now with progressive ascites which is both malignant and infected with Pseudomonas. Her infection is being managed by Dr. Porter and her general care is being managed by the hospitalist team. She was hospitalized on April 01, 2016, with cellulitis of the left lower quadrant related to peritoneal drain. This was seven days after the last dose of Taxol chemotherapy, which is being administered for palliative purposes, she was not neutropenic. CT performed on admission showed a large multiloculated rim enhancing fluid collection in the abdomen. There is increased rim enhancement compared to January 10, 2016, in combination with PleurX catheter, is consistent with bacterial peritonitis, also cellulitis of the abdominal wall was treated on admission. This is a complicated patient whom a PleurX catheter has been associated with previous infections in the ascitic fluid and since its placement on January 12, 2016, she has required repeated hospitalizations and antibiotic therapy for this. The question comes up now as to how to best palliate her symptoms since it will not be possible to administer anymore chemotherapy and it is going to be very difficult to control this infection. The catheter will need to be retained to drain the infected ascitic fluid and she will need to have appropriate antibiotics for an extended period of time. Subjectively, she is actually sitting in a chair, eating. She looks strong and is talkative, and asked me to call her sister, which I was unable to do today because of time being too late, but I will do tomorrow. She complains of some left lower quadrant pain and is requesting her pain medications. OBJECTIVE: Temp was 36.5, pulse 89, respiratory rate 18, blood pressure 108/67. Pulse ox 96% on 2 L. Head and neck: Edentulous, anicteric, pupils equal, round, reactive, patient is alert and talkative. There is no lymphadenopathy. Lungs: Clear to auscultation anteriorly and posteriorly. Cardiac: Rhythm is regular without murmur. However, she does have 3+ peripheral edema which is likely related to her malignancy. Abdomen is extremely distended. There is obviously tympany, but also known ascites which is demonstrated on CT scan. There is a large dressing over the left lower quadrant with the catheter coming out through the dressing. The actual skin around the catheter cannot be visualized. Another dressing over the right lower quadrant with some minimal serous fluid coming out of that. Abdomen is surprisingly minimally tender with bowel sounds present. Extremities, as noted, show extensive peripheral edema. LABORATORY VALUES: White count is 8.4 with 67% neutrophils, hemoglobin 7.3, hematocrit 25.0, platelets 299. BUN and creatinine are 7 and 0.48. Electrolytes normal except for CO2 of 34, calcium 8.1, magnesium 1.4, albumin 2.1. Microbiology shows Pseudomonas aeruginosa from the peritoneal fluid on April 04, 2016, with sensitivity to Amikacin, cefepime, gentamicin, meropenem and tobramycin. ASSESSMENT AND RECOMMENDATIONS: From a standpoint of managing her overall care and quality of life, in reading Dr. Porter's notes, she had an enterococcus in January, Serratia peritonitis in February, and now Pseudomonas peritonitis and possible abscess formation. She is on appropriate antibiotic coverage not only for Pseudomonas, but for other possible gram negatives and anaerobes according to Dr. Porter, and the catheter cannot be removed at this point in time. This is an extraordinarily difficult case from the standpoint of managing her infection. Clearly, although she has had an excellent biochemical response to chemotherapy, the real goal of chemotherapy was to alleviate her ascites and this has not happened despite the nominal response to chemotherapy on the basis of CA-125. Therefore, I have recommended to the patient that we stop chemotherapy as it has not accomplished the desired goal and has made it exceedingly difficult to clear the infection. At this point in time, all efforts should be aimed at quality of life and this would include an extended period of time on antibiotics as an outpatient, she will require IV antibiotics most likely, and maintaining the PleurX catheter with daily drainage. Regarding managing her ovarian cancer, there is a possibility that she could be treated with maintenance PARP inhibitor, olaparib, as she is BRCA positive, however, this would be maintenance therapy given the massive nature of her ascites and the severe problems with infection, and at this point, it is a little unrealistic to think that this would help her very much; and therefore, I am recommending no anticancer therapy at this time and focusing all efforts on quality of life and infection control. The patient understands this and wishes to proceed forward with plans to continue antibiotics and to be discharged with outpatient followup of the infection.
[2016-04-07 04:46] VITALS: BP 120/76; PULSE 94; RESP 20; O2SAT 94
[2016-04-07] MEDS: Insulin LISPRO 300 Unit/3 mL Inj SUBQ SCH ×4 (08:00→21:59)
[2016-04-07] MEDS: CYANOCOBALAMIN PO SCH (08:30)
[2016-04-07] MEDS: FOLIC ACID PO SCH (08:30)
[2016-04-07] MEDS: POLYSACCHARIDE IRON COMPLEX 150 MG PO SCH (09:07)
[2016-04-07] MEDS: Nystatin 100,000 Unit/Gm 15 Gm Powder TOPICAL SCH ×2 (09:08→21:32)
--- NOTE | 2016-04-07 11:27 | NUR ---
Palliative Care Palliative Care received order from Dr Gordon 04/06/16 (late in day) to assist with goals of care. Patient is a 65 year old woman with malignant ascites r/t recurrent ovarian cancer, now with progressive ascites which is both malignant and infected with pseudomonas. She was admitted 04/01/16 for care of abdominal wall cellulitis with abdominal wall abscess and pseudomonas peritonitis. The Palliative Care Team saw patient multiple times in 12/2015 during an admission. Patient lives home alone. Has SAMIRA caregiver and other private caregiver 16 hrs/wk. Ton Valverde (son) [phone], Subhash Maki (friend) [phone] Kathleen Eugene (SAMIRA) [phone], Palliative Care to follow. La [place]illa
--- NOTE | 2016-04-07 11:58 | PROG NOTE ---
[address] [address] PROGRESS NOTE PATIENT: CORIE RAMIREZ : 1950 MR#: [id number] ADMIT: 04/01/2016 JOB ID: [id number] DATE: 04/07/2016 INFECTIOUS DISEASE FOLLOWUP NOTE: REASON FOR FOLLOWUP: Pseudomonas peritonitis secondary to malignant ascites with drain in place. INTERVAL HISTORY: Overnight the patient has felt somewhat improved. She denies fevers or chills. She has no significant shortness of breath or cough. No chest pain, as noted. No sore throat. Her abdomen continues to be tender, especially around the left-sided drain, but less so on the right side. She has no new problems with the lower extremities. This case discussed extensively with Yoshi from wound management yesterday. PHYSICAL EXAMINATION: Reveals an afebrile woman in no acute distress. Temp 36.9, pulse 94, respiratory rate 20, blood pressure 120/76. She is saturating well on 2 L and in no acute distress. Mental status is clear and today her mood seems brighter than yesterday, as she has been quite depressed the last few days. Oral cavity without pharyngitis. Lungs with decreased breath sounds at the right base, otherwise clear. Cardiac tones continue regular. The port in the right upper chest appears benign. The abdomen was carefully examined. It is grossly distended, as before, due to her malignant ascites. The left-sided drain is covered with a significant dressing but the patient reports that beneath the dressing there is considerable pain just below the exit site of the PleurX catheter. I examined carefully the right side of the abdomen where there is protrusion, erythema, and some obvious cellulitis of the abdominal wall. This area is less tender and angry than it was two or three days ago but still very worrisome. Both Yoshi of wound management and I believe that the loculated infected peritoneal fluid may be attempting to exit through the right lower quadrant, and that would indeed be a disaster if it were to eventuate. LABORATORIES: Include white count 8400, diff is negative. Creatinine 0.48. LFTs are normal. Procalcitonin 0.18. Urinalysis without white cells. Micro studies include the Pseudomonas, which is resistant to quinolones but sensitive to cefepime. Note that it is almost resistant to meropenem, interestingly. IMAGING: Includes a CT scan that was done on the and shows a large loculated fluid collection with pockets of air in the abdomen. IMPRESSION: Dr. Winkler's and the wound management notes were carefully reviewed. This is an extraordinary case with a woman who has a malignant ascites secondary to ovarian cancer. She requires a drain in the left side of her abdomen for the malignant ascites and in the last three months has had three consecutive serious episodes of peritonitis. This is an almost intractable problem as she does require the drain because she is producing large amounts of malignant ascites, but the drain is obviously a two-edged sword in that it must be introducing these organisms into the peritoneal space and we now have a loculated massive area of infected malignant ascitic fluid. In reviewing Dr. Winkler's notes, he now plans to stop chemotherapy for at least a month or so and regroup while we attempt to control this infection and I think that is an excellent plan. The patient tolerated cefepime overnight and the advantage of cefepime in this situation is that it can be given twice a day at home. The patient is most desirous of getting out of the hospital for a period of time and I fully support that. Nonetheless I am very concerned that the area on the right side of the abdomen, opposite of the drain, may eventually rupture right through the abdominal wall if we do not keep her ascitic fluid and infection in check. RECOMMENDATIONS: 1. I have written home infusion orders for two weeks of cefepime and the dose would be 2 g IV q.12 h. to be continued at least through April 21. 2. Weekly labs will be checked and sent to both Dr. Winkler and myself. 3. Note that I will be out of the [place] from April 09 until April 19 and it may be very difficult to reach me during those days, except perhaps by e-mail, but not by telephone. Accordingly, I ask that questions about this home infusion therapy be referred to Dr. Winkler during that period as I will not be available and do not have infectious disease coverage here. 4. This discussed in great detail with the patient, as well as the wound care team and nursing, and all antibiotic orders have been written.
[2016-04-07 13:23] VITALS: BP 124/77; PULSE 91; RESP 20; O2SAT 96
--- NOTE | 2016-04-07 15:08 | NUR ---
Social Work- Continued Discharge Planning Data: EMR reviewed. Pt is on day 6 of hospitalization for cellulitis per H&P. Pt is not medically stable for discharge. Per MDs recommendation, patient has discontinued chemotherapy and is pursuing quality of life care. Per Dr. Perdue in rounds, pt to receive home hospice info share in 10 days. JHON called [facility]osp[facility] to request this [facility]oshare. Additionally, pt to discharge with IV antibiotics. JHON followed up with [facility] liaison Adela [phone] to confirm patient is agreeable to information and education for IV abx. Adela to check benefits and follow up with pt. Pt has [facility] caregivers and will need resume HH orders through [facility] for RN and PT when medically stable. JHON continues to follow. Assessment: Pt who will resume [facility] and PT and [facility]. Plan: [facility] to follow up with SW and pt regarding IV abx. Pt has [facility] caregivers and will need resume HH orders through [facility] for RN and PT when medically stable. JHON continues to follow. Tanna Buckley, [employer] OR [employer] TENANT FARMER
--- NOTE | 2016-04-07 15:33 | PCM.PNMED ---
Subjective Date of Service Apr 07, 2016 Subjective denies any new issues/complaints Exam Vital Signs Vital Sign - Last Date Time Temp Pulse Resp B/P Pulse Ox O2 Delivery O2 Flow Rate FiO2 04/07/16 13:23 36.8 91 20 124/77 96 Nasal Cannula 2.00 Intake and Output 04/06/16 04/06/16 04/07/16 Cumulative From/Thru 15:00 23:00 07:00 04/01/16 10:11 - 04/07/16 06:06 Intake Total 975 ml 440 ml 42448 ml Output Total 800 ml 1200 ml 85022 ml Balance 175 ml -760 ml -37 ml Intake Oral 640 ml 320 ml 44298 ml IV Total 335 ml 120 ml 3395 ml Packed Cells 300 ml Output Urine Total 800 ml 1200 ml 9450 ml Urine/Stool Mix 400 ml Drainage Total 4100 ml # Voids 1 # Bowel Movements 0 2 Exam General: Alert, Cooperative, No Acute Distress Head: Normal Eyes: Scleral Anicteric Mouth: Mucous Membr Moist/[place] Neck: Supple Chest & Lungs: Chest Wall Normal, Clear to auscultation & percussion, Other ( Port-A-Cath in right upper chest) Cardiovascular: Regular Rate/Rhythm Abdomen: Non-tender, Soft, Other (Peritoneal drain Left) Extremities: No cyanosis/clubbing. 1+ edema in LE bilat Neurological: Grossly Neurologically Intact, Cranial Nerves 2-12 Intact, Normal Speech IVs and Medications Medications Reviewed: Medications were reviewed in detail Lab and Diagnostics Result Diagram: 04/06/16 0548 04/06/16 0548 X-Rays, CTs and MRIs PROCEDURE: X-RAY CATHETER PATENCY STUDY ([id number]) INDICATIONS: catheter blocked? TECHNIQUE: Iodinated contrast was injected through the patient's existing peritoneal catheter, with real-time fluoroscopy performed. COMPARISON: [facility], XA, PLEURAL CATH PLACEMENT (P), 01/12/2016 , 10:58. FINDINGS: Isovue 300 was injected via the pleura extraperitoneal catheter which demonstrates normal patency and there is free spillage of contrast media into the peritoneum along multiple side ports as well as the end of the catheter. IMPRESSION: Patent Pleurx peritoneal catheter. Dictated by: Cedric Werner RRA Interpreted: Logan Strong MD on 04/01/2016 at 15:53 PROCEDURE: CT ABDOMEN AND PELVIS WITH CONTRAST ([id number]) INDICATIONS: abdominal wall cellulitis,r/o intrabd infection TECHNIQUE: After the administration of oral and intravenous contrast, 5 mm thick sections acquired from the diaphragms to the symphysis. 5 mm thick coronal and sagittal reformats were performed. For radiation dose reduction, the following was used : automated exposure control, adjustment of mA and/or kV according to patient size. COMPARISON: [facility], CT, CT CHEST ABD PELVIS W CON, 01/10/2016, 12:28. [facility], CR, XR CATHETER PATENCY STUDY, 04/01/2016, 14: 50. [facility], CT, CT ANGIO CHEST PE, 02/03/2016, 15:12. [facility], CR, XR CHEST 1VW (PORTABLE), 04/04/2016, 11:07. [facility], CT, CT ABD PELVIS W CON, 02/03/2016, 15:12. FINDINGS: Image quality: Excellent. ABDOMEN: Lung bases: Small bilateral pleural effusions. Bibasilar consolidations and/or atelectasis are present. Heart size is normal. Solid organs: Liver and spleen are normal in size and enhancement. Gallbladder is contracted. Biliary system is non-dilated. Pancreas enhances normally. There is a 4.2 x 2.8 cm left adrenal mass, unchanged in size. Kidneys are normal in size and enhancement, without hydronephrosis. Peritoneum and bowel: There is a large loculated fluid collection with pockets of air in the anterior abdomen measuring 20.8 cm in cephalocaudal x 30.4 cm transverse x 21.1 cm anterior-posterior. The collection has increased in size. There is subtle rim enhancement along the pleural collection. A catheter is seen within the collection. Stomach, small bowel, and colon loops are normal in caliber and wall thickness. Moderate amount of stool in colon. No free fluid or air. Nodes and vessels: There is soft tissue edema and skin thickening in the anterior abdominal wall. No retroperitoneal or mesenteric adenopathy. Aorta and inferior vena cava are normal in caliber. Miscellaneous: No ventral hernias. PELVIS: Genitourinary: Bladder wall thickness is normal. Miscellaneous: No inguinal hernias or adenopathy. Bones: No suspicious bony lesions. No vertebral body compression fractures. IMPRESSION: 1. A large loculated fluid collection with pockets of air in the anterior abdomen. There is a catheter within the collection. This is suspicious for a large abscess/infected malignant ascites. 2. Soft tissue edema and skin thickening of the anterior abdominal wall consistent with cellulitis. 3. Bibasilar consolidations/atelectasis with small pleural effusions. 4. Stable left adrenal mass. The result was discussed with Dr. Means on 04/04/2016 at 1530 hours. Dictated by: Logan Strong M.D. on 04/04/2016 at 15:05 Assessment & Plan 65-year-old female, on chemotherapy and related leukopenia sent by cancer Center complaining of pain and redness around left peritoneal drain-recurrent and right abdomen skin-new onset # Abdominal wall cellulitis with abdominal wall abscess and Pseudomonas peritonitis. Two areas of Cellulitis on abdominal wall ,acute on chronic - Initially treated with Vanco , Clinda and meropenem. - appreciate ID consult. will f/u w/ recs. - home infusion orders for two weeks of cefepime and the dose would be 2 g IV q.12 h. to be continued at least through April 21. - Weekly labs will be checked and sent to both Dr. Winkler and Dr. Porter # Infected malignant ascites s/p Pleurx drain now with Pleurx insertion site leak,acute - catheter patency study XR done 04/01 and is patent, - drained 2.0 L on 04/03 - further plan as noted above # sepsis due to above,met criteria today due to HR 104, worsening bandemia - clinically improved - plan as noted above # Chronic hypoxic respiratory failure, stable. - c/w home O2 2 L # Normocytic anemia requiring transfusion, recurrent 2 months with mild hypotension - transfused 1 U RBC # Mild hyponatremia/recurrent low magnesium - Replete and f/u # Goals of care - palliative care consulted. will f/u w/ recs Chronic issues known prior to admission, present on admission: # history of Loculated ascites, Bacterial enterococcus peritonitis, treated with daptomycin January 2016 # Stage IIIc ovarian cancer, breast cancer 2006 treated with radiation/lobectomy , BRCA 1 positive - further treatment recs per oncology # Diabetes type 2. Neuropathic pain - c/w current coverage # Hypothyroidism. - c/w Levothyroxine # Chronic pain, neuropathic in nature, previously opiate dependent, stable # hyperlipidemia. Hypertension. Obesity. - c/w home meds # Depression. stable Dispo: 1-2 days VTE Mechanical Devices: Intermittant Pneumatic CD Time spent 25 m in [place] Apr 07, 2016 15:33
[2016-04-07] MEDS ORDERED: hydrOXYzine Pamoate 25 mg Capsule PO PRN (16:08)
--- NOTE | 2016-04-07 16:55 | PCM.CONPAL ---
Date of Service Apr 07, 2016 Date of Hospital Admission: Apr 01, 2016 at 15:00 Date of Palliative Consult: Apr 07, 2016 Requesting Provider: Tavo Gordon Reason Palliative Care Consult: Goals of Care Discussion Hospital Unit @time of consult: Orthopedic/Surgical Care Palliative Care Recommendation Summary of palliative recommendations: -Symptom management (Pain/other) Depression and social isolation-huge issues for patient. I believe she would benefit greatly from hospice intervention and support. Abdominal pain Shortness of breath Massive ascites-with peritonitis and abdominal wall cellulitis Ovarian CA reviewed Dr. Winkler's note that she is failed chemotherapy with a few options going forward and the palliative care and hospice support is reasonable. She has had a hospice informational visit in the past but had do not believe she will be able to make the decision to go with hospice without additional support hopefully from her sister -DPOA/Advanced Directives/POLST-her sister is DPOAHC. Code status remains FULL for now. -Family/emotional support-I will attempt to contact her sister this evening ( after her work) -Spiritual support-she is not interested in vp lab visit Problems: Goals of Care Patient continues to hope that there is further therapy. Reviewed consideration of goals towards support at home Resuscitation Status Resuscitation Status: CPR: Attempt Resuscitation POLST Updates/Changes Artificially Admin Nutrition: No Artifical Nutrition by Tube . 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 She was diagnosed with BRCA 1 just prior to her ovarian diagnosis after finding out about some of her family history. She did fairly well after her initial treatment in 2013 but this fall began developing ascites with increasing CA 125. She has pain and dyspnea with increasing ascites and ended up having a Pleurx catheter placed. She has been draining 700 mL off every few days. She has been hospitalized a number of times for peritonitis since placement. Recently seen by Dr. Porter to manage pseudomonas peritonitis and now a cellulitis on her distended abdominal wall. Seen by Dr. Winkler during this hospitalization with concern about immunosuppression in the light of her recurrent infections. His recommendation is to discontinue her chemotherapy at this time. It is noted that its goal was to control her ascites which it has not been able to do. Her tumor markers have decreased with this therapy. The patient lives alone and has some support from her sister who lives in [facility] who calls her on a regular basis.. She has not seen her son since Thanksgiving and she had to reach out to him at that time and he has never responded since. 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 Chronic depression- Pleurex catheter for ascites Recurrent bouts of peritonitis and now abd wall cellulitis exsmoker exROXY Social History Living Situation: Lives alone is socially very isolated Spiritual Support Spiritual Support Has enjoyed [facility]uther[facility] but cannot get there due to severity of illness Palliative Performance Scale PPS Patient Status: Current PPS Ambulation: Reduced PPS Activity: Unable to do most activity PPS Self-Care: Full Self Care PPS Intake: Normal PPS Conscious Level: Full Performance Scale: 80% Allergy Allergies Reviewed: Yes Medications Current Medications: Current Medications Meropenem 2000 mg/ Sodium Chloride 100 ml @ 33.333 mls/ hr Q8H IV Last administered on 04/06/16t 05:55; Admin Dose 33.333 MLS/HR; Start 04/06/16 at 00: 20; Stop 04/06/16 at 08:53; Status DC Meropenem 2000 mg/ Sodium Chloride 100 ml @ 33.333 mls/ hr Q8H IV; Start at 14:00; Stop 04/06/16 at 14:00; Status DC Cefepime HCl 2 gm/ Premix 50 ml @ 12.5 mls/hr Q12H IV; Start 04/06/16 at 14:30 ; Stop 04/06/16 at 14:30; Status DC Cefepime HCl 2000 mg/Dextrose/Water 100 ml @ 25 mls/hr Q12H IV Last administered on 04/06/16t 14:44; Admin Dose 25 MLS/HR; Start 04/06/16 at 14:30; Stop 04/06/16 at 15:33; Status DC Cefepime HCl/ Dextrose/Water 50 ml @ 12.5 mls/hr Q12H IV Last administered on t 15:52; Admin Dose 12.5 MLS/HR; Start 04/07/16 at 02:30; Stop 04/15/16 at 14:31 Atorvastatin Calcium 40 mg HS PO; Start 04/07/16 at 21:00 Hydroxyzine Pamoate 50 mg TID PRN PO; Start 04/07/16 at 16:08 Scheduled Aspirin (Aspirin) 81 Mg Tablet 81 MG PO DAILY Atorvastatin Calcium (Atorvastatin Calcium) 40 Mg Tablet 40 MG PO HS Cholecalciferol (Vitamin D3) (Vitamin D) 1,000 Unit Capsule 2,000 UNIT PO DAILY Ciprofloxacin Hcl (Cipro (eq) 500 MG-6 Tab Prepack) 1 Pkg Pkg 750 MG PO BID Cyanocobalamin/Folic Acid (Vitamin M05-Jvaiy Acid Tablet) 1 Each Tablet 1 EACH PO DAILY Doxepin (Doxepin) 50 Mg Capsule 2 CAP PO HS Fluoxetine (Fluoxetine) 40 Mg Capsule 40 MG PO DAILY Levothyroxine (Levothyroxine) 100 Mcg Tablet 100 MCG PO DAILY Pregabalin (Lyrica) 150 Mg Capsule 150 MG PO TID Scheduled PRN Albuterol HFA (Proair HFA) 8.5 Gm Hfa.aer.ad 2 PUFFS IH Q4 PRN PRN For Shortness of Breath Clotrimazole (Athlete's Foot) 1 % Cream..g. 1 APPLIC TOPICAL TID PRN PRN dry cracking skin on feet Diclofenac Sodium (Diclofenac Sodium) 1 % Gel..gram. 1 APPLIC TOP PRN PRN PRN KNEE PAIN Ondansetron ODT (Ondansetron ODT) 4 Mg Tab.rapdis 4 MG PO q8hr PRN PRN For Nausea hydrOXYzine Hcl (HydrOXYzine Hcl) 25 Mg Tablet 25 MG PO TID PRN PRN For Anxiety or Agitation oxyCODONE (oxyCODONE) 10 Mg Tablet 10 MG PO Q4H PRN PRN For Pain Miscellaneous Medications Iron Polysaccharides Complex (Ferrex 150) 150 Mg Capsule 150 MG PO Objective Findings Exam Vital Sign - Last Date Time Temp Pulse Resp B/P Pulse Ox O2 Delivery O2 Flow Rate FiO2 04/07/16 16:15 Supplement Oxygen 04/07/16 13:23 36.8 91 20 124/77 96 2.00 Intake and Output 04/06/16 04/06/16 04/07/16 Cumulative From/Thru 15:00 23:00 07:00 04/01/16 10:11 - 04/07/16 06:06 Intake Total 975 ml 440 ml 64972 ml Output Total 800 ml 1200 ml 15836 ml Balance 175 ml -760 ml -37 ml Intake Oral 640 ml 320 ml 04367 ml IV Total 335 ml 120 ml 3395 ml Packed Cells 300 ml Output Urine Total 800 ml 1200 ml 9450 ml Urine/Stool Mix 400 ml Drainage Total 4100 ml # Voids 1 # Bowel Movements 0 2 General: Alert/Oriented x3, Other (tearful) HEENT: PERRLA, EOMI, Scleral Anicteric Heart: Regular Rate/Rhythm Lungs: Clear to Auscultation Abdomen: Other (massive right abdominal wall hernia now with erythema thought to be secondary to cellulitis, patient constantly rubs this area for relief) Neuro: Cranial Nerve 3-12 Intact, Other (appropriate in responses, recognizes isolation, acknowledges depression, decisional) Extremities: Edema (2+) Skin: Other (diffuse alopecia, pale) Lab/Diagnostics Lab and Imaging results reviewed in detail in EMR. Patient/Family Conference Discussion/Goals of Care Discussion FAMILY UNDERSTANDING OF DISEASE: Patient has difficult time with the concept of no further chemotherapy. She acknowledges she does not want to think of "the end" She acknowledges she is doing this "alone". She has a hard time reaching out and feels that even her sister is unaware of severity of disease. She understands the issue of her immunosuppression compromising ability to clear infection but also potential for never being able to clear her peritonitis due to loculation and continued Pleurx catheter. Reviewed Dr. Winkler's note and recommendation Reviewed to consideration for engaging hospice. DISEASE PROGRESSION/EVIDENCE OF DECLINE: SYMPTOM BURDEN: Abdominal pain is significant issue. Depression social isolation I believe at this point is a bigger pain GOALS: She wants to go home HOPES/WORRIES: She does not want her son to be contacted.. She feels it is his responsibility to seek her out. She does authorize that I speak with her sister Tatiana [phone] and that she would appreciate if her sister understood severity of disease Time spent Total time 65 minutes; >50% face to face with patient and/or family, providing counselling regarding plans and recommendations, and in care coordination with his/her medical teams. I also spent an additional [ ] minutes counseling for advanced care planning with the patient/the patients family/the surrogate decision maker. copies to: Lance Winkler MD; Heide Lowery MD, Deborah A MD Apr 07, 2016 16:55
[2016-04-07] MEDS: 0.9% Sodium Chloride 250 ML IV SCH (19:34)
[2016-04-07 19:53] VITALS: BP 112/73; PULSE 89; RESP 20; O2SAT 95
--- NOTE | 2016-04-07 20:21 | NUR ---
DRESSING P: Pt told me the dressing on her R abdomen is moist. I: Pt stated Wound care would come by today, but since they haven't yet, I passed information onto primary RN, who is going to do a dressing change. E: Patient resting. S: Bed low, 2 rails up. Non skid socks. Call light within reach.
--- NOTE | 2016-04-07 22:45 | NUR ---
dressing change changed dressing to right lower quadrant abd wound. applied mepilex as directed. patient tolerated well
[2016-04-08] MEDS: Sodium Chloride LOK Flush 10 mL Syringe IVFLUSH SCH ×3 (01:54→16:30)
[2016-04-08] MEDS: Cefepime Inj 2,000 MG in Dextrose 5% Minibag Plus 50 ML IV SCH ×2 (01:54→15:47)
[2016-04-08 04:44] VITALS: BP 100/63; PULSE 86; RESP 20; O2SAT 94
[2016-04-08 05:31] LABS: Magnesium 1.3 mg/dL (1.6-2.6)
--- NOTE | 2016-04-08 06:26 | NUR ---
activity patient transfers to bsc with sba. reviewed fall precautions and policy with patient patient agreeable to using her call light.
[2016-04-08] MEDS: Insulin LISPRO 300 Unit/3 mL Inj SUBQ SCH ×4 (08:00→22:00)
[2016-04-08] MEDS: FOLIC ACID PO SCH (08:30)
[2016-04-08] MEDS: CYANOCOBALAMIN PO SCH (08:30)
[2016-04-08] MEDS: POLYSACCHARIDE IRON COMPLEX 150 MG PO SCH (09:01)
[2016-04-08] MEDS: Nystatin 100,000 Unit/Gm 15 Gm Powder TOPICAL SCH ×2 (09:02→23:02)
[2016-04-08 09:53] VITALS: BP 124/71; PULSE 96; RESP 20; O2SAT 95
[2016-04-08] MEDS: 0.9% Sodium Chloride 250 ML IV SCH (12:39)
--- NOTE | 2016-04-08 12:50 | PCM.PALLBR ---
Palliative Care Recommendation 71-year-old woman with malignant ascites related to ovarian cancer, with recurrent infections related to her Pleurx catheter, and now with evidence of probable intra-abdominal abscess secondary to Pseudomonas infection. Palliative medicine consulted to assist in determination of goals of care. Patient thus far remains adamant that she is full code and 'does not want to give up the fight'. Summary of palliative recommendations: -Symptom management (Pain/other) Depression and social isolation-huge issues for patient. Bbelieve she would benefit greatly from hospice intervention and support, but she continues to be uninterested. Ovarian CA- reviewed Dr. Winkler's note that she has failed chemotherapy with few options going forward and the palliative care and hospice support is reasonable. He did, however, leave the door open to possible low-level palliative therapy. She has had a hospice informational visit in the past but has not been able to make the decision to go with hospice without additional support, hopefully from her sister. Attempted to reach her sister by phone today but again failed. We will continue to try while patient remains in the hospital. -DPOA/Advanced Directives/POLST- her sister is DPOAHC. Code status remains FULL for now. -Family/emotional support- palliative will continue to follow and support as able -Spiritual support- she is not interested in magnetic resonance imaging coordinator visit Additional medical diagnoses with primary management by her hospitalist team include: # Abdominal wall cellulitis with abdominal wall abscess and Pseudomonas peritonitis. Two areas of Cellulitis on abdominal wall ,acute on chronic # Infected malignant ascites s/p Pleurx drain now with Pleurx insertion site leak,acute # sepsis due to above,met criteria today due to HR 104, worsening bandemia # Chronic hypoxic respiratory failure, stable. # Normocytic anemia requiring transfusion, recurrent 2 months with mild hypotension # Mild hyponatremia/recurrent low magnesium Chronic issues known prior to admission, present on admission: # history of Loculated ascites, # Stage IIIc ovarian cancer, breast cancer 2006 treated with radiation/lobectomy , BRCA 1 positive - further treatment recs per oncology # Diabetes type 2. Neuropathic pain # Hypothyroidism. # Chronic pain, neuropathic in nature, previously opiate dependent, stable # hyperlipidemia. Hypertension. Obesity. # Depression. stable Problems: End of Life Preferences Full code Goals of Care Patient continues to hope that there is further therapy. Disposition Home with home health Resuscitation Status Resuscitation Status: CPR: Attempt Resuscitation POLST Updates/Changes Artificially Admin Nutrition: No Artifical Nutrition by Tube . Pain: None Symptom management: Dyspnea Total time 35 minutes; >50% face to face with patient, providing counselling regarding plans and recommendations, and in care coordination with her medical teams. copies to: Lance Winkler MD; Heide Lowery MD Palliative Brief Note Date of Service Apr 08, 2016 . Returned to reevaluate patient. Prior to visiting, reviewed her updated records in the EMR in detail and spoke with her bedside nurse. On my arrival, she is sitting up at bedside. Nasal cannula oxygen is warm high on her forehead despite her being dyspneic. She says she is looking forward to going home hopefully later today. Understands that she will be getting long- term IV antibiotics at home. She had no particular questions or concerns otherwise about her visit yesterday with Dr. Benz. Talked about trying to speak with her sister Tatiana by phone- she says once again that she would appreciate our doing that. (Unfortunately, I was again unable to reach her sister by phone and as the voicemail has no identifier, could not leave a message.) On exam, morbidly obese woman sitting in bed. Mild dyspnea. Vital signs noted. Skin pale, warm and dry. Head and neck exam without acute focal findings. Lungs with diminished breath sounds diffusely, particularly at bases. No wheezes. Heart sounds distant and regular. Abdomen obese/distended but nontender. Lower extremities with 3+ pitting edema beyond knees. Labs and imaging studies reviewed. Notes by consultants reviewed. Max Bhagat MD Apr 08, 2016 12:50
[2016-04-08 13:16] VITALS: BP 103/69; PULSE 68; RESP 20; O2SAT 96
--- NOTE | 2016-04-08 14:46 | NUR ---
RECEIVED TC FROM ASHVIN SARAVIA PT'S , RE: POSSIBLE DC TODAY. ASHVIN WILL NEED TO ARRANGE DIRECTOR LABOR STANDARDS AND NURSING SERVICES AT PT'S DC. TT JACK SETTER WHO INDICATED PT WOULD BE DC'D TODAY. ADVISED JACK SETTER TO CALL ASHVIN TO COORDINATE DC.
--- NOTE | 2016-04-08 15:05 | NUR ---
Transfer of care Care of pt. transferred to Sushma and Iris RN. Both RNs at bedside for transfer of care. Pt. comfortable and has no questions at this time. Anxious to go home once IV abx set up and she is discharged.
--- NOTE | 2016-04-08 15:44 | NUR ---
Social Work Readiness for Discharge: JHON spoke to [employer] repairer Marta to determine benefits approval for abx. Marta states that patient approved and infusion supplies available for delivery tonight. Patient to also resume services with [facility] discharge[facility] and on [facility] for coordination of HHC services at discharge. Patient active with [facility] program and mental health case manager is Kathleen Griffith, . SW spoke with mental health case manager Kathleen who states that caregiver unavailable tonight at this time. Caregiver to be coordinated tomorrow for discharge transfer tomorrow. Patient aware and in agreement. PLAN: Home with caregiver support via [facility]. Continued HHC services via [facility] and [facility] [employer] benefits approved for abx at discharge. HHC and infusion services on standby until caregiver able to be established tomorrow. SW to follow. Helga DE LA GARZA
--- NOTE | 2016-04-08 15:58 | PCM.PNMED ---
Subjective Date of Service Apr 08, 2016 Subjective denies any new issues/complaints Exam Vital Signs Vital Sign - Last Date Time Temp Pulse Resp B/P Pulse Ox O2 Delivery O2 Flow Rate FiO2 04/08/16 15:18 Supplement Oxygen 04/08/16 13:16 36.8 68 20 103/69 96 2.00 Intake and Output 04/07/16 04/07/16 04/08/16 Cumulative From/Thru 15:00 23:00 07:00 04/01/16 10:11 - 04/08/16 05:48 Intake Total 1600 ml 800 ml 80544 ml Output Total 1400 ml 1550 ml 64924 ml Balance 200 ml -750 ml -587 ml Intake Oral 1600 ml 800 ml 96199 ml IV Total 3395 ml Packed Cells 300 ml Output Urine Total 1400 ml 1550 ml 89999 ml Urine/Stool Mix 400 ml Drainage Total 4100 ml # Voids 1 # Bowel Movements 0 2 Exam General: Alert, Cooperative, No Acute Distress Head: Normal Eyes: Scleral Anicteric Mouth: Mucous Membr Moist/Why Neck: Supple Chest & Lungs: Chest Wall Normal, Clear to auscultation & percussion, Other ( Port-A-Cath in right upper chest) Cardiovascular: Regular Rate/Rhythm Abdomen: Non-tender, Soft, Other (Peritoneal drain Left) Extremities: No cyanosis/clubbing. 1+ edema in LE bilat Neurological: Grossly Neurologically Intact, Normal Speech IVs and Medications Medications Reviewed: Medications were reviewed in detail Lab and Diagnostics Result Diagram: 04/06/16 0548 04/08/16 0500 X-Rays, CTs and MRIs PROCEDURE: X-RAY CATHETER PATENCY STUDY ([id number]) INDICATIONS: catheter blocked? TECHNIQUE: Iodinated contrast was injected through the patient's existing peritoneal catheter, with real-time fluoroscopy performed. COMPARISON: [facility], XA, PLEURAL CATH PLACEMENT (P), 01/12/2016 , 10:58. FINDINGS: Isovue 300 was injected via the pleura extraperitoneal catheter which demonstrates normal patency and there is free spillage of contrast media into the peritoneum along multiple side ports as well as the end of the catheter. IMPRESSION: Patent Pleurx peritoneal catheter. Dictated by: Cedric Werner RRA Interpreted: Logan Strong MD on 04/01/2016 at 15:53 PROCEDURE: CT ABDOMEN AND PELVIS WITH CONTRAST ([id number]) INDICATIONS: abdominal wall cellulitis,r/o intrabd infection TECHNIQUE: After the administration of oral and intravenous contrast, 5 mm thick sections acquired from the diaphragms to the symphysis. 5 mm thick coronal and sagittal reformats were performed. For radiation dose reduction, the following was used : automated exposure control, adjustment of mA and/or kV according to patient size. COMPARISON: [facility], CT, CT CHEST ABD PELVIS W CON, 01/10/2016, 12:28. [facility], CR, XR CATHETER PATENCY STUDY, 04/01/2016, 14: 50. [facility], CT, CT ANGIO CHEST PE, 02/03/2016, 15:12. [facility], CR, XR CHEST 1VW (PORTABLE), 04/04/2016, 11:07. [facility], CT, CT ABD PELVIS W CON, 02/03/2016, 15:12. FINDINGS: Image quality: Excellent. ABDOMEN: Lung bases: Small bilateral pleural effusions. Bibasilar consolidations and/or atelectasis are present. Heart size is normal. Solid organs: Liver and spleen are normal in size and enhancement. Gallbladder is contracted. Biliary system is non-dilated. Pancreas enhances normally. There is a 4.2 x 2.8 cm left adrenal mass, unchanged in size. Kidneys are normal in size and enhancement, without hydronephrosis. Peritoneum and bowel: There is a large loculated fluid collection with pockets of air in the anterior abdomen measuring 20.8 cm in cephalocaudal x 30.4 cm transverse x 21.1 cm anterior-posterior. The collection has increased in size. There is subtle rim enhancement along the pleural collection. A catheter is seen within the collection. Stomach, small bowel, and colon loops are normal in caliber and wall thickness. Moderate amount of stool in colon. No free fluid or air. Nodes and vessels: There is soft tissue edema and skin thickening in the anterior abdominal wall. No retroperitoneal or mesenteric adenopathy. Aorta and inferior vena cava are normal in caliber. Miscellaneous: No ventral hernias. PELVIS: Genitourinary: Bladder wall thickness is normal. Miscellaneous: No inguinal hernias or adenopathy. Bones: No suspicious bony lesions. No vertebral body compression fractures. IMPRESSION: 1. A large loculated fluid collection with pockets of air in the anterior abdomen. There is a catheter within the collection. This is suspicious for a large abscess/infected malignant ascites. 2. Soft tissue edema and skin thickening of the anterior abdominal wall consistent with cellulitis. 3. Bibasilar consolidations/atelectasis with small pleural effusions. 4. Stable left adrenal mass. The result was discussed with Dr. Means on 04/04/2016 at 1530 hours. Dictated by: Logan Strong M.D. on 04/04/2016 at 15:05 Assessment & Plan 65-year-old female, on chemotherapy and related leukopenia sent by cancer Center complaining of pain and redness around left peritoneal drain-recurrent and right abdomen skin-new onset # Abdominal wall cellulitis with abdominal wall abscess and Pseudomonas peritonitis. Two areas of Cellulitis on abdominal wall ,acute on chronic - Initially treated with Vanco , Clinda and meropenem. - appreciate ID consult. will f/u w/ recs. - home infusion orders for two weeks of cefepime and the dose would be 2 g IV q.12 h. to be continued at least through April 21. - Weekly labs will be checked and sent to both Dr. Winkler and Dr. Porter # Infected malignant ascites s/p Pleurx drain now with Pleurx insertion site leak,acute - catheter patency study XR done 04/01 and is patent, - drained 2.0 L on 04/03 - further plan as noted above # sepsis due to above,met criteria today due to HR 104, worsening bandemia - clinically improved - plan as noted above # Chronic hypoxic respiratory failure, stable. - c/w home O2 2 L # Normocytic anemia requiring transfusion, recurrent 2 months with mild hypotension - transfused 1 U RBC # Acute hypomagnesemia - Replete and f/u # Goals of care - appreciate palliative care consult. will f/u w/ recs Chronic issues known prior to admission, present on admission: # history of Loculated ascites, Bacterial enterococcus peritonitis, treated with daptomycin January 2016 # Stage IIIc ovarian cancer, breast cancer 2006 treated with radiation/lobectomy , BRCA 1 positive - further treatment recs per oncology # Diabetes type 2. Neuropathic pain - c/w current coverage # Hypothyroidism. - c/w Levothyroxine # Chronic pain, neuropathic in nature, previously opiate dependent, stable # hyperlipidemia. Hypertension. Obesity. - c/w home meds # Depression. stable Dispo: home in am pending setup of home infusion and caregiver availability [employer] Mechanical Devices: Intermittant Pneumatic CD Resuscitation Status: CPR: Attempt Resuscitation Time spent 25 min Tavo Gordon Apr 08, 2016 15:58
[2016-04-08] MEDS ORDERED: Magnesium Sulf 4 Gm/100 mL H2O 4 GM in IV Premix 1 EACH IV ONE (16:00)
--- NOTE | 2016-04-08 17:07 | NUR ---
Wound care Pt seen at bedside for dressing changes, dressings removed from Plurex drain left side and abdomen right lower quadrant, cleaned weeping skin openings with saline and gauze. [place] Aquacell ag dressing cut in half and placed over the drain site and small 1 cm x 1 cm x 0.2 cm wound below drain exit site. Mepilex and tape placed over open skin at right lower quadrant. These dressings can be changed q 48 hrs by home health on discharge.
--- NOTE | 2016-04-08 18:08 | NUR ---
Activity Pt up to BSC x2, continues with SOB, on 2L via NC, states she always has SOB and cannot lie flat.
--- NOTE | 2016-04-08 19:34 | NUR ---
ACTIVITY Dressing to right upper quadrant dry & intact. Dressing to pleurex drain intact and shows some drainage (penmarked it as it seems to be larger since assessment). Pt vocalizes pain while changing position. States 7/10 with no change after 1 hr of oxycodone administration. Pt ambulates to the bedside commode independently. Pt eating well, and is looking forward to disharge tomorrow. Care continues
[2016-04-08 20:02] VITALS: BP 129/58; PULSE 95; RESP 20; O2SAT 94
[2016-04-09] MEDS: Sodium Chloride LOK Flush 10 mL Syringe IVFLUSH SCH ×2 (00:30→08:30)
[2016-04-09] MEDS: Cefepime Inj 2,000 MG in Dextrose 5% Minibag Plus 50 ML IV SCH (03:23)
[2016-04-09 05:40] VITALS: BP 115/69; PULSE 72; RESP 20; O2SAT 96
[2016-04-09 06:32] LABS: Mean Corpuscular Hemoglobin 26.4 pg (27.0-35.0); Mean Corpuscular Volume 93.5 fL (81-100)
[2016-04-09] MEDS: Insulin LISPRO 300 Unit/3 mL Inj SUBQ SCH ×2 (07:34→12:00)
[2016-04-09] MEDS: POLYSACCHARIDE IRON COMPLEX 150 MG PO SCH (07:35)
[2016-04-09] MEDS: Nystatin 100,000 Unit/Gm 15 Gm Powder TOPICAL SCH (07:35)
[2016-04-09 11:29] VITALS: BP 120/73; PULSE 91; RESP 18; O2SAT 97
--- NOTE | 2016-04-09 12:49 | NUR ---
Pain/mentation patient is alert and oriented X3. able to make needs known. stable vital signs. continuous on 2L oxygen via nasal cannula. stable blood sugars so far 124 and 128. Independent to SBA for mobility. patient up with PT today with four wheel walker. patient is anxious to go home today. [facility] living aware. Left abdomen dressing changed yesterday by Wound care nurse per patient report. right chest port dressing changed today by IV therapy. c/o pain to left abdomen 09/23 and PRN pain medication given with not much change per patient with pain still 08/23. patient is packing her belongings and states," i am excited to go home and i am fine.'
--- NOTE | 2016-04-09 13:41 | PCM.DIMED ---
Discharge Instructions Date of Service Apr 09, 2016 Dates of Hospitalization Apr 01, 2016 at 15:00 Discharge Diagnosis Discharge Diagnosis Peritonitis with Pseudomonas Diet Heart Healthy Activity No restrictions (May resume usual activities gradually as tolerated. Do not attempt stairs without assistance.) Call your provider Fever or Chills, Shortness of breath, Bleeding, Chest pain, Vomitting, Excessive diarrhea, Weakness (unilateral) Patient Instructions Follow-up Provider: Heide Lowery MD Follow-up with PCP in: 1 week Provider: Lance Winkler MD Follow-up in: 1 week Soto Farr MD Apr 09, 2016 13:41
--- NOTE | 2016-04-09 13:51 | NUR ---
Faxed [facility] transport form to [facility] for ride to get patient home for infusion teaching. Updated [employer]PERATOR
--- NOTE | 2016-04-09 13:53 | NUR ---
Social Work Discharge: SW met with patient at bedside to discuss discharge plan. Patient approved for IV abx via [facility] for [facility] today at 2:30-30m today. Patient also current with [facility] to continue care services upon discharge. Patient ambulating 125ft with therapy and recommendations for home with HHC and family support. Patient states neighbor Sheldon to be available today to assist with care needs and to be home for infusion teaching and stair assistance. [facility] caregiver unavailable until Tuesday. Patient states significant other to assist with care needs tonight in addition. Furthermore, patient states sister to be available tomorrow for additional care and support. Patient states being capable of being taught and trained for infusion teaching. Patient states friend Jacqueline, is an Rn and also available for infusion teaching. SW contacted Jacqueline and left voice mail messages to discuss support. Patient has additional support and neighbor to assist with needs today. 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 No other needs identified at this time. SW to follow. PLAN: Home with [facility] and continued HHC services via [facility]. Transport via [employer]. Helga DE LA GARZA
--- NOTE | 2016-04-09 15:10 | NUR ---
Discharge Doctor at bed side prior to discharging patient. new orders received r/t discharge. Reviewed discharge paper work and ordered medications per doctor. written Care notes provided and handed to patient. patient agrees and understood discharge instructions. patient accompanied by nursing staff approx [phone] via wheel chair. Social work called [employer]. O2 2L nasal cannula stable. stable vital signs.
--- NOTE | 2016-04-10 00:44 | PCM.DC.MED ---
Discharge Summary Date of Service Apr 09, 2016 Dates of Hospitalization Date of Hospital Admission Apr 01, 2016 at 15:00 Date of Discharge: Apr 09, 2016 Providers: Admitting Physician: Nell Rodriguez MD Primary Care Physician: Heide Lowery MD Attending Physician: Nell Rodriguez MD Diagnosis at Time of Discharge Diagnosis at Time of Discharge Peritonitis with Pseudomonas Procedures XRay, CTs & MRIs PROCEDURE: X-RAY CATHETER PATENCY STUDY ([id number]) INDICATIONS: catheter blocked? TECHNIQUE: Iodinated contrast was injected through the patient's existing peritoneal catheter, with real-time fluoroscopy performed. COMPARISON: [facility], XA, PLEURAL CATH PLACEMENT (P), 01/12/2016 , 10:58. FINDINGS: Isovue 300 was injected via the pleura extraperitoneal catheter which demonstrates normal patency and there is free spillage of contrast media into the peritoneum along multiple side ports as well as the end of the catheter. IMPRESSION: Patent Pleurx peritoneal catheter. Dictated by: Cedric Werner RR Interpreted: Logan Strong MD on 04/01/2016 at 15:53 PROCEDURE: CT ABDOMEN AND PELVIS WITH CONTRAST ([id number]) INDICATIONS: abdominal wall cellulitis,r/o intrabd infection TECHNIQUE: After the administration of oral and intravenous contrast, 5 mm thick sections acquired from the diaphragms to the symphysis. 5 mm thick coronal and sagittal reformats were performed. For radiation dose reduction, the following was used : automated exposure control, adjustment of mA and/or kV according to patient size. COMPARISON: [facility], CT, CT CHEST ABD PELVIS W CON, 01/10/2016, 12:28. [facility], CR, XR CATHETER PATENCY STUDY, 04/01/2016, 14: 50. [facility], CT, CT ANGIO CHEST PE, 02/03/2016, 15:12. [facility], CR, XR CHEST 1VW (PORTABLE), 04/04/2016, 11:07. [facility], CT, CT ABD PELVIS W CON, 02/03/2016, 15:12. FINDINGS: Image quality: Excellent. ABDOMEN: Lung bases: Small bilateral pleural effusions. Bibasilar consolidations and/or atelectasis are present. Heart size is normal. Solid organs: Liver and spleen are normal in size and enhancement. Gallbladder is contracted. Biliary system is non-dilated. Pancreas enhances normally. There is a 4.2 x 2.8 cm left adrenal mass, unchanged in size. Kidneys are normal in size and enhancement, without hydronephrosis. Peritoneum and bowel: There is a large loculated fluid collection with pockets of air in the anterior abdomen measuring 20.8 cm in cephalocaudal x 30.4 cm transverse x 21.1 cm anterior-posterior. The collection has increased in size. There is subtle rim enhancement along the pleural collection. A catheter is seen within the collection. Stomach, small bowel, and colon loops are normal in caliber and wall thickness. Moderate amount of stool in colon. No free fluid or air. Nodes and vessels: There is soft tissue edema and skin thickening in the anterior abdominal wall. No retroperitoneal or mesenteric adenopathy. Aorta and inferior vena cava are normal in caliber. Miscellaneous: No ventral hernias. PELVIS: Genitourinary: Bladder wall thickness is normal. Miscellaneous: No inguinal hernias or adenopathy. Bones: No suspicious bony lesions. No vertebral body compression fractures. IMPRESSION: 1. A large loculated fluid collection with pockets of air in the anterior abdomen. There is a catheter within the collection. This is suspicious for a large abscess/infected malignant ascites. 2. Soft tissue edema and skin thickening of the anterior abdominal wall consistent with cellulitis. 3. Bibasilar consolidations/atelectasis with small pleural effusions. 4. Stable left adrenal mass. The result was discussed with Dr. Means on 04/04/2016 at 1530 hours. Dictated by: Logan Strong M.D. on 04/04/2016 at 15:05 Brief History 65-year-old patient followed by -initially with diagnosis of triple negative breast CA personally 12 years ago then in August 2013 was diagnosed with ovarian CVA age 5 treated with surgery and chemotherapy. She was diagnosed with BRCA 1 just prior to her ovarian diagnosis after finding out about some of her family history. She did fairly well after her initial treatment in 2013 but this fall began developing ascites with increasing CA 125. She has pain and dyspnea with increasing ascites and ended up having a Pleurx catheter placed. She has been draining 700 mL off every few days. She has been hospitalized a number of times for peritonitis since placement. Recently seen by Dr. Porter to manage pseudomonas peritonitis and now a cellulitis on her distended abdominal wall. Seen by Dr. Winkler during this hospitalization with concern about immunosuppression in the light of her recurrent infections. His recommendation is to discontinue her chemotherapy at this time. It is noted that its goal was to control her ascites which it has not been able to do. Her tumor markers have decreased with this therapy. Patient was admitted to the hospital service for further evaluation and treatment. Hospital Course 65-year-old female, on chemotherapy and related leukopenia sent by cancer Center complaining of pain and redness around left peritoneal drain-recurrent and right abdomen skin-new onset # Abdominal wall cellulitis with abdominal wall abscess and Pseudomonas peritonitis. Two areas of Cellulitis on abdominal wall ,acute on chronic - Initially treated with Vanco , Clinda and meropenem. - appreciate ID consult. will f/u w/ recs. - home infusion orders for two weeks of cefepime and the dose would be 2 g IV q.12 h. to be continued at least through April 21. - Weekly labs will be checked and sent to both Dr. Winkler and Dr. Porter # Infected malignant ascites s/p Pleurx drain now with Pleurx insertion site leak,acute - catheter patency study XR done 04/01 and is patent, - drained 2.0 L on 04/03 - further plan as noted above # sepsis due to above,met criteria today due to HR 104, worsening bandemia - clinically improved - plan as noted above # Chronic hypoxic respiratory failure, stable. - c/w home O2 2 L # Normocytic anemia requiring transfusion, recurrent 2 months with mild hypotension - transfused 1 U RBC # Acute hypomagnesemia - Replete and f/u # Goals of care - appreciate palliative care consult. will f/u w/ recs Chronic issues known prior to admission, present on admission: # history of Loculated ascites, Bacterial enterococcus peritonitis, treated with daptomycin January 2016 # Stage IIIc ovarian cancer, breast cancer 2005 treated with radiation/lobectomy , BRCA 1 positive - further treatment recs per oncology # Diabetes type 2. Neuropathic pain - c/w current coverage # Hypothyroidism. - c/w Levothyroxine # Chronic pain, neuropathic in nature, previously opiate dependent, stable # hyperlipidemia. Hypertension. Obesity. - c/w home meds # Depression. stable Disposition: the patient is stable for discharge today and very much wants to go home. She was assessed by physical therapy and can do steps with assistance without any difficulty. Physical therapy believes that she can navigate 13 steps at home without problem as long as she has someone assisting her. Exam Vital Signs (Last) Date Time Temp Pulse Resp B/P Pulse Ox O2 Delivery O2 Flow Rate FiO2 04/09/16 11:29 36.8 91 18 120/73 97 Nasal Cannula 2.00 Exam General: Patient is sitting up in a bedside chair, dressed and waiting to be discharged HEENT: Head is atraumatic and normocephalic. Eyes: Pupils are equally round and reactive to light and accommodation. Extraocular muscles are intact. Sclera are white, anicteric. Subconjunctival mucosa is pink. Ears and nose are unremarkable. Oropharynx: There is no mucosal lesions, there is no thrush, there is no pharyngitis. Neck: Is supple, there are no nodes, or masses or tenderness. Chest: Is clear to auscultation and percussion. There are no rales, rhonchi, wheezes or rubs. Heart: Rate, rhythm is regular. There is no new murmur, rub or gallop. Abdomen: Is morbidly obese and distended with a large hernia and fluid wave shift. Bowel sounds are present. Abdomen is nontender, with no organomegaly or masses appreciated. Extremities: Are symmetrical and well perfused. There is no edema, there is no cellulitis, no rash. Neurologic: There are no focal neurological deficits. Cranial nerves II through XII are intact. There are no sensory or motor deficits. Psychiatric: Patients mood is calm and shows no sign of agitation. Genital: Deferred Rectal: Deferred Test 04/01/16 10:56 04/01/16 13:58 04/03/16 05:00 04/04/16 15:41 Reticulocyte Count,Calculated 3.5% (0.6-2.6) Lactic Acid Level 1.7mmol/L (0.4-2.0) Troponin T 0.010ug/L (0.0-0.011) Urine Color Yellow (YELLOW) Urine Appearance Hazy (CLEAR,HAZY) Urine pH 6.0 (5.0-8.0) Urine Specific [place] 1.020 (1.003-1.035) Urine Protein Tracemg/dL (NEG,TRACE) Urine Glucose (UA) Negativemg/dL (NEGATIVE) Urine Ketones Negativemg/dL (NEGATIVE) Urine Occult Blood Negative (NEGATIVE) Urine Nitrite Negative (NEGATIVE) Urine Bilirubin Negative (NEGATIVE) Urine Urobilinogen Normalmg/dL (NORMAL) Urine Leukocyte Esterase Negative (NEGATIVE) Urine RBC 0-2/hpf (0-2) Urine WBC 0-5/hpf (0-5) Urine Epithelial Cells Occasional/hpf (NONE-MOD) Urine Crystals None seen (NONE SEEN) Urine Bacteria Few/hpf (NONE-FEW) Urine Hyaline Casts None/lpf (NONE) Urine Granular Casts Occasional (NONE SEEN) Urine Waxy Casts None seen (NONE SEEN) Urine Red Blood Cell Casts None seen (NONE SEEN) Urine White Blood Cell Casts None seen (NONE SEEN) Urine Mucus None seen (None Seen) Urine Trichomonas None seen (NONE SEEN) Urine Yeast Few (NONE SEEN) Urinalysis Comment None Urine Culture Reflexed Not indicated Phosphorus Level 3.4mg/dL (2.5-4.9) Body Fluid Source Peritoneal fluid Body Fluid Color Straw (Clear) Body Fluid Appearance Turbid Body Fluid WBC 488704/mm3 Body Fluid RBC 950/mm3 Body Fluid Polynuclear WBCs 99% Body Fluid Lymphocytes 1% Body Fluid Monocytes 0% Body Fluid Eosinophils 0% Body Fluid Basophils 0% Test 04/05/16 04:45 04/06/16 05:48 04/09/16 06:00 Metamyelocytes % 1% (0-0) Myelocytes % 1% (0-0) Total Bilirubin 0.4mg/dL (0.0-1.2) Aspartate Amino Transf (AST/SGOT) 15U/L (0-50) Alanine Aminotransferase (ALT/SGPT) 15U/L (0-32) Alkaline Phosphatase 93U/L (25-165) Total Protein 5.3g/dL (6.4-8.4) Albumin 2.1g/dL (3.4-5.0) Procalcitonin 0.18ng/mL (0.00-0.08) Neutrophils (%) (Auto) 67% (40-74) Lymphocytes (%) (Auto) 15% (14-46) Monocytes (%) (Auto) 12% (4-12) Eosinophils (%) (Auto) 1% (0-5) Basophils (%) (Auto) 0% (0-3) Band Neutrophils % 5% (1-5) Nucleated Red Blood Cells 1/100 WBC (0-24) Hematology Comments Rbc White Blood Count 12.4th/mm3 (3.8-10.1) Red Blood Count 2.92mil/mm3 (3.90-5.20) Hemoglobin 7.7g/dL (12.0-15.6) Hematocrit 27.3% (35.0-46.0) Mean Corpuscular Volume 93.5fL (81-100) Mean Corpuscular Hemoglobin 26.4pg (27.0-35.0) Mean Corpuscular Hemoglobin Concent 28.2% (32.0-37.0) Red Cell Distribution Width 20.9% (12.3-15.4) Platelet Count 262bil/L (150-400) Sodium Level 139mEq/L (134-144) Potassium Level 4.1mEq/L (3.5-5.2) Chloride Level 96mEq/L (97-108) Carbon Dioxide Level 33mmol/L (18-29) Blood Urea Nitrogen 8mg/dL (8-27) Creatinine 0.58mg/dL (0.57-1.00) Estimat Glomerular Filtration Rate 150mL/min (>59) Glucose Level 128mg/dL (60-99) Calcium Level 8.1mg/dL (8.5-10.1) Magnesium Level 2.0mg/dL (1.6-2.6) Discharge Medications Discharge Medications Aspirin (Aspirin) 81 Mg Tablet 81 MG PO DAILY (Reported) Atorvastatin Calcium (Atorvastatin Calcium) 40 Mg Tablet 40 MG PO HS (Reported) Cholecalciferol (Vitamin D3) (Vitamin D) 1,000 Unit Capsule 2,000 UNIT PO DAILY (Reported) Cyanocobalamin/Folic Acid (Vitamin F44-Gmhoa Acid Tablet) 1 Each Tablet 1 EACH PO DAILY (Reported) Doxepin (Doxepin) 50 Mg Capsule 2 CAP PO HS (Reported) Fluoxetine (Fluoxetine) 40 Mg Capsule 40 MG PO DAILY (Reported) Levothyroxine (Levothyroxine) 100 Mcg Tablet 100 MCG PO DAILY (Reported) Pregabalin (Lyrica) 150 Mg Capsule 150 MG PO TID (Reported) As needed Albuterol HFA (Proair HFA) 8.5 Gm Hfa.aer.ad 2 PUFFS IH Q4 PRN PRN For Shortness of Breath (Reported) Clotrimazole (Athlete's Foot) 1 % Cream..g. 1 APPLIC TOPICAL TID PRN PRN dry cracking skin on feet (Reported) Diclofenac Sodium (Diclofenac Sodium) 1 % Gel..gram. 1 APPLIC TOP PRN PRN PRN KNEE PAIN (Reported) Ondansetron ODT (Ondansetron ODT) 4 Mg Tab.rapdis 4 MG PO q8hr PRN PRN For Nausea (Reported) hydrOXYzine Hcl (HydrOXYzine Hcl) 25 Mg Tablet 25 MG PO TID PRN PRN For Anxiety or Agitation (Reported) oxyCODONE (oxyCODONE) 10 Mg Tablet 10 MG PO Q4H PRN PRN For Pain (Reported) Miscellaneous Medications Iron Polysaccharides Complex (Ferrex 150) 150 Mg Capsule 150 MG PO (Reported) Followup Plan Disposition: The patient is being discharged home. Discharge Diet: Heart Healthy Discharge Activity: No restrictions (May resume usual activities gradually as tolerated. Do not attempt stairs without assistance.) Follow-up Provider: Heide Lowery MD Follow-up with PCP in: 1 week Provider: Lance Winkler MD Follow-up in: 1 week Time spent Time spent on discharging this patient was greater than 35 minutes, over half of which was involved in counseling and coordination of care. Soto Farr MD Apr 10, 2016 00:44
== END 2016-04-09 14:18 | disposition home health service (06) | DRG 919 ==
LOC: SED 10:19 → OSC 15:00
PROVIDERS: ADMIT Urology; ATTEND Urology
PROC: 30233N1 Transfusion of Nonautologous Red Blood Cells into Peripheral Vein, Percutaneous Approach (ICD-10-PCS; principal; 2016-04-01)
DX: T85.79XA Infection and inflammatory reaction due to other internal prosthetic devices, implants and grafts, initial encounter (principal); K65.8 Other peritonitis; R18.0 Malignant ascites; A41.9 Sepsis, unspecified organism; J96.11 Chronic respiratory failure with hypoxia; C79.60 Secondary malignant neoplasm of unspecified ovary; Z68.41 Body mass index [BMI] 40.0-44.9, adult; L03.311 Cellulitis of abdominal wall; L02.211 Cutaneous abscess of abdominal wall; T85.618A Breakdown (mechanical) of other specified internal prosthetic devices, implants and grafts, initial encounter; E11.40 Type 2 diabetes mellitus with diabetic neuropathy, unspecified; B96.5 Pseudomonas (aeruginosa) (mallei) (pseudomallei) as the cause of diseases classified elsewhere; T85.638A Leakage of other specified internal prosthetic devices, implants and grafts, initial encounter; I10 Essential (primary) hypertension; E03.9 Hypothyroidism, unspecified; B37.2 Candidiasis of skin and nail; E83.42 Hypomagnesemia; D64.9 Anemia, unspecified; E78.5 Hyperlipidemia, unspecified; G89.29 Other chronic pain; E66.9 Obesity, unspecified; F32.9 Major depressive disorder, single episode, unspecified; Z87.891 Personal history of nicotine dependence; Z79.84 Long term (current) use of oral hypoglycemic drugs; Z79.82 Long term (current) use of aspirin; Z85.3 Personal history of malignant neoplasm of breast

== ENCOUNTER 2016-04-15 11:54 | Inpatient (IN) | payer OTHER, MEDICAID ==
[~2016-04-15] VITALS: Ht 161.3 cm; Wt 109.6 kg
[~2016-04-15 11:54] MED LIST changes: +ATOR40TA69 PO; -CIPR-232 PO; +IRON150C6 PO; -METF500T4 PO; +OXYC10TA8 PO; -OXYC5TAB72 PO
[2016-04-15] MEDS ORDERED: Ondansetron 2 mg/mL 2 mL Inj IVPUSH PRN (13:05)
[2016-04-15] MEDS ORDERED: Alum-Mag Hydrox-Simeth 30 mL Suspension PO PRN (13:05)
[2016-04-15] MEDS ORDERED: Polyethylene Glycol (PEG) 17 Gm Powder PO PRN (13:05)
--- NOTE | 2016-04-15 13:37 | NUR ---
Admit: Pt to floor at approx 1230. Pt able to transfer self to bed with assist. PAC accessed before arrival. Pt helped into gown, and to BSC. Small bm noted. Bandage to lower abdomen and Pleurx drain in place. Orders received from Oncology, awaiting Hospitalist to consult. Pt on 2L oxygen. Report given to Primary RN Sushma Palacios.
--- NOTE | 2016-04-15 14:08 | CONS ---
[address] [address] CONSULTATION REPORT PATIENT: CORIE RAMIREZ : 1950 MR#: [id number] ADMIT: 04/15/2016 JOB ID: [id number] DATE OF SERVICE: 04/15/2016 CHIEF COMPLAINT AND IDENTIFICATION: Dr. Winkler and Dr. Farr asked me to see this woman regarding her right lower quadrant wounds specifically, and her skin integrity and overall situation in general. HISTORY OF PRESENT ILLNESS: A 65-year-old woman with a history of stage IV ovarian cancer. Not a lot of tumor burden right now, but she has had a problem what chronic ascites that has required Pleurx catheter placement. She has had some trouble with infections in this PleurX catheter but these have been addressed in the past. Her situation is also complicated by her morbid obesity, her ventral hernia on the right lower abdomen from her previous surgery, and her social situation where she lives alone with her cats, without a lot of resources from family and friends. She was recently in the hospital between April 01 and April 09, treated with vancomycin, clindamycin, and meropenem for abdominal wall cellulitis and Pseudomonas peritonitis with sepsis which improved. At that time she was also seen by Palliative Care. I spoke with the patient today regarding her situation. See below for our discussion. PHYSICAL EXAMINATION: Vital signs are pending. She is tearful. She has a large pannus. On the left upper quadrant she has a PleurX catheter with some surrounding cellulitis versus a chronic induration, no purulence. Her right lower quadrant skin integrity has two circular lesions that are approximately 2 cm in diameter with superficial skin breakdown. There is a great deal of blanching erythema consistent with either cellulitis or simply stress on the skin. There is weeping from these central areas which I believe is subcutaneous edema weeping out rather than an ascitic leak through the skin. LABORATORY DATA: White count is 14.5, hematocrit is 29. She has metamyelocytes and myelocytes. Chemistry shows a low serum iron, low TIBC consistent with mixed anemia of chronic disease and iron deficiency, although her serum ferritin is 821. Her albumin is only 2.5. IMAGING: I have reviewed her CT from April 04, 2016. IMPRESSION/PLAN: I had a discussion with the patient regarding the fact that she does not have a good solution to this problem. She has impending skin breakdown in the right lower quadrant by her hernia and if this opens up she will have a tremendous ascitic leak that will be impossible to be surgically repaired or to be controlled with wound care. We discussed the relative importance for her of being out of the hospital versus further treatment. I discussed her case with Dr. Winkler and neither one of us sees any way that she will ever be a candidate for further chemotherapy. She and I have discussed whether she has ever entertained the idea of hospice and she tells me that Dr. Lowery, her PCP, has brought it up but that she did not want to go that route just yet. I have encouraged her to consider how important it is for her to be out of the hospital and/or at her own home. My suggestion is that during this hospitalization we have wound care see her, try to maximize her skin integrity to maximize the time she will have before this breaks down, but also get her set up with hospice to help her be at home. I will continue to follow her while she is in the hospital.
[2016-04-15 14:15] VITALS: BP 141/82; PULSE 88; RESP 16
[2016-04-15 15:11] LABS: BASOPHILS % (AUTO) 0.2 % (0-3)
[2016-04-15 15:31] LABS: EOSINOPHILS % (AUTO) 0.2 % (0-5); MONOCYTES % (AUTO) 6.7 % (4-12); NEUTROPHILS % (AUTO) 79.6 % (40-74); Platelet Count 212 bil/L (150-400)
[2016-04-15 15:34] LABS: INR 0.99 ratio
[2016-04-15 15:43] LABS: Magnesium 1.4 mg/dL (1.6-2.6)
[2016-04-15] MEDS ORDERED: HYDROmorphone 1 mg/mL Inj IVPUSH PRN (16:00)
--- NOTE | 2016-04-15 16:30 | NUR ---
Palliative Care MOUNTER Note36:30PM This creative services writer learned from PC provider, Dr. Benz, that pt. may be hospice appropriate due to advanced disease. Per Dr. Benz, pt. is struggling with this reality. This creative services writer called [facility] to make them aware that there may be a formal referral placed in the coming days. As of now, no Hospice informational visit has been scheduled for pt./family. FREDERIC Daly, [facility] Palliative Care Services
--- NOTE | 2016-04-15 17:41 | NUR ---
Wound Care Wound evaluation orders received, pt seen at bedside. A 65-year-old woman with a history of stage IV ovarian cancer,patient was recently discharged from [facility] on 04/09/16. Area at the right lower quadrant of her abdomen has broken down significantly since her last admission, It is draining moderate amounts of serous fluid from an eruptive looking ulceration that is approximately 7 cm x 6 cms with a necrotic appearing covering that I am reluctant to probe or disturb. A large fistula bag was placed and connected to a [place] bag, this did not terri to leak and may be a fix for now. Plurex catheter wound is normal in appearance, she does have a small ulceration below the catheter which is 1 cm x 1 cm, this is windowed with a thick piece of duoderm and a 2x2 gauze placed for absorption over the window. Will work with other care team members to try to maintain skin integrity as best we can given the impending possibilities.
[2016-04-15 18:28] LABS: APPEARANCE,URINE HAZY (CLEAR,HAZY); COLOR,URINE YELLOW (YELLOW); OCCULT BLOOD,URINE TRACE (NEGATIVE); PH,URINE 7.5 (5.0-8.0); UROBILINOGEN,URINE NORMAL (NORMAL)
[2016-04-15 18:33] VITALS: BP 127/70; PULSE 85; RESP 16
--- NOTE | 2016-04-15 18:49 | HP ---
[address] [address] HISTORY AND PHYSICAL PATIENT: CORIE RAMIREZ : 1950 MR#: [id number] ADMIT: 04/15/2016 JOB ID: [id number] April 15, 2016. HISTORY OF PRESENT ILLNESS: This patient is being kindly admitted by Dr. Farr of the hospitalist service for management of a growing ulcerated and necrotic area of the right lower abdominal wall which is likely to break down in the next few days in the setting of malignant and infected ascites, ovarian cancer relapsed, and indwelling PleurX catheter for daily drainage of ascites. The patient has been hospitalized multiple times for infected malignant ascites and now has a new problem in developing a necrotic wound in the right lower abdominal wall in an area where the abdominal wall is extremely thin due to long-term herniation. This patient was evaluated by Dr. Kuhn today of surgery who felt that there is no surgical intervention possible, but that she needs wound care and evaluation for how to best manage this progressive lesion. She will also be consulted on by wound care. DIAGNOSES: 1. Multiple recent hospitalizations for peritonitis and infected ascites associated with metastatic ovarian carcinoma and malignant ascites, most recent hospitalization April 01 through April 09, 2016. 2. Currently developing ulcerated and necrotic areas in the right lower quadrant with erythema suggestive of impending tissue breakdown and probable fistulization in the near future with chronic ascitic leakage expected. 3. Recurrent ovarian carcinoma treated with Taxol/carboplatin chemotherapy up until the beginning of March 2016 with a biochemical response but no improvement in quality of care and probably complicating treatment of her infection. 4. The patient is BRCA1 positive and has had a history of both breast and ovarian cancer and this is a relapse of her ovarian cancer. 5. The patient has had other problems including right lower lobe pneumonia and community-acquired pneumonia, hypothyroidism, diabetes type 2, neuropathic pain, hyperlipidemia, obesity, and hypertension, as well as a large abdominal wall hernia in the right lower quadrant. Her recent hospitalizations were for peritonitis February 022015, February 092015, January 082015, and more recently March 092016 for infected ascites and cellulitis left lower abdomen, and finally April 012016 for peritonitis Pseudomonas. 6. The patient has been managed also with antibiotics and is currently on cefepime 2 g q.12 h. which she self administers at home for infected ascites. 7. Dr. Porter has also been consulted. HISTORY OF PRESENT ILLNESS: This is a patient who developed relapse of ovarian cancer and was treated initially with Taxol and carboplatin, but developed infected ascites after placement of a PleurX catheter for symptomatic relief. It was clear by March that additional chemotherapy was not causing any improvement in quality of life although she had had a biochemical response with a marked drop in CA-125 as her ascites was not bleeding and her infection was not clearing. I indicated during the last admission that the patient is no longer a candidate for chemotherapy. If she were to improve, she might be a candidate for a PARP inhibitor being BRCA1 positive, but not now. She has been managed at home with IV antibiotics, which she administers to herself, and has [facility] checking on her as well. She states that during the past 3-4 days in addition to the cellulitis of the left lower abdominal wall which has been treated in which is associated with a PleurX catheter, she has developed pain and erythema to the right lower abdominal wall and has developed necrotic-appearing lesions in that area as described below. She denies fevers, syncope, or other constitutional symptoms suggestive of sepsis. CURRENT MEDICATIONS: 1. Albuterol HFA. 2. The patient is on 2 L of oxygen. This is mainly because of decreased inspiratory volume due to ascites. 3. Atorvastatin 40 mg. 4. Iron polysaccharide 150 mg. 5. Aspirin 81 mg. 6. Diclofenac one application topically to knees daily. 7. Doxepin two 250 mg capsules at h.s. 8. Fluoxetine 40 mg daily. 9. Lyrica 150 mg t.i.d. for neuropathic pain. 10. Hydroxyzine 25 mg t.i.d. 11. Oxycodone 10 mg q.4 h. p.r.n. 12. Ondansetron 4 mg q.8 h. p.r.n. 13. Levothyroxine 100 mcg daily. 14. Clotrimazole 1 application to feet b.i.d. 15. Cholecalciferol/cyanocobalamin/folic acid. 16. As noted above she is on cefepime 2 g IV q.12 h. SOCIAL HISTORY: The patient still lives alone. She has [facility] coming to see her. She very much wants to stay out of a alf, although her care is complex, but she has been able to self administer her antibiotics. I have been in contact with her sister who lives south of here, I believe in either [place] or [place], and who has been supportive of her and understands the gravity of her situation. REVIEW OF SYSTEMS: The patient is mainly affected by the pain and the swelling in the right lower abdomen. She denies fevers, chills, night sweats. Head and neck: No headaches, visual changes. She has a dry mouth. Respiratory: She requires 2 L of oxygen but gets around with a walker. She actually took a taxi to get to the clinic today and tries to be very independent. GI: She states her appetite is decreased but she is still eating and she has daily bowel movements. The ascitic fluid does not seem to affect her ability to eat or digest food and she has continued abdominal pain and discomfort related to her ascites. : No dysuria or hematuria. Musculoskeletal: She has extensive edema on both lower extremities but she is able walk and get around on her own 2 feet with a walker. The remainder of the 14-system review is negative. PHYSICAL EXAMINATION: The patient's temp was 36.5, pulse 101, respiratory rate 23, blood pressure 154/92, pulse ox 88% on room air. In general, she looks weak and tired but is surprisingly in no real acute distress. Head and neck: Pupils equal, round, and reactive. No icterus. No conjunctivitis. Oral and pharyngeal mucosa is pink and moist. Neck without thyromegaly or masses or adenopathy. Lungs: Scattered rhonchi. Decreased inspiratory volume. Patient is using O2 2 L. Cardiac: Rhythm is regular at 101, without murmur, but she has 3+ peripheral edema. Abdomen: Massive panniculus. There is a large right lower quadrant abdominal wall hernia. There is a PleurX catheter in the left lower quadrant with some mild cellulitis surrounding that. The most striking finding is the presence of approximately five necrotic round-appearing whitish lesions ranging from 1-2 cm in the right lower quadrant with surrounding erythema suggestive of cellulitis with a suggestion of tissue breakdown. There is no fistula but there is drainage of serous fluid from these lesions. The whole area covers approximately 10 x 10 cm. Extremities: Show 3+ edema. LABORATORY VALUES: The white count is 11.3, hemoglobin 7.4, hematocrit 26.3, and platelets 212, 79.6 segs, 12.9 lymphs. The BUN and creatinine are 8 and 0.43. Electrolytes normal, except for potassium 3.2 and carbon dioxide 31. Magnesium 1.4. Calcium 8.3. ALT, AST, alkaline phosphatase, and bilirubin normal. Albumin 2.2. The CA-125 had dropped from 3509 prior to chemotherapy to 198.1 by February 23 after chemotherapy. ASSESSMENT AND RECOMMENDATIONS: This is a patient with a complicated course with advanced ovarian carcinoma, malignant and infected ascites, whose main threat to survival right now is the potential for massive tissue breakdown in the right lower quadrant due to these necrotic lesions. The abdominal wall in the right lower quadrant has been paper-thin for some time due to the hernia which could not be repaired and now is complicated by the development of some tissue necrosis and cellulitis. Dr. Kuhn kindly agreed to see the patient to see what sort of palliative or toileting measures could be undertaken to help her at least symptomatically since clearly a surgical approach is not possible and the patient cannot receive any more chemotherapy. The patient agreed to be admitted for surgical and wound care evaluation basically to manage this area of tissue breakdown and hopefully to minimize the impact on her quality of life. This is a very tough situation with no good solution available. The patient understands that she may from this and does not wish to be FULL CODE but has not yet agreed to go onto hospice and wants all measures short of CPR.
[2016-04-15 19:49] VITALS: BP 127/74; PULSE 86; RESP 16; O2SAT 97
--- NOTE | 2016-04-15 19:59 | DRSVH ---
PROCEDURE: X-RAY CHEST, TWO VIEWS ([id number]) INDICATIONS: Possible effusion TECHNIQUE: Two views of the chest were acquired. COMPARISON: [facility], CR, XR CHEST 1VW (PORTABLE), 04/04/2016, 11:07. FINDINGS: Surgical Changes and Devices: Stable positioning of right IJ chest port. Lungs and Pleura: No pleural effusions or pneumothorax. Decrease in left basilar airspace opacity, which has not resolved. Mediastinum: Mediastinal contours are normal. Heart size is normal. Bones and Chest Wall: No suspicious bony abnormalities. Soft tissues appear unremarkable. IMPRESSION: Decreasing left basilar airspace opacity. Dictated by: Cedric Werner RRA Interpreted: Poppy Andres MD on 04/15/2016 at 17:09 Transcribed by: PETER on 04/15/2016 at 22:58 Approved by: Poppy Andres MD, PhD on 04/16/2016 at 15:19
[2016-04-15] MEDS ORDERED: Cefepime 2,000 mg/100 mL D5W Minibag Plus IV SCH ×2 (20:30)
[2016-04-15] MEDS ORDERED: 0.9% Sodium Chloride 250 ML ONE (21:23)
[2016-04-15] MEDS ORDERED: Furosemide 10 mg/mL 2 mL Inj IV PRN (22:45)
[2016-04-15] MEDS ORDERED: Albuterol 2.5 mg/3 mL Inhalation Solution NEB PRN (22:45)
--- NOTE | 2016-04-15 22:47 | PCM.HPMED ---
Subjective Date of Service Apr 15, 2016 Primary Provider: Admitting Physician: Soto Farr MD Primary Care Physician: Heide Lowery MD Attending Physician: Soto Farr MD Chief Complaint: Increased pain and inflammation of the right side of her abdomen. History of Present Illness: The patient is a morbidly obese pleasant 65-year-old patient followed by -initially with diagnosis of triple negative breast CA personally 12 years ago. Then in August 2013 she was diagnosed with ovarian CA Stage 3 treated with surgery and chemotherapy. She was diagnosed with BRCA 1 just prior to her ovarian diagnosis after finding out about some of her family history. She did fairly well after her initial treatment in 2013 but this last fall began developing ascites with increasing CA 125. She has pain and dyspnea with increasing ascites and ended up having a Pleurx catheter placed. She has been draining over 1 1000 mL off every day recently. She has been hospitalized a number of times for peritonitis since placement. Recently the patient was seen by Dr. Porter to manage pseudomonas peritonitis and now a cellulitis on her distended abdominal wall. The patient was seen by Dr. Winkler during the last hospitalization with concern about immunosuppression in the light of her recurrent infections. His recommendation is to discontinue her chemotherapy at this time. It was noted that the goal was to control her ascites which has been to do. Her tumor markers have decreased with recent therapy. Patient was recently discharged home with diagnosis of.Abdominal wall cellulitis with abdominal wall abscess and Pseudomonas peritonitis. There were felt to be two areas of cellulitis on abdominal wall ,acute on chronic . This was initially treated with Vanco , Clinda and meropenem. The patient was seen by Dr. Porter and it was determined that the patient should go home on IV antibiotics.. Therefore, home infusion orders were followed for two weeks of cefepime and the dose would be 2 g IV q.12 h. to be continued at least through April 21. Weekly labs will be checked and sent to both Dr. Winkler and Dr. Porter Patient saw Dr. Winkler in the office today and he felt that this is a patient with a complicated course with advanced ovarian carcinoma, malignant and infected ascites, whose main threat to survival right now is the potential for massive tissue breakdown in the right lower quadrant due to these necrotic lesions. The abdominal wall in the right lower quadrant has been paper-thin for some time due to the hernia which could not be repaired and now is complicated by the development of some tissue necrosis and cellulitis. The patient was sent from Dr. Winkler's office to [facility] to be admitted directly under the hospital service. Review of Systems: General: Patient is in some distress over her current condition. HEENT: Patient has no headache, patient has no diplopia, patient has no changes in vision. Patient has no problems with their ears, nose or throat. Patient has no known dental problems. Patient has no pharyngitis or history of thrush. Neck: Patient has no stiffness in the neck. Patient has no lymphadenopathy. Patient has no other problems with their neck. Pulmonary: Patient has no shortness of breath, no cough, no expectoration of sputum. Patient has no pleurisy. Patient has no chest pain. Patient has no history of asthma or COPD. Cardiovascular: Patient has no chest pain. Patient has no history of heart murmur. Patient has no palpitations. Patient has no history of myocardial infarction. Patient has no history of coronary artery disease. Gastrointestinal: Patient has no history of hepatitis A, B or C. Patient has no history of peptic ulcer disease. Patient has no history of gastroesophageal reflux disease. Patient has no history of nausea, vomiting, or diarrhea. Patient has no history of hematemesis, hematochezia, or melena. Patient has no history of colitis. Patient is concerned over the condition of her enlarging abdomen. Renal: Patient has no history of kidney disease. No history of kidney stones. Genitourinary: Patient has no history of dysuria, frequency, or incontinence. Patient has no previous history of genitourinary problems. Musculoskeletal: Patient complains of increasing lower extremity edema Neurologic: Patient has no history of stroke, no history of seizure, no history of TIA. Psychiatric: Patient has no history of psychiatric problems. The remainder of the entire review of systems was reviewed with patient and is as mentioned above otherwise negative. Allergies Coded Allergies: hydrocodone (Verified Allergy, Severe, Rash,Itching, n/v, 04/01/16) cephalexin (Verified Allergy, Intermediate, itching, vomiting, 04/01/16) Home Medications Discharge Medications after recent hospitalization Aspirin (Aspirin) 81 Mg Tablet 81 MG PO DAILY (Reported) Atorvastatin Calcium (Atorvastatin Calcium) 40 Mg Tablet 40 MG PO HS (Reported) Cholecalciferol (Vitamin D3) (Vitamin D) 1,000 Unit Capsule 2,000 UNIT PO DAILY (Reported) Cyanocobalamin/Folic Acid (Vitamin A27-Dlppp Acid Tablet) 1 Each Tablet 1 EACH PO DAILY (Reported) Doxepin (Doxepin) 50 Mg Capsule 2 CAP PO HS (Reported) Fluoxetine (Fluoxetine) 40 Mg Capsule 40 MG PO DAILY (Reported) Levothyroxine (Levothyroxine) 100 Mcg Tablet 100 MCG PO DAILY (Reported) Pregabalin (Lyrica) 150 Mg Capsule 150 MG PO TID (Reported) As needed Albuterol HFA (Proair HFA) 8.5 Gm Hfa.aer.ad 2 PUFFS IH Q4 PRN PRN For Shortness of Breath (Reported) Clotrimazole (Athlete's Foot) 1 % Cream..g. 1 APPLIC TOPICAL TID PRN PRN dry cracking skin on feet (Reported) Diclofenac Sodium (Diclofenac Sodium) 1 % Gel..gram. 1 APPLIC TOP PRN PRN PRN KNEE PAIN (Reported) Ondansetron ODT (Ondansetron ODT) 4 Mg Tab.rapdis 4 MG PO q8hr PRN PRN For Nausea (Reported) hydrOXYzine Hcl (HydrOXYzine Hcl) 25 Mg Tablet 25 MG PO TID PRN PRN For Anxiety or Agitation (Reported) oxyCODONE (oxyCODONE) 10 Mg Tablet 10 MG PO Q4H PRN PRN For Pain (Reported) Miscellaneous Medications Iron Polysaccharides Complex (Ferrex 150) 150 Mg Capsule 150 MG PO (Reported) PMH 1. Recurrent ovarian carcinoma with original treatment including debulking or cytoreductive surgery August 27, 2013, followed by Taxol, carboplatin adjuvant therapy completed February 2014. 2. Recurrence with ascitic fluid positive December 18, 2015 and systemic chemotherapy initiated December 25, 2015, carboplatin q. week Taxol with three cycles completed thus far. 3. Hospitalized January 08 to January 14, 2016, for acute on chronic respiratory failure and there was a PleurX catheter placed on January [address] Harmon. 4. Hospitalization for bacterial peritonitis February [address] Porter. He received an additional seven days of daptomycin outpatient. 5. Complex cancer history related to related to BRCA1 positivity. She has a history of both stage IIIC ovarian carcinoma and prior triple negative breast cancer treated in 2005, with radiation completed November 2005. She did not know that she was BRCA1 positive until several months before she developed ovarian cancer. This was discovered after she reconciled with her family and discovered that there is a strong family history of breast cancer. 6. Right lower lobe pneumonia August 2013. 7. Community-acquired pneumonia with respiratory failure, November 2015. 8. Diabetes type 2. 9. Hypothyroidism. 10. Chronic pain, neuropathic in nature, previously opiate dependent, not now. 11. Hyperlipidemia. 12. Hypertension. 13. Obesity. Family History There is a strong family history of breast cancer and the patient is BRCA1 positive Social History Hx Alcohol Use: Yes (occasional drink now for special occasions) Hx Substance Use: No Hx Tobacco Use: Yes (patient smoked from the ages of approximately [age] 1-1/2 packs per day) Smoking Status: Former Smoker Living Arrangement: Alone Exam Vital Signs Vital Sign - Last Date Time Temp Pulse Resp B/P Pulse Ox O2 Delivery O2 Flow Rate FiO2 04/15/16 21:52 Supplement Oxygen 04/15/16 19:49 36.5 86 16 127/74 97 2.00 Exam General: Patient was evaluated with the wound care team Herminia Reyes who were trying to fix a ostomy type implement to her right lower quadrant wound that was draining what appears to be subcutaneous fluid. Patient was in some distress over this situation. HEENT: Head is atraumatic and normocephalic. Eyes: Pupils are equally round and reactive to light and accommodation. Extraocular muscles are intact. Sclera are white, anicteric. Subconjunctival mucosa is pink. Ears and nose are unremarkable. Oropharynx: There is no mucosal lesions, there is no thrush, there is no pharyngitis. Neck: Is supple, there are no nodes, or masses or tenderness. Chest: Is clear to auscultation and percussion. There are no rales, rhonchi, wheezes or rubs. Heart: Rate, rhythm is regular. There is no new murmur, rub or gallop. Abdomen: Is morbidly obese and more distended than last admission distended with a large right lower quadrant hernia and fluid wave shift. Bowel sounds are present. Abdomen is tender in the right lower quadrant where there are 2 areas of cellulitis/abscess there. Recall resting and blanching of skin due to likely thinning of skin or pressure from ascitic fluid. The drainage from these lesions appears to be more from subcutaneous edema rather than ascitic fluid. There is some cellulitis around this area. Extremities: Are symmetrical and well perfused. There is 2-3+ pitting edema both lower extremities which is symmetrical. Extremities remain well perfused. Neurologic: There are no focal neurological deficits. Cranial nerves II through XII are intact. There are no sensory or motor deficits. Psychiatric: Patients mood is calm and shows no sign of agitation. Genital: Deferred Rectal: Deferred Lab and Diagnostics Result Diagram: 04/15/16 1507 04/15/16 1507 Microbiology Cultures are pending X-Rays, CTs and MRIs PROCEDURE: X-RAY CHEST, TWO VIEWS ([id number]) INDICATIONS: Possible effusion TECHNIQUE: Two views of the chest were acquired. COMPARISON: [facility], CR, XR CHEST 1VW (PORTABLE), 04/04/2016, 11: 07. FINDINGS: Surgical Changes and Devices: Stable positioning of right IJ chest port. Lungs and Pleura: No pleural effusions or pneumothorax. Decrease in left basilar airspace opacity, which has not resolved. Mediastinum: Mediastinal contours are normal. Heart size is normal. Bones and Chest Wall: No suspicious bony abnormalities. Soft tissues appear unremarkable. IMPRESSION: Decreasing left basilar airspace opacity. Dictated by: Cedric Werner [facility] Interpreted: Poppy Andres MD on 04/15/2016 at 17:09 Transcribed by: PETER on 04/15/2016 at 22:58 Cardiac Echo Impressions Echocardiogram Report Name: CORIE RAMIREZ Da te: 01/11/2016 Height: 64 in Hospital Exam Location: [facility] Weight: 176 lb Gender: Female BSA: 1.9 m2 : 1950 Age: 65 yrs BP: 94/88 mmHg Reason For Study: PERICARDIAL EFF. CHF Ordering Physician: HOSPITALIST [facility] Performed By: Nicole Berg Referring Physician: Dr. Heide Lowery Interpretation Summary The left ventricle is normal in size. Left ventricular wall thickness is mildly increased. The ejection fraction is estimated to be 70-75%. LVEF has not changed significantly. There are no focal wall motion abnormalities. Assessment of diastolic parameters indicates normal left ventricular diastolic function and normal filling pressures. The right ventricle is normal in size and function. Right ventricular systolic pressure is estimated to be 31 mmHg plus the clinically estimated CVP which cannot be estimated on this exam. Both atria are normal in size. There is no significant valvular heart disease. The ascending aorta is mildly enlarged. The aortic arch is mildly enlarged. There is a trivial to small pericardial effusion noted. There are no echocardiographic or Doppler indications for cardiac tamponade. Ascites present. Assessment & Plan The patient is a 65-year-old female, with ovarian CA and malignant effusion, who has chemotherapy on hold due to current abdominal wall infection with Pseudomonas, who sent by cancer Center complaining of increasing pain and redness in the right lower quadrant area of her abdomen # Abdominal wall cellulitis with abdominal wall abscess and Pseudomonas peritonitis. Two areas of Cellulitis on abdominal wall , with acute on chronic exacerbation despite home IV antibiotics. Patient has failed home IV antibiotic therapy - Dr. Max Kuhn of general surgery has been consulted to see the patient appreciate his consult and will follow his recommendations - Wound care team has seen the patient and patient was evaluated with Yoshi and Amy appreciate their help in management of this very difficult case - We will continue IV cefepime and for pseudomonal coverage and will add Flagyl for anaerobic coverage - Dr. Winkler of oncology was consulted and saw the patient today. We appreciate his input will follow his recommendations. - Palliative care was consulted and appreciate Dr. Benz's help. # Infected malignant ascites s/p Pleurx drain - catheter patency study XR done 04/01 and is patent, - Continue to drain fluid as needed - further plan as noted above # Chronic hypoxic respiratory failure, stable. - c/w home O2 2 L # Normocytic anemia requiring transfusion in the past, recurrent 2 months -We will plan on transfusing 1 unit of packed red blood cells in a.m. followed by Lasix # Acute hypomagnesemia - Replete and will follow and replete as needed # Acute hypokalemia - We will replete and will follow and replete further as needed # Goals of care - Appreciate palliative care consult. will f/u w/ recs Chronic issues known prior to admission, present on admission: # History of Loculated ascites, Bacterial enterococcus peritonitis, treated with daptomycin January 2016 # Stage IIIc ovarian cancer, breast cancer 2005 treated with radiation/lobectomy , BRCA 1 positive - further treatment recs per oncology # Diabetes type 2. Neuropathic pain - c/w current coverage # Hypothyroidism. - c/w Levothyroxine # Chronic pain, neuropathic in nature, previously opiate dependent, stable # Hyperlipidemia. Hypertension. Obesity. - c/w home meds # Depression. stable Disposition: Patient is likely to be here more than 2 minutes for evaluation and treatment of the above problem. Therefore, patient was admitted as an inpatient. Soto Farr MD Apr 15, 2016 22:47
[2016-04-15] MEDS ORDERED: Magnesium Sulf 4 Gm/100 mL H2O 4 GM in IV Premix 1 EACH IV ONE (23:00)
[2016-04-15] MEDS ORDERED: Potassium Chloride 20 mEq SR Tablet PO ONE (23:00)
--- NOTE | 2016-04-15 23:23 | PCM.CONPAL ---
Date of Service Apr 15, 2016 Date of Hospital Admission: Apr 15, 2016 at 12:39 Date of Palliative Consult: Apr 15, 2016 Requesting Provider: Max Kuhn MD Reason Palliative Care Consult: Goals of Care Discussion Hospital Unit @time of consult: Orthopedic/Surgical Care Palliative Care Recommendation Summary of palliative recommendations: -Symptom management (Pain/other)- PAIN--Has increased her oxycodone to 20 mg Q 4 hour to get partial control. She has not tolerated LA opiates but she is also vague on what has caused her problems--?MS vs methadone Will order this routinely Also hydromorphone 0.5-1 mg IV Q 2 hour PRN Abd wall hernia-apparently not surgically approachable. will be followed by surg Existential suffering-Kelly has been doing this alone with her hope that Dr. Winkler would find another medication to keep this from progressing. Reviewed benefit of hospice to help her through this. Hospice contacted and will see her. Sister will hopefully be present for that discussion. -DPOA/Advanced Directives/POLST-She identifies her sister Tatiana as DPOAHC. After much discussion she is willing to change code status to DNR/DNI and no feeding tube -Family/emotional support-Tatiana sister. Distanced from her son--feels it is his job to contact her -- not the other way around. After discussion with her sister-- she is planning on taking tomorrow off from work to come up and see her /support. -Spiritual support-not interested. Problems: End of Life Preferences DNR/DNI/limited Goals of Care Hospice to see and hopefully be able to manage at home. She is not interested in a care facility Resuscitation Status Resuscitation Status: DNR/DNI:Do Not Resuscitate/Intubate Limited Interventions: Medications and IV Fluid POLST Updates/Changes Previous POLST?: No Artificially Admin Nutrition: No Artifical Nutrition by Tube POLST Discussed with: Patient . Advanced Care Planning Address: Code status change Pain: Severe Symptom management: Depression, Anxiety, Pain Pt History History of Present Illness 65 yo female patient with multiple hospitalizations for complications of malignant ascites including recurrent infections. She has ovarian CA managed by Dr. Winkler that has responded to chemo with decrease in tumor markers but no improvement in ascites. She has a pleurex cath and drains 500-800 cc daily.She was recently hospitalized for pseudomonas peritonitis and abd wall cellulitis. She comes in now with increasing abd wall pain-8 out of 10 for the past few days only partially controlled with increasing her oxycodone to 20 mg Q4 hours. She has been using laxatives with moderate success in controlling constipation. She has been getting weaker, decreased appetite but no fever or chills. She was seen today by Dr. Winkler with a subsequent consult by Dr. Kuhn suggesting no further chemo but also no surgical options for what appeared to be a near necrotic abd wall over a massive hernia. She is in for pain control and wound control. Past Medical History Significant PMH Noted: Hx BRCA with breast CA and ovarian CA obesity abd wall hernia HTN DM2 Hypothyroidism HLD Depression nonsmoker no ETOH Social History Family Members Issues: distanced from her son Social Support: sister Tatiana Living Situation: lives alone with her cats Spiritual Support Spiritual Support not interested Responsive Patient Symptoms Pain (maximium): Moderate Nausea: Mild Depression: Moderate Drowsiness/Sleepiness: Moderate Anorexia: Mild Shortness of Breath: Moderate Constipation only fair control Allergy Allergies Reviewed: Yes (methadone and or morphine caused hallucinations) Medications Current Medications: Current Medications Al Hydrox/Mg Hydrox/Simethicone 30 ml Q6H PRN PO; Start 04/15/16 at 13:05 Ondansetron HCl 4 to 8 mg Q4H PRN IVPUSH; Start 04/15/16 at 13:05 Senna 17.2 mg BID PRN PO; Start 04/15/16 at 13:05 Polyethylene Glycol 17 gm DAILY PRN PO; Start 04/15/16 at 13:05 Acetaminophen 650 mg 650 mg Q4H PRN PO; Start 04/15/16 at 13:05 Cefepime HCl/ Dextrose/Water 100 ml @ 25 mls/hr Q12 IV Last administered on 04/15 21:49; Admin Dose 25 MLS/HR; Start 04/15/16 at 20:30 Oxycodone HCl 10 mg Q4H PRN PO Last administered on 04/15/16 15:47; Admin Dose 10 MG; Start 04/15/16 at 13:40; Stop 04/15/16 at 16:08; Status DC Oxycodone HCl 20 mg Q4H PO Last administered on 04/15/16 18:26; Admin Dose 20 MG ; Start 04/15/16 at 17:30 Hydromorphone HCl 1 mg Q3H PRN IVPUSH; Start 04/15/16 at 16:00 Oxycodone HCl 20 mg Q4H PO; Start 04/15/16 at 16:10 Hydromorphone HCl 0.5-1 MG Q3H PRN IVPUSH; Start 04/15/16 at 16:10 Scheduled Amoxicillin/Clav K 875-125 mg (Augmentin 875-125 mg) 1 Each Tablet 1 TABLET PO BID Aspirin (Aspirin) 81 Mg Tablet 81 MG PO DAILY Atorvastatin Calcium (Atorvastatin Calcium) 40 Mg Tablet 40 MG PO HS Cholecalciferol (Vitamin D3) (Vitamin D) 1,000 Unit Capsule 2,000 UNIT PO DAILY Cyanocobalamin/Folic Acid (Vitamin F33-Clqjx Acid Tablet) 1 Each Tablet 1 EACH PO DAILY Doxepin (Doxepin) 50 Mg Capsule 2 CAP PO HS Fluoxetine (Fluoxetine) 40 Mg Capsule 40 MG PO DAILY Furosemide (Lasix) 40 Mg Tablet 40 MG PO DAILY Iron Polysaccharides Complex (Ferrex 150) 150 Mg Capsule 150 MG PO BID Levothyroxine (Levothyroxine) 100 Mcg Tablet 100 MCG PO DAILY Metronidazole (Flagyl) 500 Mg Tablet 500 MG PO Q8 Pregabalin (Lyrica) 150 Mg Capsule 150 MG PO TID Scheduled PRN Albuterol HFA (Proair HFA) 8.5 Gm Hfa.aer.ad 2 PUFFS IH Q4 PRN PRN For Shortness of Breath Clotrimazole (Athlete's Foot) 1 % Cream..g. 1 APPLIC TOPICAL TID PRN PRN dry cracking skin on feet Diclofenac Sodium (Diclofenac Sodium) 1 % Gel..gram. 1 APPLIC TOP PRN PRN PRN KNEE PAIN Ondansetron ODT (Ondansetron ODT) 4 Mg Tab.rapdis 4 MG PO q8hr PRN PRN For Nausea hydrOXYzine Hcl (HydrOXYzine Hcl) 25 Mg Tablet 25 MG PO TID PRN PRN For Anxiety or Agitation oxyCODONE (oxyCODONE) 10 Mg Tablet 10 MG PO Q4H PRN PRN For Pain Objective Findings Exam Vital Sign - Last Date Time Temp Pulse Resp B/P Pulse Ox O2 Delivery O2 Flow Rate FiO2 04/15/16 21:52 Supplement Oxygen 04/15/16 19:49 36.5 86 16 127/74 97 2.00 Objective moderate distress-emotionally and pain 09/23 General: Alert/Oriented x3 HEENT: PERRLA, EOMI, Scleral Anicteric Heart: Regular Rate/Rhythm Lungs: Clear to Auscultation, Wheezes Abdomen: Tenderness to Palpation, Distended, Ascites Neuro: Cranial Nerve 3-12 Intact, Other Lab/Diagnostics Lab and Imaging results reviewed in detail in EMR. Patient/Family Conference Members Present Family Members Present patient and later discussion with Tatiana sister at patient's request Medical Team Members Present? [facility] Discussion/Goals of Care Discussion FAMILY UNDERSTANDING OF DISEASE: Patient with significant distress due to pain but more so with consideration of what is ahead. She has not been able to share severity of illness with her sister who is her only support. She continues to hope for another treatment option. Her emotional distress would indicate that she is starting to understand her issues. She has ovarian CA but now her abd wall necrosis may cause her demise with sepsis. She feels hospice is "giving up"--reviewed benefits of support and establishing goals of care to be at home with her pets and support and not in hospital. Dr. Kuhn supporting this route as has been Dr.Diane Lowery -her PCP. She feels she needs the support of her sister for decision about hospice. Later discussion with Tatiana by phone-25-30 min. Tatiana states that her sister said she was feeling poorly yesterday but has not told her anything else about what has been going on. She has been unaware of severity of issues. Reviewed issue of infections including peritonitis, abd wall; info from notes by Dr. Winkler and Hattie. Explained Hospice and consideration of changing GOC and the challenge this is for Kelly. DISEASE PROGRESSION/EVIDENCE OF DECLINE: SYMPTOM BURDEN: GOALS: HOPES/WORRIES: Patient is afraid to give up and afraid to not have Dr. Winkler who has helped her thru all this Time spent Total time 75 minutes; >50% face to face with patient and/or family, providing counselling regarding plans and recommendations, and in care coordination with his/her medical teams. Includes discussion with and I also spent an additional [ ] minutes counseling for advanced care planning with the patient/the patients family/the surrogate decision maker. copies to: GjersLance polo MD, Deborah A MD Apr 15, 2016 23:23
[2016-04-15] MEDS ORDERED: Cefepime Inj 2 GM in IV Premix 1 EACH IV SCH (23:59)
[2016-04-16] VITALS (11 sets, daily range): BP systolic 111–142; BP diastolic 66–93; PULSE 71–85; RESP 14–25; O2SAT 90–94
[2016-04-16] MEDS: HYDROmorphone 0.5 mg/0.5 mL iSecure Syringe IVPUSH PRN ×4 (01:01→16:01)
--- NOTE | 2016-04-16 04:12 | NUR ---
Dressings Large dressing placed by wound care attached to drainage bag to manage right abdominal wound, purulent drainage, bag and tube easily get twisted, close monitoring continues. Pluerex drain to left side of abdomen, C/D/I; supplies in room for pt to manage drainage prn. Small dressing below Pluerex site with gauze, C/D/I; will change prn. Pain managed with oxycodone every 4 hours prn. Pt is very emotional and very sad, has not told family members about changes, did not want to speak to them when sister called in evening. Supportive care and hourly rounding ongoing.
[2016-04-16 05:53] LABS: BASOPHILS % (AUTO) 0.2 % (0-3); EOSINOPHILS % (AUTO) 0.9 % (0-5); MONOCYTES % (AUTO) 8.4 % (4-12); Mean Corpuscular Hemoglobin 27.1 pg (27.0-35.0); Mean Corpuscular Volume 97.5 fL (81-100); NEUTROPHILS % (AUTO) 70.7 % (40-74); Platelet Count 212 bil/L (150-400)
[2016-04-16 06:14] LABS: Magnesium 2.4 mg/dL (1.6-2.6); Phosphorus 3.8 mg/dL (2.5-4.9)
[2016-04-16 08:02] LABS: APPEARANCE,URINE HAZY (CLEAR,HAZY); COLOR,URINE STRAW (YELLOW); OCCULT BLOOD,URINE TRACE (NEGATIVE); PH,URINE 6.5 (5.0-8.0); UROBILINOGEN,URINE NORMAL (NORMAL); YEAST,URINE MODERATE (NONE SEEN)
[2016-04-16] MEDS: hydrOXYzine Pamoate 25 mg Capsule PO PRN ×2 (08:19→17:05)
[2016-04-16] MEDS ORDERED: POLYSACCHARIDE IRON COMPLEX 150 MG PO SCH (08:30)
--- NOTE | 2016-04-16 11:17 | NUR ---
Palliative Care Palliative Care received verbal order from Dr Beverley Kuhn 04/15/16 (late in day) to assist with goals of care and pain management. Patient is a 65 year old female with advanced ovarian carcinoma, malignant and infected ascites. She was admitted 04/15/16 complaining of increasing pain and redness in the right lower quadrant area of her abdomen. Palliative Care has seen patient multiple times during multiple admissions in 2016 and 2017. Patient lives at home alone. Tatiana (sister/DPOA) [phone], Ton Gallardo (son) [phone], Subhash Maki (friend) [phone] Palliative Care to follow. Dr Mckenzie and PC COTTON TIPPER having family meeting with patient and Tatiana today at 11 am. [place]
[2016-04-16] MEDS: Cefepime 2,000 mg/100 mL D5W Minibag Plus IV SCH ×2 (12:46)
--- NOTE | 2016-04-16 13:05 | NUR ---
Palliative care note [facility] D[facility]: Met with pt and her sister Tatiana, as well as Dr.s Mckenzie and . Pt expresses that she is in need of more detail around what Dr. Winkler could be able to do for her. Dr. Mckenzie is able to supply her with information based on both Dr. Winkler's H&P as well as the consult from Dr. Kuhn. Pt had not totally understood that there was no more treatment for her at this time. She and her sister are understandably upset about the situation as neither has realized that there was no further treatment for pt at this time. Please note that the man who pt identifies as her relationship partner is named Subhash. He was present today for a bit of time as his employers gave him some time off from his job at [employer]. Pt identifies that Subhash does not know about the extent or the severity of her illness. She is worried about telling him. He is currently sober and has been for some time but she is concerned that the stress of her illness and impending loss may cause his to use ETOH again. PC offered both pt and sister to assist with talking to him today but neither pt nor sister felt ready to tackle this today. PC notes that pt sister is identified as primary DPOA for pt . See copy on chart and note that it was completed in a prior encounter. Sister given copy of this document. Dr. Mckenzie completes POLST with pt. She elects to be DNAR with comfort measures only and her goals are to stay at home with comfort and as little pain as possible. Copy of POLST is in chart and is stickered. Copy of POLST also faxed to [facility]. Discuss [facility] with pt and sister. Sister is very positive about this option and notes this is the only way for pt to return home in a safe manner. Pt agrees to consider [facility] and an info visit is discussed. Arrange with Jael for a 1:00 visit for today. Sister needs to leave by 3:00 pm today as has to get home prior dark due to poor vision in low light. Jeal later changes time to 2:00 with Bassem DE LA GARZA from [facility] providing visit. Jael also working on time for [facility] open. Dr. Mckenzie indicates that she feels that pt needs to go home on same day as [facility] open. Case discussed with Cece OROZCOW as well as Margaret, charge and bedside RN's. P: Palliative care to continue to follow. Shelby BARRIENTOS, CCM
--- NOTE | 2016-04-16 13:21 | PCM.PALLBR ---
Palliative Care Recommendation Summary of palliative recommendations: Symptom Management: 1. Pain: continue oxycodone 20mg q 4H and hydromorphone 0.5-1mg IV q 2 h PRN for breakthrough pain. 2. Dr. Mckenzie offered pt option of fentanyl pain patch for senior care pain relief, and easier management in home environment, but pt refused saying she had tried pain patch before "and it didn't work." DPOA/Advanced Directives/POLST: 1. Paperwork on chart stating patient's sister Tatiana is DPOAHC. 2. After lengthy discussion with Palliative Care today, pt selected her preferences for POLST and asked her sister Tatiana to sign for on her behalf. New POLST states: DNR/DNI/no feeding tube. Comfort measures with plan to go home with hospice. Original on paper chart. Multiple copies given to Tatiana. 1 copy in PC office. 3. Family will have a hospice info visit today at 2pm. Family/emotional support: Tatiana sister. Distanced from her son--feels it is his job to contact her -- not the other way around. Pt's boyfriend Subhash is supportive and knows she has cancer but doesn't know how bad it is. Kelly has been reluctant to tell him and is not ready to tell him today. She declined PC team offer to help with this. Spiritual support: not interested Problems: End of Life Preferences DNR/DNI/limited Disposition from discussions with pt and sister on 04/16, pt will likely choose home with hospice assistance Resuscitation Status Resuscitation Status: DNR/DNI:Do Not Resuscitate/Intubate POLST Updates/Changes Previous POLST?: No POLST Last Review Date: Apr 16, 2016 Antibiotics: Determine Use or Limitations Artificially Admin Nutrition: No Artifical Nutrition by Tube POLST Discussed with: Patient, Health Care Agent (DPOAHC) POLST Review Outcome: New Form Completed . Advanced Care Planning Address: POLST Pain: Moderate Total time 65 minutes; >50% face to face with patient and/or family, providing counselling regarding plans and recommendations, and in care coordination with his/her medical teams. I also spent an additional 60 minutes counseling for advanced care planning with the patient/the patients family/the surrogate decision maker. Palliative Brief Note Date of Service Apr 16, 2016 . Patient Identification: 65 yo morbidly obese WSF with recurrent ovarian cancer and multiple hospitalizations for complications of malignant ascites. She has a pleurex cath and drains 500-800 cc daily to relieve pain and pressure from distended abdomen. She was recently hospitalized for pseudomonas peritonitis and abdominal wall cellulitis. Hospital Course: Admitted 04/15 for increasing abdominal wall pain 09/23. The patient has been hospitalized multiple times for infected malignant ascites and now has a new problem in developing a necrotic wound in the right lower abdominal wall in an area where the wall is extremely thin due to long-term herniation that has broken down significantly since her last admission, and is draining moderate amounts of serous fluid from an eruptive looking ulceration that is approximately 7 cm x 6 cms. On 04/15 she was seen by both her oncologist Dr. Winkler and surgeon Dr. Kuhn. Both consultants feel she cannot have any further chemotherapy due to her morbidities and overall debility. Dr. Kuhn said any surgical interventions would be too high risk. They both recommend ongoing pain control and wound management. Dr. Kuhn also recommended hospice to patient. Johanna Mckenzie MD Apr 16, 2016 13:21
[2016-04-16] MEDS ORDERED: 0.9% Sodium Chloride 100 ML ONE ×2 (13:24→13:25)
[2016-04-16] MEDS ORDERED: HepLOK Flush 100 unit/mL 5 mL Inj IVFLUSH PRN (14:05)
[2016-04-16] MEDS: 0.9% Sodium Chloride 250 ML IV SCH (14:05)
[2016-04-16] MEDS ORDERED: Sodium Chloride LOK Flush 10 mL Syringe IVFLUSH PRN ×2 (14:05)
--- NOTE | 2016-04-16 14:07 | PCM.PNSURG ---
Subjective Date of Service: Apr 16, 2016 Visit Information: Reason for Visit Abdominal Wall Necrosis With Impending Fistula Surgery/Surgery Date Post-Op Day # Date of Admission: Apr 15, 2016 at 12:39 Hospital Day #2 Subjective: Ostomy type device was placed around the area of erosion yesterday by wound care. The patient feels that drainage is well contained. She states that pain from the Pleurx catheter distracts her from any discomfort she may be experiencing from her right lower quadrant abdominal wall pain Postop General: Other (as above) Objective Objective Right lower quadrant abdominal wall skin breakdown is an area of approximately 6 cm of white firm material erupting from the skin surrounded by a area of approximately 12 cm of induration and blanching erythema. Vital Sign- Last 8 Hours Date Time Temp Pulse Resp B/P Pulse Ox O2 Delivery O2 Flow Rate FiO2 04/16/16 13:41 36.7 79 16 115/70 04/16/16 08:06 Supplement Oxygen Intake and Output- Last 8 Hour 04/16/16 Cumulative From/Thru 06:59 04/15/16 14:15 - 04/16/16 05:40 Intake Total 668 ml 1127 ml Output Total 1500 ml 1850 ml Balance -832 ml -723 ml Intake Oral 437 ml 896 ml IV Total 231 ml 231 ml Output Urine Total 1250 ml 1600 ml Drainage Total 250 ml 250 ml # Bowel Movements 0 General: Alert, Cooperative, No Acute Distress Lungs: Clear to Percussion Heart: Regular Rate/Rhythm Extremities: Anasarca Neuro: Normal Speech Catheters: Urethral 2 Way [place] Result Diagram: 04/16/16 0540 04/16/16 0500 Assessment & Plan Impression Primary diagnosis: Right lower quadrant skin breakdown. Drainage now contained by an ostomy device. Other diagnoses: 1. Recurrent ovarian carcinoma with original treatment including debulking or cytoreductive surgery August 27, 2013, followed by Taxol, carboplatin adjuvant therapy completed February 2014. 2. Recurrence with ascitic fluid positive December 18, 2015 and systemic chemotherapy initiated December 25, 2015, ciscarboplatin q. week Taxol with three cycles completed thus far. 3. Hospitalized January 08 to January 14, 2016, for acute on chronic respiratory failure and there was a PleurX catheter placed on January [address] Harmon. 4. Hospitalization for bacterial peritonitis February [address] Porter. He received an additional seven days of daptomycin outpatient. 5. Complex cancer history related to related to BRCA1 positivity. She has a history of both stage IIIC ovarian carcinoma and prior triple negative breast cancer treated in 2005, with radiation completed November 2005. She did not know that she was BRCA1 positive until several months before she developed ovarian cancer. This was discovered after she reconciled with her family and discovered that there is a strong family history of breast cancer. 6. Right lower lobe pneumonia August 2013. 7. Community-acquired pneumonia with respiratory failure, November 2015. 8. Diabetes type 2. 9. Hypothyroidism. 10. Chronic pain, neuropathic in nature, previously opiate dependent, not now. 11. Hyperlipidemia. 12. Hypertension. 13. Obesity, BMI 43.1. 14. Former cigarette smoker Problems: Plan No surgical intervention, local wound care only. Drainage is now contained with an ostomy device. Resuscitation Status: DNR/DNI:Do Not Resuscitate/Intubate Freddie Pink PA-C Apr 16, 2016 14:07
--- NOTE | 2016-04-16 15:25 | NUR ---
Social Work: Discharge Planning Data & Assessment: Met with patient at bedside top explain SW role and discuss discharge options. Patient reports that she is in agreement with discharging home with [facility]. SW attempted to call [facility] to inquire about when they are able to admit the patient but there was no one available. SW left a message requesting a call back. SW will continue to follow and assist patient throughout stay. Plan: patient is likely to discharge home with Hospice and [facility] Care[facility]. SW will continue to follow. Cece Childress LMSW, ACM
--- NOTE | 2016-04-16 15:44 | NUR ---
Social Work-initial assessment: Data & Assessment: See initial assessment. EMR reviewed. Pt is a 65 y/o female who was admitted on 04/15/16. Pt's insurance is [facility] blind disabled and [facility] Medicaid and PCP is Heide Lowery MD. Pt's readmission score is 6-high risk. SW met with pt to discuss discharge planning, SW role explained and initial assessment complete. Pt is alert and oriented x3. Pt resides at home alone in a single level home with thirteen steps to enter where pt remains independent with basic ADLs. Pt uses a 4ww and oxygen at baseline and does not drive. Pt has no HH or SNF history. Pt has completed DPOA/ advanced directive, Tatiana Isabel [phone]. Copy of DPOA on patient's chart. Pt has no intermediate designer care or VA benefits. Pt to likely discharge home with [facility]. Patient completed a hospice info. visit and she is in agreement. SW attempted to call [facility] to find out what day hospice services could start, but there was no answer. SW left a message requesting a call back. Patient's sister is supportive. SW provided phone number and plan on white board in room. SW will continue to follow. Plan:Pt to likely discharge home with [facility]. Patient completed a hospice info. visit and she is in agreement. SW attempted to call [facility] to find out what day hospice services could start, but there was no answer. SW left a message requesting a call back. Patient's sister is supportive. SW will continue to follow. Cece Childress LMSW, BERNARDO Addendum: 04/17/16 at 1018 by CECE SEYMOUR Amended: Links added.
[2016-04-16] MEDS: Furosemide 10 mg/mL 2 mL Inj IV PRN ×2 (16:02→18:21)
--- NOTE | 2016-04-16 16:30 | NUR ---
spiritual care: follow up Pt was very tired and in a lot of pain this evening so I offered a blessing and oriented her to the presence of spiritual care. Spiritual care will continue to follow as needed.
--- NOTE | 2016-04-16 17:13 | NUR ---
Drains / Blood Specialty drain on right ABD draining purulent brown white pink tinged down into collection bag. Pleurx drain on left side drained with Pleurx vacum bottle. 650ml out once. Pt has been receiving blood 2 units PRBCs. Almost complete with her second unit with no reactions noted. Care continues
--- NOTE | 2016-04-16 17:56 | NUR ---
Wound Care Checked on patients fistula bag setup yesterday for draining right lower quadrant ulceration. System is working well to protect periwound skin and has drained 300 ML of tannish colored effluent. There is an extra system left in the room in case this system should malfunction over the weekend. Wound Care to recheck on this patient on Wednesday 04/19.
--- NOTE | 2016-04-16 22:02 | PCM.PNMED ---
Subjective Date of Service Apr 16, 2016 Subjective The patient is feeling about the same. She says she is still very uncomfortable with abdominal distention and pain. She has no other new complaints. Exam Vital Signs Vital Sign - Last Date Time Temp Pulse Resp B/P Pulse Ox O2 Delivery O2 Flow Rate FiO2 04/16/16 19:58 36.4 71 24 133/82 94 Room Air 2.00 Intake and Output 04/15/16 04/15/16 04/16/16 Cumulative From/Thru 15:00 23:00 07:00 04/15/16 14:15 - 04/16/16 05:40 Intake Total 459 ml 668 ml 1127 ml Output Total 350 ml 1500 ml 1850 ml Balance 109 ml -832 ml -723 ml Intake Oral 459 ml 437 ml 896 ml IV Total 231 ml 231 ml Output Urine Total 350 ml 1250 ml 1600 ml Drainage Total 250 ml 250 ml # Bowel Movements 0 0 Exam General: Patient was speaking with the [facility] [place] intake person at the time of my arrival. HEENT: Head is atraumatic and normocephalic. Eyes: Pupils are equally round and reactive to light and accommodation. Extraocular muscles are intact. Sclera are white, anicteric. Subconjunctival mucosa is pink. Ears and nose are unremarkable. Oropharynx: There is no mucosal lesions, there is no thrush, there is no pharyngitis. Neck: Is supple, there are no nodes, or masses or tenderness. Chest: Is clear to auscultation and percussion. There are no rales, rhonchi, wheezes or rubs. Heart: Rate, rhythm is regular. There is no new murmur, rub or gallop. Abdomen: Is morbidly obese and more distended than last admission distended with a large right lower quadrant hernia and fluid wave shift. Bowel sounds are present. Abdomen is tender in the right lower quadrant where there are 2 areas of cellulitis/abscess there is blanching of skin due to likely thinning of skin or pressure from ascitic fluid. The drainage from these lesions appears to be more from subcutaneous edema rather than ascitic fluid. There is some cellulitis around this area. Extremities: Are symmetrical and well perfused. There is 2-3+ pitting edema both lower extremities which is symmetrical. Extremities remain well perfused. Neurologic: There are no focal neurological deficits. Cranial nerves II through XII are intact. There are no sensory or motor deficits. Psychiatric: Patients mood is calm and shows no sign of agitation. Genital: Deferred Rectal: Deferred Lab and Diagnostics Result Diagram: 04/16/16 0540 04/16/16 0500 Microbiology Cultures are pending X-Rays, CTs and MRIs PROCEDURE: X-RAY CHEST, TWO VIEWS ([id number]) INDICATIONS: Possible effusion TECHNIQUE: Two views of the chest were acquired. COMPARISON: [facility], CR, XR CHEST 1VW (PORTABLE), 04/04/2016, 11: 07. FINDINGS: Surgical Changes and Devices: Stable positioning of right IJ chest port. Lungs and Pleura: No pleural effusions or pneumothorax. Decrease in left basilar airspace opacity, which has not resolved. Mediastinum: Mediastinal contours are normal. Heart size is normal. Bones and Chest Wall: No suspicious bony abnormalities. Soft tissues appear unremarkable. IMPRESSION: Decreasing left basilar airspace opacity. Dictated by: Cedric Werner RR Interpreted: Poppy Andres MD on 04/15/2016 at 17:09 Transcribed by: PETER on 04/15/2016 at 22:58 Cardiac Echo Impressions Echocardiogram Report Name: CORIE RAMIREZy Da te: 01/11/2016 Height: 64 in Hospital Exam Location: [facility] Weight: 176 lb Gender: Female BSA: 1.9 m2 : 1950 Age: 65 yrs BP: 94/88 mmHg Reason For Study: PERICARDIAL EFF. CHF Ordering Physician: HOSPITALIST [facility] Performed By: Nicole eBrg Referring Physician: Dr. Heide Lowery Interpretation Summary The left ventricle is normal in size. Left ventricular wall thickness is mildly increased. The ejection fraction is estimated to be 70-75%. LVEF has not changed significantly. There are no focal wall motion abnormalities. Assessment of diastolic parameters indicates normal left ventricular diastolic function and normal filling pressures. The right ventricle is normal in size and function. Right ventricular systolic pressure is estimated to be 31 mmHg plus the clinically estimated CVP which cannot be estimated on this exam. Both atria are normal in size. There is no significant valvular heart disease. The ascending aorta is mildly enlarged. The aortic arch is mildly enlarged. There is a trivial to small pericardial effusion noted. There are no echocardiographic or Doppler indications for cardiac tamponade. Ascites present. Assessment & Plan The patient is a 65-year-old female, with ovarian CA and malignant effusion, who has chemotherapy on hold due to current abdominal wall infection with Pseudomonas, who sent by cancer Center complaining of increasing pain and redness in the right lower quadrant area of her abdomen # Abdominal wall cellulitis with abdominal wall abscess and Pseudomonas peritonitis. Two areas of Cellulitis on abdominal wall , with acute on chronic exacerbation despite home IV antibiotics. Patient has failed home IV antibiotic therapy - Dr. Max Kuhn of general surgery has been consulted to see the patient appreciate his consult and will follow his recommendations - Wound care team has seen the patient and patient was evaluated with Yoshi and Amy appreciate their help in management of this very difficult case - We will continue IV cefepime and for pseudomonal coverage and will add Flagyl for anaerobic coverage - Dr. Winkler of oncology was consulted and saw the patient today. We appreciate his input will follow his recommendations. - Palliative care was consulted and appreciate Dr. Benz's help. # Infected malignant ascites s/p Pleurx drain - catheter patency study XR done 04/01 and is patent, - Continue to drain fluid as needed - further plan as noted above # Chronic hypoxic respiratory failure, stable. - c/w home O2 2 L # Normocytic anemia requiring transfusion in the past, recurrent 2 months -We will plan on transfusing 1 unit of packed red blood cells in a.m. followed by Lasix # Acute hypomagnesemia - Replete and will follow and replete as needed # Acute hypokalemia - We will replete and will follow and replete further as needed # Goals of care - Appreciate palliative care consult. will f/u w/ recs Chronic issues known prior to admission, present on admission: # History of Loculated ascites, Bacterial enterococcus peritonitis, treated with daptomycin January 2016 # Stage IIIc ovarian cancer, breast cancer 2006 treated with radiation/lobectomy , BRCA 1 positive - further treatment recs per oncology # Diabetes type 2. Neuropathic pain - c/w current coverage # Hypothyroidism. - c/w Levothyroxine # Chronic pain, neuropathic in nature, previously opiate dependent, stable # Hyperlipidemia. Hypertension. Obesity. - c/w home meds # Depression. stable Disposition: Patient is likely to be here more than 2 minutes for evaluation and treatment of the above problem. Therefore, patient was admitted as an inpatient. Pain Evaluation: Adequate Pain Control VTE Prophylaxis: Sub-Q Enoxaparin VTE Mechanical Devices: Intermittant Pneumatic CD Resuscitation Status: DNR/DNI:Do Not Resuscitate/Intubate Soto Farr MD Apr 16, 2016 22:02
--- NOTE | 2016-04-16 22:56 | NUR ---
Blood Cultures Positive staph cocci in both anaerobic bottles. FYI page sent to Dr. Peterson @ [phone]. Currently on Cefepime 2000mg IV Q12H & Flagyl 500mg PO Q8H.
[2016-04-17] MEDS: Cefepime 2,000 mg/100 mL D5W Minibag Plus IV SCH ×6 (00:15→21:09)
[2016-04-17 04:59] VITALS: BP 114/74; PULSE 74; RESP 20; O2SAT 94
[2016-04-17] MEDS: 0.9% Sodium Chloride 250 ML IV SCH (05:43)
[2016-04-17 05:47] LABS: BASOPHILS % (AUTO) 0.2 % (0-3); EOSINOPHILS % (AUTO) 1.1 % (0-5); MONOCYTES % (AUTO) 8.4 % (4-12); NEUTROPHILS % (AUTO) 77.4 % (40-74); Platelet Count 191 bil/L (150-400)
[2016-04-17 07:30] LABS: Magnesium 1.5 mg/dL (1.6-2.6)
[2016-04-17] MEDS: HYDROmorphone 0.5 mg/0.5 mL iSecure Syringe IVPUSH PRN (08:31)
[2016-04-17 08:36] VITALS: PULSE 81; RESP 17; O2SAT 92
--- NOTE | 2016-04-17 10:33 | NUR ---
Evaluation completed. Please go to "Notes" then click on "Assessments and Notes" (bottom left corner of screen). Then select appropriate discipline tab on top of screen.
--- NOTE | 2016-04-17 11:03 | NUR ---
Social Work- Readiness for Discharge Data: EMR reviewed. Pt is on day 2 of hospitalization for abdominal wall necrosis per H&P. Per MD in rounds, pt is not medically stable, anticipate discharge tomorrow. JHON spoke with Jael from [facility], confirming that pt will be opened on hospice services 04/18/16. SW spoke with pt at bedside regarding discharge plan. Pt feels that she is able to return home at discharge with the caregivers that she has through [facility] and [facility] . Pt to discharge home with friend to transport via POV. SW continues to follow. Assessment: Pt who will return home with [facility] caregivers and [facility] . Plan: Anticipate pt to discharge tomorrow. Pt to open with [facility] on Tuesday. Pt to discharge home with friend to transport via POV. SW continues to follow. FREDERIC Sanchez
[2016-04-17 14:33] VITALS: BP 120/75; PULSE 82; RESP 18; O2SAT 97
--- NOTE | 2016-04-17 17:44 | PCM.PNMED ---
Subjective Date of Service Apr 17, 2016 Subjective She is seen today in follow-up for malignant ascites with abdominal wall fistulation. She is looking quite uncomfortable but says that she is not in any great pain. She does not seem to have realistic plans for caregiving at home other than expecting hospice to do more than they typically do. She has a caregiver who comes twice a week. She has a sister who lives some distance away and visits occasionally. She is estranged from one son and also has another son who is actively using drugs. She does feel stronger after her blood transfusion yesterday. Exam Vital Signs Vital Sign - Last Date Time Temp Pulse Resp B/P Pulse Ox O2 Delivery O2 Flow Rate FiO2 04/17/16 08:36 81 17 92 Nasal Cannula 1.00 04/17/16 04:59 36.2 114/74 Intake and Output 04/16/16 04/16/16 04/17/16 Cumulative From/Thru 15:00 23:00 07:00 04/15/16 14:15 - 04/17/16 05:52 Intake Total 198 ml 1840 ml 1270 ml 4435 ml Output Total 1900 ml 1960 ml 5710 ml Balance 198 ml -60 ml -690 ml -1275 ml Intake Oral 1040 ml 360 ml 2296 ml IV Total 198 ml 200 ml 910 ml 1539 ml Packed Cells 600 ml 600 ml Output Urine Total 950 ml 1750 ml 4300 ml Drainage Total 950 ml 210 ml 1410 ml # Bowel Movements 0 Exam HEENT: Head is atraumatic and normocephalic. Chest: Is clear to auscultation and percussion. There are no rales, rhonchi, wheezes or rubs. Heart: Rate, rhythm is regular. There is no new murmur, rub or gallop. Abdomen: Is morbidly obese and more distended than last admission distended with a large right lower quadrant hernia and fluid wave shift. Bowel sounds are present. Abdomen is tender in the right lower quadrant where there are 2 areas of cellulitis/abscess there is blanching of skin due to likely thinning of skin or pressure from ascitic fluid. The drainage from these lesions appears to be ascitic fluid. There is some cellulitis around this area. There is a large ostomy bag over this new fistula that has collected a lot of milky brownish fluid. Extremities: Are symmetrical and well perfused. There is no edema today Neurologic: There are no focal neurological deficits. Psychiatric: Patients mood is calm and shows no sign of agitation. IVs and Medications Medications Reviewed: Medications were reviewed in detail Lab and Diagnostics Result Diagram: 04/17/1652904/17/16529 Microbiology Cultures are pending X-Rays, CTs and MRIs PROCEDURE: X-RAY CHEST, TWO VIEWS ([id number]) INDICATIONS: Possible effusion TECHNIQUE: Two views of the chest were acquired. COMPARISON: [facility], CR, XR CHEST 1VW (PORTABLE), 04/04/2016, 11: 07. FINDINGS: Surgical Changes and Devices: Stable positioning of right IJ chest port. Lungs and Pleura: No pleural effusions or pneumothorax. Decrease in left basilar airspace opacity, which has not resolved. Mediastinum: Mediastinal contours are normal. Heart size is normal. Bones and Chest Wall: No suspicious bony abnormalities. Soft tissues appear unremarkable. IMPRESSION: Decreasing left basilar airspace opacity. Dictated by: Cedric Werner RR Interpreted: Poppy Andres MD on 04/15/2016 at 17:09 Transcribed by: PETER on 04/15/2016 at 22:58 Cardiac Echo Impressions Echocardiogram Report Name: CORIE RAMIREZ Da te: 01/11/2016 Height: 64 in Hospital Exam Location: [facility] Weight: 176 lb Gender: Female BSA: 1.9 m2 : 1950 Age: 65 yrs BP: 94/88 mmHg Reason For Study: PERICARDIAL EFF. CHF Ordering Physician: HOSPITALIST [facility] Performed By: Nicole Berg Referring Physician: Dr. Heide Lowery Interpretation Summary The left ventricle is normal in size. Left ventricular wall thickness is mildly increased. The ejection fraction is estimated to be 70-75%. LVEF has not changed significantly. There are no focal wall motion abnormalities. Assessment of diastolic parameters indicates normal left ventricular diastolic function and normal filling pressures. The right ventricle is normal in size and function. Right ventricular systolic pressure is estimated to be 31 mmHg plus the clinically estimated CVP which cannot be estimated on this exam. Both atria are normal in size. There is no significant valvular heart disease. The ascending aorta is mildly enlarged. The aortic arch is mildly enlarged. There is a trivial to small pericardial effusion noted. There are no echocardiographic or Doppler indications for cardiac tamponade. Ascites present. Assessment & Plan The patient is a 65-year-old female, with ovarian CA and malignant effusion, who has chemotherapy on hold due to current abdominal wall infection with Pseudomonas, who sent by cancer Center complaining of increasing pain and redness in the right lower quadrant area of her abdomen # Abdominal wall cellulitis with abdominal wall abscess and Pseudomonas peritonitis. Two areas of Cellulitis on abdominal wall , with acute on chronic exacerbation despite home IV antibiotics. Patient has failed home IV antibiotic therapy - The immediate impression today is that of a cutaneous fistula into the peritoneal fluid. There is large amounts of brownish fluid in the bag collecting into a Palencia catheter. - Wound care team has seen the patient and patient was evaluated with Yohsi and Amy appreciate their help in management of this very difficult case - We will continue IV cefepime and for pseudomonal coverage and will add Flagyl for anaerobic coverage - Dr. Winkler of oncology was consulted and saw the patient yesterday. We appreciate his input will follow his recommendations. - Palliative care was consulted and appreciate Dr. Benz's help. -Hospice is arranging a hospital bed and other assistance planned for Tuesday. She will likely go home tomorrow in preparation. # Infected malignant ascites s/p Pleurx drain - catheter patency study XR done 04/01 and is patent, - Continue to drain fluid as needed - further plan as noted above # Chronic hypoxic respiratory failure, stable. - c/w home O2 2 L # Normocytic anemia requiring transfusion in the past, recurrent 2 months -She has improved symptoms with recent transfusion. # Acute hypomagnesemia - Replete and will follow and replete as needed # Acute hypokalemia - We will replete and will follow and replete further as needed # Goals of care - Appreciate palliative care consult. will f/u w/ recs Chronic issues known prior to admission, present on admission: # History of Loculated ascites, Bacterial enterococcus peritonitis, treated with daptomycin January 2016 # Stage IIIc ovarian cancer, breast cancer 2006 treated with radiation/lobectomy , BRCA 1 positive - further treatment recs per oncology Pain Evaluation: Adequate Pain Control VTE Prophylaxis: Sub-Q Enoxaparin VTE Mechanical Devices: Intermittant Pneumatic CD Resuscitation Status: DNR/DNI:Do Not Resuscitate/Intubate El Martinez MD Apr 17, 2016 10:26
--- NOTE | 2016-04-17 18:27 | NUR ---
Activity Pt using BSC in room, unable to have a BM today, medications and prune juice given. Pt pain well controlled with scheduled meds and one IVP dose. Pt has right dressing in place draining to abebe bag with brown output and left abdominal pleurix drain that she maintains. Wound care is following. Pt is hopeful that she will be able to go home soon with hospice. Pt on 2L NC and uses home O2.
[2016-04-17 21:00] VITALS: BP 136/89; PULSE 91; RESP 20; O2SAT 94
[2016-04-18 05:47] LABS: BASOPHILS % (AUTO) 0.3 % (0-3); MONOCYTES % (AUTO) 9.5 % (4-12); Mean Corpuscular Hemoglobin 28.6 pg (27.0-35.0); Mean Corpuscular Volume 97.2 fL (81-100); NEUTROPHILS % (AUTO) 71.3 % (40-74); Platelet Count 187 bil/L (150-400)
[2016-04-18 06:09] LABS: Magnesium 1.4 mg/dL (1.6-2.6)
[2016-04-18 06:30] VITALS: BP 134/71; PULSE 66; RESP 20; O2SAT 97
[2016-04-18] MEDS ORDERED: Magnesium Sulf 2 Gm/50mL Water 2 GM in IV Premix 1 EACH IV ONE (07:20)
--- NOTE | 2016-04-18 07:20 | NUR ---
Activities Pt able to get OOB to BSC safely. She is eager to go home. No overt complications noted.
[2016-04-18 08:02] VITALS: PULSE 81; RESP 17; O2SAT 92
[2016-04-18] MEDS: Cefepime 2,000 mg/100 mL D5W Minibag Plus IV SCH ×2 (09:52)
[2016-04-18] MEDS ORDERED: METR500T PO (10:10)
[2016-04-18] MEDS ORDERED: OXYC10TA8 PO (10:10)
[2016-04-18] MEDS ORDERED: Furosemide 10 mg/mL 2 mL Inj IVPUSH ONE (10:10)
[2016-04-18] MEDS ORDERED: PREG150C PO (10:10)
[2016-04-18] MEDS ORDERED: AMOX-366 PO (10:12)
--- NOTE | 2016-04-18 10:16 | NUR ---
Social Work- Discharge Data: EMR reviewed. Pt is on day 3 of hospitalization for abdominal wall necrosis per H&P. Pt to discharge today. Pt will [facility] with [facility]. Pt to discharge home with [facility] caregivers, [facility] , and family support. Pt's friend to transport via POV. Assessment: Pt who will return home with [facility] caregivers and [facility] . Plan: Pt to discharge today. Pt to open with [facility] on Tuesday. Pt to discharge home with friend to transport via POV. FREDERIC Sanchez
--- NOTE | 2016-04-18 10:18 | PCM.DIMED ---
Discharge Instructions Date of Service Apr 18, 2016 Dates of Hospitalization Apr 15, 2016 at 12:39 Discharge Diagnosis Discharge Diagnosis Right Abdominal Peritoneal Cutaneous Fistula Right Abdominal cellulitis Gram Positive Bacteremia Abdominal wall cellulitis with abdominal wall abscess and history of Pseudomonas peritonitis. Two areas of Cellulitis on abdominal wall , with acute on chronic exacerbation despite home IV antibiotics. Patient has failed home IV antibiotic therapy Infected malignant ascites s/p Pleurx drain Chronic hypoxic respiratory failure, stable. Normocytic anemia requiring transfusion in the past, recurrent 2 months Acute hypomagnesemia Acute hypokalemia Metastatic Ovarian Carcinoma Medication Instructions Resume your use of home oxygen Diet No restrictions Activity No restrictions (as tolerated) Call your provider Fever or Chills, Shortness of breath (Call Hospice or Dr. Lowery), Chest pain, Vomitting, Excessive diarrhea, Weakness (unilateral) Patient Instructions Follow up with the wound care center for managment of the peritoneal cutaneous fistula drainage system. Follow-up Provider: Heide Lowery MD Follow-up with PCP in: 1 week El Martinez MD Apr 18, 2016 10:18
[2016-04-18] MEDS: 0.9% Sodium Chloride 250 ML IV SCH (14:05)
--- NOTE | 2016-04-18 14:15 | NUR ---
Discharge Education/Discharge Patient DC home with hospice via transportation with sister. IV therapy on unit to reaccess and change Portacath dressing. Final IV anitbiotic complete. Patient and family educated on increasing signs and symptoms of disease process. Hospice will arrive at home at 11am 04/19/16 for initial assessment and bed delivery. Patient is tearful and anxious at this time, but verbalizes understanding of DC instructions. Abdominal dressings in place at time of DC. RLQ abcess drain intact with new Eakins fistula and wound drain in place.
[2016-04-18] MEDS ORDERED: FURO-128 PO (14:39)
--- NOTE | 2016-04-18 16:28 | PCM.DC.MED ---
Discharge Summary Date of Service Apr 18, 2016 Dates of Hospitalization Date of Hospital Admission Apr 15, 2016 at 12:39 Date of Discharge: Apr 18, 2016 Providers: Admitting Physician: Soto Farr MD Primary Care Physician: Heide Lowery MD Attending Physician: Soto Farr MD Diagnosis at Time of Discharge Diagnosis at Time of Discharge Right Abdominal Peritoneal Cutaneous Fistula Right Abdominal cellulitis Gram Positive Bacteremia Abdominal wall cellulitis with abdominal wall abscess and history of Pseudomonas peritonitis. Two areas of Cellulitis on abdominal wall , with acute on chronic exacerbation despite home IV antibiotics. Patient has failed home IV antibiotic therapy Infected malignant ascites s/p Pleurx drain Chronic hypoxic respiratory failure, stable. Normocytic anemia requiring transfusion in the past, recurrent 2 months Acute hypomagnesemia Acute hypokalemia Metastatic Ovarian Carcinoma Consultations [address] [address] CONSULTATION REPORT PATIENT: CORIE RAMIREZ : 1950 MR#: [id number] ADMIT: 04/15/2016 JOB ID: [id number] DATE OF SERVICE: 04/15/2016 CHIEF COMPLAINT AND IDENTIFICATION: Dr. Winkler and Dr. Farr asked me to see this woman regarding her right lower quadrant wounds specifically, and her skin integrity and overall situation in general. HISTORY OF PRESENT ILLNESS: A 65-year-old woman with a history of stage IV ovarian cancer. Not a lot of tumor burden right now, but she has had a problem what chronic ascites that has required Pleurx catheter placement. She has had some trouble with infections in this PleurX catheter but these have been addressed in the past. Her situation is also complicated by her morbid obesity, her ventral hernia on the right lower abdomen from her previous surgery, and her social situation where she lives alone with her cats, without a lot of resources from family and friends. She was recently in the hospital between April 01 and April 09, treated with vancomycin, clindamycin, and meropenem for abdominal wall cellulitis and Pseudomonas peritonitis with sepsis which improved. At that time she was also seen by Palliative Care. I spoke with the patient today regarding her situation. See below for our discussion. PHYSICAL EXAMINATION: Vital signs are pending. She is tearful. She has a large pannus. On the left upper quadrant she has a PleurX catheter with some surrounding cellulitis versus a chronic induration, no purulence. Her right lower quadrant skin integrity has two circular lesions that are approximately 2 cm in diameter with superficial skin breakdown. There is a great deal of blanching erythema consistent with either cellulitis or simply stress on the skin. There is weeping from these central areas which I believe is subcutaneous edema weeping out rather than an ascitic leak through the skin. LABORATORY DATA: White count is 14.5, hematocrit is 29. She has metamyelocytes and myelocytes. Chemistry shows a low serum iron, low TIBC consistent with mixed anemia of chronic disease and iron deficiency, although her serum ferritin is 821. Her albumin is only 2.5. IMAGING: I have reviewed her CT from April 04, 2016. IMPRESSION/PLAN: I had a discussion with the patient regarding the fact that she does not have a good solution to this problem. She has impending skin breakdown in the right lower quadrant by her hernia and if this opens up she will have a tremendous ascitic leak that will be impossible to be surgically repaired or to be controlled with wound care. We discussed the relative importance for her of being out of the hospital versus further treatment. I discussed her case with Dr. Winkler and neither one of us sees any way that she will ever be a candidate for further chemotherapy. She and I have discussed whether she has ever entertained the idea of hospice and she tells me that Dr. Lowery, her PCP, has brought it up but that she did not want to go that route just yet. I have encouraged her to consider how important it is for her to be out of the hospital and/or at her own home. My suggestion is that during this hospitalization we have wound care see her, try to maximize her skin integrity to maximize the time she will have before this breaks down, but also get her set up with hospice to help her be at home. I will continue to follow her while she is in the hospital. Max Kuhn MD 04/15/16 2030 <Electronically signed by Max Kuhn MD> 04/18/16 1515 April 15, 2016. HISTORY OF PRESENT ILLNESS: This patient is being kindly admitted by Dr. Farr of the hospitalist service for management of a growing ulcerated and necrotic area of the right lower abdominal wall which is likely to break down in the next few days in the setting of malignant and infected ascites, ovarian cancer relapsed, and indwelling PleurX catheter for daily drainage of ascites. The patient has been hospitalized multiple times for infected malignant ascites and now has a new problem in developing a necrotic wound in the right lower abdominal wall in an area where the abdominal wall is extremely thin due to long-term herniation. This patient was evaluated by Dr. Kuhn today of surgery who felt that there is no surgical intervention possible, but that she needs wound care and evaluation for how to best manage this progressive lesion. She will also be consulted on by wound care. DIAGNOSES: 1. Multiple recent hospitalizations for peritonitis and infected ascites associated with metastatic ovarian carcinoma and malignant ascites, most recent hospitalization April 01 through April 09, 2016. 2. Currently developing ulcerated and necrotic areas in the right lower quadrant with erythema suggestive of impending tissue breakdown and probable fistulization in the near future with chronic ascitic leakage expected. 3. Recurrent ovarian carcinoma treated with Taxol/carboplatin chemotherapy up until the beginning of March 2016 with a biochemical response but no improvement in quality of care and probably complicating treatment of her infection. 4. The patient is BRCA1 positive and has had a history of both breast and ovarian cancer and this is a relapse of her ovarian cancer. 5. The patient has had other problems including right lower lobe pneumonia and community-acquired pneumonia, hypothyroidism, diabetes type 2, neuropathic pain, hyperlipidemia, obesity, and hypertension, as well as a large abdominal wall hernia in the right lower quadrant. Her recent hospitalizations were for peritonitis February 022015, February 092015, January 082015, and more recently March 092016 for infected ascites and cellulitis left lower abdomen, and finally April 012016 for peritonitis Pseudomonas. 6. The patient has been managed also with antibiotics and is currently on cefepime 2 g q.12 h. which she self administers at home for infected ascites. 7. Dr. Porter has also been consulted. HISTORY OF PRESENT ILLNESS: This is a patient who developed relapse of ovarian cancer and was treated initially with Taxol and carboplatin, but developed infected ascites after placement of a PleurX catheter for symptomatic relief. It was clear by March that additional chemotherapy was not causing any improvement in quality of life although she had had a biochemical response with a marked drop in CA-125 as her ascites was not bleeding and her infection was not clearing. I indicated during the last admission that the patient is no longer a candidate for chemotherapy. If she were to improve, she might be a candidate for a PARP inhibitor being BRCA1 positive, but not now. She has been managed at home with IV antibiotics, which she administers to herself, and has [facility] checking on her as well. She states that during the past 3-4 days in addition to the cellulitis of the left lower abdominal wall which has been treated in which is associated with a PleurX catheter, she has developed pain and erythema to the right lower abdominal wall and has developed necrotic-appearing lesions in that area as described below. She denies fevers, syncope, or other constitutional symptoms suggestive of sepsis. CURRENT MEDICATIONS: 1. Albuterol HFA. 2. The patient is on 2 L of oxygen. This is mainly because of decreased inspiratory volume due to ascites. 3. Atorvastatin 40 mg. 4. Iron polysaccharide 150 mg. 5. Aspirin 81 mg. 6. Diclofenac one application topically to knees daily. 7. Doxepin two 250 mg capsules at h.s. 8. Fluoxetine 40 mg daily. 9. Lyrica 150 mg t.i.d. for neuropathic pain. 10. Hydroxyzine 25 mg t.i.d. 11. Oxycodone 10 mg q.4 h. p.r.n. 12. Ondansetron 4 mg q.8 h. p.r.n. 13. Levothyroxine 100 mcg daily. 14. Clotrimazole 1 application to feet b.i.d. 15. Cholecalciferol/cyanocobalamin/folic acid. 16. As noted above she is on cefepime 2 g IV q.12 h. SOCIAL HISTORY: The patient still lives alone. She has [facility] coming to see her. She very much wants to stay out of a care home, although her care is complex, but she has been able to self administer her antibiotics. I have been in contact with her sister who lives south of here, I believe in either [place] or [place], and who has been supportive of her and understands the gravity of her situation. REVIEW OF SYSTEMS: The patient is mainly affected by the pain and the swelling in the right lower abdomen. She denies fevers, chills, night sweats. Head and neck: No headaches, visual changes. She has a dry mouth. Respiratory: She requires 2 L of oxygen but gets around with a walker. She actually took a taxi to get to the clinic today and tries to be very independent. GI: She states her appetite is decreased but she is still eating and she has daily bowel movements. The ascitic fluid does not seem to affect her ability to eat or digest food and she has continued abdominal pain and discomfort related to her ascites. : No dysuria or hematuria. Musculoskeletal: She has extensive edema on both lower extremities but she is able walk and get around on her own 2 feet with a walker. The remainder of the 14-system review is negative. PHYSICAL EXAMINATION: The patient's temp was 36.5, pulse 101, respiratory rate 23, blood pressure 154/92, pulse ox 88% on room air. In general, she looks weak and tired but is surprisingly in no real acute distress. Head and neck: Pupils equal, round, and reactive. No icterus. No conjunctivitis. Oral and pharyngeal mucosa is pink and moist. Neck without thyromegaly or masses or adenopathy. Lungs: Scattered rhonchi. Decreased inspiratory volume. Patient is using O2 2 L. Cardiac: Rhythm is regular at 101, without murmur, but she has 3+ peripheral edema. Abdomen: Massive panniculus. There is a large right lower quadrant abdominal wall hernia. There is a PleurX catheter in the left lower quadrant with some mild cellulitis surrounding that. The most striking finding is the presence of approximately five necrotic round-appearing whitish lesions ranging from 1-2 cm in the right lower quadrant with surrounding erythema suggestive of cellulitis with a suggestion of tissue breakdown. There is no fistula but there is drainage of serous fluid from these lesions. The whole area covers approximately 10 x 10 cm. Extremities: Show 3+ edema. LABORATORY VALUES: The white count is 11.3, hemoglobin 7.4, hematocrit 26.3, and platelets 212, 79.6 segs, 12.9 lymphs. The BUN and creatinine are 8 and 0.43. Electrolytes normal, except for potassium 3.2 and carbon dioxide 31. Magnesium 1.4. Calcium 8.3. ALT, AST, alkaline phosphatase, and bilirubin normal. Albumin 2.2. The CA-125 had dropped from 3509 prior to chemotherapy to 198.1 by February 23 after chemotherapy. ASSESSMENT AND RECOMMENDATIONS: This is a patient with a complicated course with advanced ovarian carcinoma, malignant and infected ascites, whose main threat to survival right now is the potential for massive tissue breakdown in the right lower quadrant due to these necrotic lesions. The abdominal wall in the right lower quadrant has been paper-thin for some time due to the hernia which could not be repaired and now is complicated by the development of some tissue necrosis and cellulitis. Dr. Kuhn kindly agreed to see the patient to see what sort of palliative or toileting measures could be undertaken to help her at least symptomatically since clearly a surgical approach is not possible and the patient cannot receive any more chemotherapy. The patient agreed to be admitted for surgical and wound care evaluation basically to manage this area of tissue breakdown and hopefully to minimize the impact on her quality of life. This is a very tough situation with no good solution available. The patient understands that she may from this and does not wish to be FULL CODE but has not yet agreed to go onto hospice and wants all measures short of CPR. Lance Winkler MD 04/15/16 PATIENT NAME: CORIE RAMIREZ : 1950 MR#: [id number] Date of Service Apr 15, 2016 Date of Hospital Admission: Apr 15, 2016 at 12:39 Date of Palliative Consult: Apr 15, 2016 Requesting Provider: Max Kuhn MD Reason Palliative Care Consult: Goals of Care Discussion Hospital Unit @time of consult: Orthopedic/Surgical Care Palliative Care Recommendation Summary of palliative recommendations: -Symptom management (Pain/other)- PAIN--Has increased her oxycodone to 20 mg Q 4 hour to get partial control. She has not tolerated LA opiates but she is also vague on what has caused her problems--?MS vs methadone Will order this routinely Also hydromorphone 0.5-1 mg IV Q 2 hour PRN Abd wall hernia-apparently not surgically approachable. will be followed by surg -DPOA/Advanced Directives/POLST-She identifies her sister Tatiana as DPOAHC. After much discussion she is willing to change code status to DNR/DNI and no feeding tube -Family/emotional support-Tatiana sister. Distanced from her son--feels it is his job to contact her -- not the other way around. -Spiritual support-not interested Problems: End of Life Preferences DNR/DNI/limited Resuscitation Status Resuscitation Status: Limited Interventions POLST Updates/Changes Artificially Admin Nutrition: No Artifical Nutrition by Tube Pt History History of Present Illness 65 yo female patient with multiple hospitalizations for complications of malignant ascites including recurrent infections. She has ovarian CA managed by Dr. Winkler that has responded to chemo with decrease in tumor markers but no improvement in ascites. She has a pleurex cath and drains 500-800 cc daily.She was recently hospitalized for pseudomonas peritonitis and abd wall cellulitis. She comes in now with increasing abd wall pain-8 out of 10 for the past few days only partially controlled with increasing her oxycodone to 20 mg Q4 hours. She has been using laxatives with moderate success in controlling constipation. She has been getting weaker, decreased appetite but no fever or chills. She was seen today by Dr. Winkler with a subsequent consult by Dr. Kuhn suggesting no further chemo but also no surgical options for what appeared to be a near necrotic abd wall over a massive hernia. She is in for pain control and wound control. Past Medical History Significant PMH Noted: Hx BRCA with breast CA and ovarian CA obesity abd wall hernia HTN DM2 Hypothyroidism HLD Depression nonsmoker no ETOH Social History Family Members Issues: distanced from her son Social Support: sister Tatiana Living Situation: lives alone with her cats Spiritual Support Spiritual Support not interested Responsive Patient Symptoms Pain (maximium): Moderate Nausea: Mild Depression: Moderate Drowsiness/Sleepiness: Moderate Anorexia: Mild Shortness of Breath: Moderate Constipation only fair control Allergy Allergies Reviewed: Yes (methadone and or morphine caused hallucinations) Medications Current Medications: Current Medications Al Hydrox/Mg Hydrox/Simethicone 30 ml Q6H PRN PO; Start 04/15/16 at 13:05 Ondansetron HCl 4 to 8 mg Q4H PRN IVPUSH; Start 04/15/16 at 13:05 Senna 17.2 mg BID PRN PO; Start 04/15/16 at 13:05 Polyethylene Glycol 17 gm DAILY PRN PO; Start 04/15/16 at 13:05 Acetaminophen 650 mg 650 mg Q4H PRN PO; Start 04/15/16 at 13:05 Cefepime HCl/ Dextrose/Water 100 ml @ 25 mls/hr Q12 IV Last administered on 04/15t 21:49; Admin Dose 25 MLS/HR; Start 04/15/16 at 20:30 Oxycodone HCl 10 mg Q4H PRN PO Last administered on 04/15/16 15:47; Admin Dose 10 MG; Start 04/15/16 at 13:40; Stop 04/15/16 at 16:08; Status DC Oxycodone HCl 20 mg Q4H PO Last administered on 04/15/16 18:26; Admin Dose 20 MG ; Start 04/15/16 at 17:30 Hydromorphone HCl 1 mg Q3H PRN IVPUSH; Start 04/15/16 at 16:00 Oxycodone HCl 20 mg Q4H PO; Start 04/15/16 at 16:10 Hydromorphone HCl 0.5-1 MG Q3H PRN IVPUSH; Start 04/15/16 at 16:10 Scheduled Aspirin (Aspirin) 81 Mg Tablet 81 MG PO DAILY Atorvastatin Calcium (Atorvastatin Calcium) 40 Mg Tablet 40 MG PO HS Cholecalciferol (Vitamin D3) (Vitamin D) 1,000 Unit Capsule 2,000 UNIT PO DAILY Cyanocobalamin/Folic Acid (Vitamin D99-[place]ezuc Acid Tablet) 1 Each Tablet 1 EACH PO DAILY Doxepin (Doxepin) 50 Mg Capsule 2 CAP PO HS Fluoxetine (Fluoxetine) 40 Mg Capsule 40 MG PO DAILY Iron Polysaccharides Complex (Ferrex 150) 150 Mg Capsule 150 MG PO BID Levothyroxine (Levothyroxine) 100 Mcg Tablet 100 MCG PO DAILY Pregabalin (Lyrica) 150 Mg Capsule 150 MG PO TID Scheduled PRN Albuterol HFA (Proair HFA) 8.5 Gm Hfa.aer.ad 2 PUFFS IH Q4 PRN PRN For Shortness of Breath Clotrimazole (Athlete's Foot) 1 % Cream..g. 1 APPLIC TOPICAL TID PRN PRN dry cracking skin on feet Diclofenac Sodium (Diclofenac Sodium) 1 % Gel..gram. 1 APPLIC TOP PRN PRN PRN KNEE PAIN Ondansetron ODT (Ondansetron ODT) 4 Mg Tab.rapdis 4 MG PO q8hr PRN PRN For Nausea hydrOXYzine Hcl (HydrOXYzine Hcl) 25 Mg Tablet 25 MG PO TID PRN PRN For Anxiety or Agitation oxyCODONE (oxyCODONE) 10 Mg Tablet 10 MG PO Q4H PRN PRN For Pain Objective Findings Exam Vital Sign - Last Date Time Temp Pulse Resp B/P Pulse Ox O2 Delivery O2 Flow Rate FiO2 04/15/16 21:52 Supplement Oxygen 04/15/16 19:49 36.5 86 16 127/74 97 2.00 Objective moderate distress-emotionally and pain 09/23 General: Alert/Oriented x3 HEENT: PERRLA, EOMI, Scleral Anicteric Heart: Regular Rate/Rhythm Lungs: Clear to Auscultation, Wheezes Abdomen: Tenderness to Palpation, Distended, Ascites Neuro: Cranial Nerve 3-12 Intact, Other Lab/Diagnostics Lab and Imaging results reviewed in detail in EMR. Patient/Family Conference Members Present Family Members Present patient and later discussion with Tatiana sister at patient's request Medical Team Members Present? [facility] Discussion/Goals of Care Discussion FAMILY UNDERSTANDING OF DISEASE: Patient with significant distress due to pain but more so with consideration of what is ahead. She has not been able to share severity of illness with her sister who is her only support. She continues to hope for another treatment option. Her emotional distress would indicate that she is starting to understand her issues. She has ovarian CA but now her abd wall necrosis may cause her demise with sepsis. She feels hospice is "giving up"--reviewed benefits of support and establishing goals of care to be at home with her pets and support and not in hospital. Dr. Kuhn supporting this route as has been Dr.Diane Lowery -her PCP. She feels she needs the support of her sister for decision about hospice. DISEASE PROGRESSION/EVIDENCE OF DECLINE: SYMPTOM BURDEN: GOALS: HOPES/WORRIES: Patient is afraid to give up and afraid to not have Dr. Winkler who has helped her thru all this Time spent Total time 75 minutes; >50% face to face with patient and/or family, providing counselling regarding plans and recommendations, and in care coordination with his/her medical teams. Includes discussion with and I also spent an additional [ ] minutes counseling for advanced care planning with the patient/the patients family/the surrogate decision maker. Stephani Benz MD Procedures XRay, CTs & MRIs PROCEDURE: X-RAY CHEST, TWO VIEWS ([id number]) INDICATIONS: Possible effusion TECHNIQUE: Two views of the chest were acquired. COMPARISON: [facility], CR, XR CHEST 1VW (PORTABLE), 04/04/2016, 11: 07. FINDINGS: Surgical Changes and Devices: Stable positioning of right IJ chest port. Lungs and Pleura: No pleural effusions or pneumothorax. Decrease in left basilar airspace opacity, which has not resolved. Mediastinum: Mediastinal contours are normal. Heart size is normal. Bones and Chest Wall: No suspicious bony abnormalities. Soft tissues appear unremarkable. IMPRESSION: Decreasing left basilar airspace opacity. Dictated by: Cedric Werner RRAdriano Interpreted: Poppy Andres MD on 04/15/2016 at 17:09 Transcribed by: PETER on 04/15/2016 at 22:58 Cardiac Echo Impression Echocardiogram Report Name: CORIE RAMIREZ Da te: 01/11/2016 Height: 64 in Hospital Exam Location: [facility] Weight: 176 lb Gender: Female BSA: 1.9 m2 : 1950 Age: 65 yrs BP: 94/88 mmHg Reason For Study: PERICARDIAL EFF. CHF Ordering Physician: HOSPITALIST [facility] Performed By: Nicole Berg Referring Physician: Dr. Heide Lowery Interpretation Summary The left ventricle is normal in size. Left ventricular wall thickness is mildly increased. The ejection fraction is estimated to be 70-75%. LVEF has not changed significantly. There are no focal wall motion abnormalities. Assessment of diastolic parameters indicates normal left ventricular diastolic function and normal filling pressures. The right ventricle is normal in size and function. Right ventricular systolic pressure is estimated to be 31 mmHg plus the clinically estimated CVP which cannot be estimated on this exam. Both atria are normal in size. There is no significant valvular heart disease. The ascending aorta is mildly enlarged. The aortic arch is mildly enlarged. There is a trivial to small pericardial effusion noted. There are no echocardiographic or Doppler indications for cardiac tamponade. Ascites present. Brief History 65 yo female patient with multiple hospitalizations for complications of malignant ascites including recurrent infections. She has ovarian CA managed by Dr. Winkler that has responded to chemo with decrease in tumor markers but no improvement in ascites. She has a pleurex cath and drains 500-800 cc daily.She was recently hospitalized for pseudomonas peritonitis and abd wall cellulitis. She comes in now with increasing abd wall pain-8 out of 10 for the past few days only partially controlled with increasing her oxycodone to 20 mg Q4 hours. She has been using laxatives with moderate success in controlling constipation. She has been getting weaker, decreased appetite but no fever or chills. She was seen today by Dr. Winkler with a subsequent consult by Dr. Kuhn suggesting no further chemo but also no surgical options for what appeared to be a near necrotic abd wall over a massive hernia. She is in for pain control and wound control. Hospital Course The patient is a 65-year-old female, with ovarian CA and malignant effusion, who has chemotherapy on hold due to current abdominal wall infection with Pseudomonas, who sent by cancer Center complaining of increasing pain and redness in the right lower quadrant area of her abdomen # Abdominal wall cellulitis with abdominal wall abscess and Pseudomonas peritonitis. Two areas of Cellulitis on abdominal wall , with acute on chronic exacerbation despite home IV antibiotics. Patient has failed home IV antibiotic therapy - The immediate impression today is that of a cutaneous fistula into the peritoneal fluid. There is large amounts of brownish fluid in the bag collecting into a Palencia catheter. - Wound care team has seen the patient and patient was evaluated with Yoshi and Amy appreciate their help in management of this very difficult case - Completed a course of Flagyl and pseudomonal coverage with cefepime. - Dr. Winkler of oncology was consulted - Palliative care was consulted -Hospice is arranging a hospital bed and other assistance planned for Tuesday. -Gram-positive cocci in 2 blood culture bottles will be treated with Augmentin at home. # Infected malignant ascites s/p Pleurx drain - catheter patency study XR done 04/01 and is patent, - Continue to drain fluid as needed - further plan as noted above # Chronic hypoxic respiratory failure, stable. - c/w home O2 2 L # Normocytic anemia requiring transfusion in the past, recurrent 2 months -She has improved symptoms with recent transfusion. # Acute hypomagnesemia - Multiple episodic dosing of magnesium during this hospitalization. The most recent IV infusion was given this morning. # Acute hypokalemia - Resolved to 3.7 today # Goals of care - Appreciate palliative care consult. Will begin hospice tomorrow Chronic issues known prior to admission, present on admission: # History of Loculated ascites, Bacterial enterococcus peritonitis, treated with daptomycin January 2016 # Stage IIIc ovarian cancer, breast cancer 2005 treated with radiation/lobectomy , BRCA 1 positive - further treatment recs per oncology HEENT: Head is atraumatic and normocephalic. Chest: Is clear to auscultation and percussion. There are no rales, rhonchi, wheezes or rubs. Heart: Rate, rhythm is regular. There is no new murmur, rub or gallop. Abdomen: Is morbidly obese and distended with a large right lower quadrant hernia and fluid wave shift. Bowel sounds are present. Abdomen is no longer tender and the cellulitis around the apparent fistula is resolving. The drainage appears to be ascitic fluid. There is some resolved cellulitis around this area. There is a large ostomy bag over this new fistula that has collected a lot of milky brownish fluid. Extremities: Are symmetrical and well perfused. There is no edema today Neurologic: There are no focal neurological deficits. Psychiatric: Patients mood is calm and shows no sign of agitation. Exam Vital Signs (Last) Date Time Temp Pulse Resp B/P Pulse Ox O2 Delivery O2 Flow Rate FiO2 04/18/16 08:02 81 17 92 Nasal Cannula 1.00 04/18/16 06:30 36.5 134/71 Test 04/15/16 15:07 04/16/16 05:00 04/16/16 05:40 04/16/16 07:35 Prothrombin Time 10.6sec (8.1-12.5) Prothromb Time International Ratio 0.99ratio Phosphorus Level 3.8mg/dL (2.5-4.9) Thyroid Stimulating Hormone (TSH) 1.800uIU/mL (0.450-4.500) Hematology Comments Rbc Urine Color Straw (YELLOW) Urine Appearance Hazy (CLEAR,HAZY) Urine pH 6.5 (5.0-8.0) Urine Specific [place] 1.025 (1.003-1.035) Urine Protein Negativemg/dL (NEG,TRACE) Urine Glucose (UA) Negativemg/dL (NEGATIVE) Urine Ketones Negativemg/dL (NEGATIVE) Urine Occult Blood Trace (NEGATIVE) Urine Nitrite Negative (NEGATIVE) Urine Bilirubin Negative (NEGATIVE) Urine Urobilinogen Normalmg/dL (NORMAL) Urine Leukocyte Esterase Negative (NEGATIVE) Urine RBC 0-2/hpf (0-2) Urine WBC 0-5/hpf (0-5) Urine Epithelial Cells Many/hpf (NONE-MOD) Urine Crystals None seen (NONE SEEN) Urine Bacteria None/hpf (NONE-FEW) Urine Hyaline Casts Occasional/lpf (NONE) Urine Granular Casts Rare (NONE SEEN) Urine Waxy Casts None seen (NONE SEEN) Urine Red Blood Cell Casts None seen (NONE SEEN) Urine White Blood Cell Casts None seen (NONE SEEN) Urine Mucus None seen (None Seen) Urine Trichomonas None seen (NONE SEEN) Urine Yeast Moderate (NONE SEEN) Urinalysis Comment None Urine Culture Reflexed Not indicated Test 04/16/16 19:55 04/18/16 05:20 Procalcitonin 0.09ng/mL (0.00-0.08) White Blood Count 9.4th/mm3 (3.8-10.1) Red Blood Count 3.22mil/mm3 (3.90-5.20) Hemoglobin 9.2g/dL (12.0-15.6) Hematocrit 31.3% (35.0-46.0) Mean Corpuscular Volume 97.2fL (81-100) Mean Corpuscular Hemoglobin 28.6pg (27.0-35.0) Mean Corpuscular Hemoglobin Concent 29.4% (32.0-37.0) Red Cell Distribution Width 23.2% (12.3-15.4) Platelet Count 187bil/L (150-400) Neutrophils (%) (Auto) 71.3% (40-74) Lymphocytes (%) (Auto) 16.4% (14-46) Monocytes (%) (Auto) 9.5% (4-12) Eosinophils (%) (Auto) 2.0% (0-5) Basophils (%) (Auto) 0.3% (0-3) Sodium Level 138mEq/L (134-144) Potassium Level 3.7mEq/L (3.5-5.2) Chloride Level 98mEq/L (97-108) Carbon Dioxide Level 33mmol/L (18-29) Blood Urea Nitrogen 7mg/dL (8-27) Creatinine 0.54mg/dL (0.57-1.00) Estimat Glomerular Filtration Rate 163mL/min (>59) Glucose Level 108mg/dL (60-99) Calcium Level 8.5mg/dL (8.5-10.1) Magnesium Level 1.4mg/dL (1.6-2.6) Total Bilirubin 0.6mg/dL (0.0-1.2) Aspartate Amino Transf (AST/SGOT) 17U/L (0-50) Alanine Aminotransferase (ALT/SGPT) 13U/L (0-32) Alkaline Phosphatase 80U/L (25-165) Total Protein 5.7g/dL (6.4-8.4) Albumin 2.2g/dL (3.4-5.0) Microbiology Results Cultures are pending Discharge Medications Discharge Medications Amoxicillin/Clav K 875-125 mg (Augmentin 875-125 mg) 1 Each Tablet 1 TABLET PO BID Prescribed by: ANTHONY MARTINEZ MD Aspirin (Aspirin) 81 Mg Tablet 81 MG PO DAILY (Reported) Atorvastatin Calcium (Atorvastatin Calcium) 40 Mg Tablet 40 MG PO HS (Reported) Cholecalciferol (Vitamin D3) (Vitamin D) 1,000 Unit Capsule 2,000 UNIT PO DAILY (Reported) Cyanocobalamin/Folic Acid (Vitamin D59-Trmqh Acid Tablet) 1 Each Tablet 1 EACH PO DAILY (Reported) Doxepin (Doxepin) 50 Mg Capsule 2 CAP PO HS (Reported) Fluoxetine (Fluoxetine) 40 Mg Capsule 40 MG PO DAILY (Reported) Furosemide (Lasix) 40 Mg Tablet 40 MG PO DAILY Prescribed by: ANTHOYN MARTINEZ MD Iron Polysaccharides Complex (Ferrex 150) 150 Mg Capsule 150 MG PO BID (Reported ) Levothyroxine (Levothyroxine) 100 Mcg Tablet 100 MCG PO DAILY (Reported) Metronidazole (Flagyl) 500 Mg Tablet 500 MG PO Q8 Prescribed by: ANTHONY MARTINEZ MD Pregabalin (Lyrica) 150 Mg Capsule 150 MG PO TID Prescribed by: ANTHONY MARTINEZ MD As needed Albuterol HFA (Proair HFA) 8.5 Gm Hfa.aer.ad 2 PUFFS IH Q4 PRN PRN For Shortness of Breath (Reported) Clotrimazole (Athlete's Foot) 1 % Cream..g. 1 APPLIC TOPICAL TID PRN PRN dry cracking skin on feet (Reported) Diclofenac Sodium (Diclofenac Sodium) 1 % Gel..gram. 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 Follow-up Provider: Heide Lowery MD Follow-up with PCP in: 1 week El Martinez MD Apr 18, 2016 10:23
--- NOTE | 2016-04-18 16:36 | PROG NOTE ---
[address] [address] PROGRESS NOTE PATIENT: CORIE RAMIREZ : 1950 MR#: [id number] ADMIT: 04/15/2016 JOB ID: [id number] DATE: 04/18/1016 The patient's ostomy appliance over her right lower quadrant seems to be controlling the weeping. Skin integrity is unchanged. She tells me that she will be leaving today and has instituted hospice care. She [facility] with [facility] regarding the ostomy appliance and her wound care, followup with General Surgery p.r.n.
== END 2016-04-18 15:06 | disposition hospice, home (50) | DRG 394 ==
LOC: OSC 12:39
PROVIDERS: ADMIT Internal Medicine Infectious Disease; ATTEND Internal Medicine Infectious Disease
PROC: 30233N1 Transfusion of Nonautologous Red Blood Cells into Peripheral Vein, Percutaneous Approach (ICD-10-PCS; principal; 2016-04-16)
DX: K63.2 Fistula of intestine (principal); L03.311 Cellulitis of abdominal wall; R18.0 Malignant ascites; J96.11 Chronic respiratory failure with hypoxia; C79.60 Secondary malignant neoplasm of unspecified ovary; E11.40 Type 2 diabetes mellitus with diabetic neuropathy, unspecified; Z99.81 Dependence on supplemental oxygen; Z68.41 Body mass index [BMI] 40.0-44.9, adult; E83.42 Hypomagnesemia; Z66 Do not resuscitate; E87.6 Hypokalemia; Z51.5 Encounter for palliative care; E66.01 Morbid (severe) obesity due to excess calories; E03.9 Hypothyroidism, unspecified; I10 Essential (primary) hypertension; D64.9 Anemia, unspecified; G89.29 Other chronic pain; B95.7 Other staphylococcus as the cause of diseases classified elsewhere; Z85.3 Personal history of malignant neoplasm of breast; Z79.82 Long term (current) use of aspirin; Z87.891 Personal history of nicotine dependence; Z93.3 Colostomy status

== ENCOUNTER 2016-09-02 00:12 | Day surgery (SDC) | payer OTHER ==
[~2016-09-02] VITALS: Ht 160 cm; Wt 85.9 kg
[~2016-09-02 00:12] MED LIST changes: +FURO-128 PO; +HYDR1LIQ4 PO; +HYOS-22 PO; +KLO2T PO; +LACT10SO PO; +LORA0.5T PO; +METH5TAB3 PO; +METR500T PO; +OMEP20CA11 PO; +SENN-133 PO
[2016-09-02 08:50] VITALS: BP 102/65; PULSE 71; O2SAT 97
[2016-09-02] MEDS ORDERED: AGM875T PO (09:05)
[2016-09-02] MEDS ORDERED: PREG150C PO (09:06)
[2016-09-02 13:10] VITALS: BP 153/82; PULSE 64; RESP 18; O2SAT 97
--- NOTE | 2016-09-02 14:04 | NUR ---
[facility] for pleural drain removal Pt arrived to [facility] at 0845 for pleural drain removal. Port-a-cath already accessed by pt's hospice entrance attendant. Admission completed. No pre-op antibiotics ordered, as pt is currently on oral antibiotics. Vitals stable on 2L oxygen. Pt taken to laborer ammunition assembly at 1255 and returned at 1305. Drain removed w/out IV sedation. Pt to recover for 1 hr and will be transported home via dial-a-ride.
--- NOTE | 2016-09-02 14:49 | NUR ---
Discharge Discharge instructions discussed; pt voiced understanding. Pt scheduled for Dial-a-ride supervisor telephone clerks at 1500. plaster form maker to visit pt today at 1600 and will de-access port-a-cath then. RN to also assess drain site dressing.
--- NOTE | 2016-09-06 10:27 | DRSVH ---
PROCEDURE: PLEURX DRAIN REMOVAL INDICATIONS: Ca COMPARISON: None. Technique: The Pleurx catheter was prepped and draped sterilely. Traction was applied to the catheter , which was then removed. Dressing was applied. IMPRESSION: Pleurx catheter removal. Dictated by: Christo Roe M.D. on 09/06/2016 at 10:25 Approved by: Christo Roe M.D. on 09/06/2016 at 10:25
== END 2016-09-02 23:59 | disposition home or self-care (01) ==
LOC: SOUO 00:12
PROVIDERS: ATTEND Radiology Diagnostic Radiology
DX: Z46.82 Encounter for fitting and adjustment of non-vascular catheter (principal); C78.6 Secondary malignant neoplasm of retroperitoneum and peritoneum; C56.9 Malignant neoplasm of unspecified ovary; R18.0 Malignant ascites; Z85.3 Personal history of malignant neoplasm of breast